=== PATIENT | male | born 1965 | race African-American/Black ===

== ENCOUNTER 2020-01-24 20:06 | Emergency (ER) | payer MEDICARE, MEDICAID, SELFPAY ==
--- NOTE | ~2020-01-24 | XR_ITS ---
EXAMINATION: XR lumbar spine 2-3V EXAM DATE: 01/24/2020 20:28 INDICATION: Acute Pain L3, Left Side Pain After Lifting Heavy Object . TECHNIQUE: Lumber spine frontal, lateral, lateral L5-S1 projections for interpretation. There is no prior study for comparison. FINDINGS: There is mild to moderate disc disease at L5-S1, mild at the other lumbar levels. The verte bral bodies are aligned in the AP dimension. Mild to moderate lumbar facet arthropathy. Sacrum, sacro iliac joints, sacral arcuate lines are intact. There are no acute fractures identified. Paraspinal so ft tissue is unremarkable. IMPRESSION: Mild to moderate lumbar spondylosis. Reviewed, dictated and finalized at location A.
[2020-01-24 20:07] VITALS: BP 163/102; PULSE 95; RESP 22; TEMP 36.9; O2SAT 99
[2020-01-24 20:16] VITALS: BP 163/102; PULSE 95; RESP 22; TEMP 36.9; O2SAT 99
[2020-01-24] MEDS: KETOROLAC 30 MG/ML VIAL (*BKC) IV PUSH (21:01)
[2020-01-24] MEDS: diazePAM INJ (*CRX) 10 MG/2 ML SYRINGE 5 MG IV PUSH (21:01)
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
[2020-01-24 22:02] VITALS: BP 119/76; PULSE 74; RESP 18; O2SAT 100
== END 2020-01-24 22:04 | disposition home or self-care (01) ==
PROVIDERS: Emergency Provider Emergency Medicine; PCP Family Medicine
DX: S39.012A Strain of muscle, fascia and tendon of lower back, initial encounter (principal); M54.32 Sciatica, left side; K21.9 Gastro-esophageal reflux disease without esophagitis; E11.9 Type 2 diabetes mellitus without complications; Z79.84 Long term (current) use of oral hypoglycemic drugs; Z85.47 Personal history of malignant neoplasm of testis; X50.0XXA Overexertion from strenuous movement or load, initial encounter
CPT/HCPCS: 72100; 96374; 96375; 99284; J1885; J3360

== ENCOUNTER 2022-05-17 11:55 | Outpatient (CLI) | payer MEDICARE, SELFPAY ==
[2022-05-17 12:33] LABS: Basophils Percent Auto 0.3 % (0.2-1.2); Eosinophils Absolute Auto 0.1 K/mm3 (0-0.3); Eosinophils Percent Auto 1.1 % (0-4.4); Hematocrit 40.8 % (42.0-52.0); Hemoglobin 12.9 g/dL (14.0-18.0); Immature Granulocyte Absolute 0.02 K/mm3 (0.00-0.031); Immature Granulocyte Percent A 0.3 % (0-0.5); Lymphocytes Absolute Auto 2.69 K/mm3 (0.9-3.2); Lymphocytes Percent Auto 36.4 % (18.3-44.2); Mean Corpuscular HGB Conc 31.6 g/dl (32-36); Mean Corpuscular Volume 82.1 fl (80-100); Mean Platelet Volume 8.9 fl (7.4-10.4); Monocytes Absolute Auto 0.6 K/mm3 (0.1-0.6); Monocytes Percent Auto 7.8 % (2.6-8.5); Neutrophils Percent Auto 54.1 % (45.5-73.1); Platelet Count Result 227 k/mm3 (150-375); Red Blood Count 4.97 M/mm3 (4.6-6.20); Red Cell Distribution Width 14.6 % (11.5-14.5); White Blood Count 7.4 K/mm3 (4.5-10.0)
[2022-05-17 13:35] LABS: Hepatitis C Virus Antibody Reactive (Negative)
[2022-05-17 13:55] LABS: Hemoglobin A1C 7.9 % (<5.7)
[2022-05-17 14:00] LABS: Alanine Aminotransferase 24 U/L (6-50); Albumin Level 4.5 g/dL (3.5-5.1); Alkaline Phosphatase 65 U/L (38-126); Anion Gap 6 mmol/L (8-16); Aspartate Amino Transferase 24 U/L (17-59); Bilirubin,Total 0.5 mg/dL (0.2-1.3); Blood Urea Nitrogen 9 mg/dL (9-20); Calcium 8.5 mg/dL (8.4-10.2); Carbon Dioxide 29 mmol/L (22-30); Chloride 104 mmol/L (98-107); Cholesterol 145 mg/dL (0-200); Estimated Glomerular Filt Rate > 60; Glucose 142 mg/dL (65-110); HDL Direct 39 mg/dL; Potassium 4.2 mmol/L (3.4-5.0); Sodium 139 mmol/L (137-145); Triglycerides 63 mg/dL (<150)
[2022-05-17 14:12] LABS: LDL Cholesterol Direct 75 mg/dL
[2022-05-17 14:26] LABS: Prostate Specific Antigen 4.8 ng/mL (< OR = 4.0)
== END 2022-05-17 11:56 | disposition home or self-care (01) ==
PROVIDERS: PCP Internal Medicine; Visit Provider Nurse Practitioner
DX: E11.9 Type 2 diabetes mellitus without complications (principal); B19.20 Unspecified viral hepatitis C without hepatic coma; Z12.5 Encounter for screening for malignant neoplasm of prostate
CPT/HCPCS: 36415; 80053; 80061; 83036; 84153; 85025; 86803; 87522; G0103

== ENCOUNTER 2022-09-23 08:00 | Outpatient (NON) | payer MEDICARE, SELFPAY | END 2022-09-23 08:01 | disposition home or self-care (01) | LOC: ANHLAB 09-24 09:20 | PROVIDERS: PCP Internal Medicine; Visit Provider Internal Medicine Gastroenterology | DX: Z12.11 Encounter for screening for malignant neoplasm of colon (principal) | CPT/HCPCS: 88305 ==

== ENCOUNTER 2022-09-23 08:09 | Day surgery (SDC) | payer MEDICARE, SELFPAY ==
[2022-08-14 11:44] VITALS: BMI 27.8
[2022-09-10 09:26] VITALS: BMI 26.4
--- NOTE | 2022-09-23 07:02 | WPDANESEPPF ---
Anes - Initial Pre Proc Eval Procedure: Operation Date: 09/23/22 10:30 Proposed Procedures p Screening Colonoscopy - Tex Avila MD Date/Time: 09/23/22 07:02 Surgeon: Tex Avila MD Pre Op Diagnosis: Neoplasm Screening Patient Data Age: 56 Gender: M Height: 1.8 m Weight: 86 kg Allergies Allergy/AdvReac Type Severity Reaction Status Date / Time tramadol Allergy Intermediate Rash Verified 09/23/22 08:53 codeine Allergy Mild ITCHING Verified 09/23/22 08:53 Home Medications Medication Instructions Recorded Confirmed Type metformin 1,000 mg tablet 1,000 mg PO BID #180 tabs 05/21/22 09/23/22 Rx atorvastatin 10 mg tablet 10 mg PO QHS #90 tabs 09/19/22 09/23/22 Rx lisinopril 5 mg tablet 5 mg PO DAILY #90 tabs 09/19/22 09/23/22 Rx Patient hx anesthesia problems: none Family hx anesthesia problems: none Results Review: All pre-operative results and documents have been reviewed as part of the pre-operative evaluation. PENDING SALE TO [facility] Past Medical History Medical History (Updated 09/23/22 @ 07:03 by Gerson Lopez DO) Diabetes GERD (gastroesophageal reflux disease) Hyperlipidemia due to type 2 diabetes mellitus Hypertension associated with diabetes Testicular cancer Surgical History Surgical History (Updated 05/28/22 @ 14:04 by Elise Ibarra NP) H/O foot surgery Social History Social History (Updated 05/28/22 @ 13:08 by Jordyn Paredes CMA) Smoking packs per day: 0.5 Smoking cigarettes per day: 10.0 Years smoked: 15 Smoking pack-years: 7.50 Smoking status: Current every day smoker Tobacco type: cigarettes Alcohol intake: current Alcohol use details: rarely Substance use: current Substance use type: marijuana Lack of Transportation: No Lack of Food: Sometimes True Current Housing: Decline to Answer Concerned About Future Housing: Decline to Answer Difficulty Paying Gas/Electric Bills: No Difficulty Paying for Meds: No Currently Unemployed: No Education: High School Diploma/GED Difficulty w/ Childcare or Family Care: No Living arrangements: with family Gender identity (if verbalized by the patient): Male Sexual Orientation (if Verbalized by the Patient): Straight or Heterosexual Spiritual care concerns: No Anes - Eval Final PreProcedure Day of Procedure 09/23/22 07:02 Patient weight: overweight Heart: regular rate and rhythm Lungs: clear to auscultation Airway: Mallampati scale class II Neurological: alert and oriented Last oral intake: >/= 8 hours ASA classification: III Emergent: no Anesthetic plan: proceed Anesthesia type and monitoring: general GIVS and standard monitoring Results Review: All pre-operative results and documents have been reviewed as part of the pre-operative evaluation. Informed Consent: The patient's anesthetic plan and its attendant risks and benefits were discussed with the patient/family/POA. Questions were solicited and answers provided to the satisfaction of the patient/family/POA.
[2022-09-23 08:30] VITALS: BP 118/90; PULSE 84; RESP 20; TEMP 36.9; O2SAT 100
--- NOTE | 2022-09-23 08:54 | PM.HPGS ---
History of Present Illness History of Present Illness Consent: Risks, benefits, and alternatives have been discussed and questions answered. Patient agrees to proceed with procedure. Chief complaint: Neoplasm Screening Narrative: All Messer Jr. is a 56 year old male here for screening colonoscopy, last one about 10 years ago, also noted mild anemia Review of Systems Constitutional: Constitutional: Denies headache(s) and Denies weakness Eyes: Eyes: Denies blurry vision ENT: Reports Normal hearing present, Denies headache(s) and Denies neck pain Cardiovascular: Cardiovascular: Denies chest pain and Denies dyspnea Respiratory: Respiratory: Denies dyspnea Gastrointestinal: Gastrointestinal: Reports no additional gastrointestinal complaints Genitourinary: Genitourinary: Denies dysuria Musculoskeletal: Musculoskeletal: Denies neck pain Integumentary/Breasts: Skin/Breast: Denies dry skin Neurologic: Reports Normal hearing present, Denies headache(s) and Denies weakness Psychiatric: Psychiatric: Denies anxiety Endocrine: Endocrine: Denies change in body appearance Hematologic/Lymphatic: Hematologic/Lymphatic: Denies easy bleeding Allergic/Immunologic: Allergic/Immunologic: Denies urticaria PMFSH Past Medical History Medical History (Updated 09/23/22 @ 07:03 by Gerson Lopez DO) Diabetes GERD (gastroesophageal reflux disease) Hyperlipidemia due to type 2 diabetes mellitus Hypertension associated with diabetes Testicular cancer Surgical History Surgical History (Updated 05/28/22 @ 14:04 by Elise Ibarra NP) H/O foot surgery Social History Social History (Updated 05/28/22 @ 13:08 by Jordyn Paredes CMA) Smoking packs per day: 0.5 Smoking cigarettes per day: 10.0 Years smoked: 15 Smoking pack-years: 7.50 Smoking status: Current every day smoker Tobacco type: cigarettes Alcohol intake: current Alcohol use details: rarely Substance use: current Substance use type: marijuana Lack of Transportation: No Lack of Food: Sometimes True Current Housing: Decline to Answer Concerned About Future Housing: Decline to Answer Difficulty Paying Gas/Electric Bills: No Difficulty Paying for Meds: No Currently Unemployed: No Education: High School Diploma/GED Difficulty w/ Childcare or Family Care: No Living arrangements: with family Gender identity (if verbalized by the patient): Male Sexual Orientation (if Verbalized by the Patient): Straight or Heterosexual Spiritual care concerns: No Meds Home Medications and Allergies Home Medications Medication Instructions Recorded Confirmed Type metformin 1,000 mg tablet 1,000 mg PO BID #180 tabs 05/21/22 09/23/22 Rx atorvastatin 10 mg tablet 10 mg PO QHS #90 tabs 09/19/22 09/23/22 Rx lisinopril 5 mg tablet 5 mg PO DAILY #90 tabs 09/19/22 09/23/22 Rx Allergies Allergy/AdvReac Type Severity Reaction Status Date / Time tramadol Allergy Intermediate Rash Verified 09/23/22 08:53 codeine Allergy Mild ITCHING Verified 09/23/22 08:53 Exam Const: General: comfortable and no acute distress HENMT: Face/Nose/Sinus: Normal nares present Eyes: General: appearance normal, both eyes and all related structures Neck: Neck: no JVD Resp: Auscultation: clear to auscultation bilaterally Cardio: Rate: regular rate Rhythm: regular rhythm GI: Inspection: non-distended GI Palp: Yes Soft to palpation Skin: General skin exam: normal color Neuro: General: gait normal Speech: normal speech Extrem: General: normal to inspection Psych: Mental Status: mental status grossly normal Assessment and Plan Assessment and plan (1) Screening for colon cancer: Code(s): Z12.11 - Encounter for screening for malignant neoplasm of colon Status: Acute Assessment and Plan: colonoscopy
[2022-09-23 08:58] LABS: Glucose Point of Care 169 mg/dl (65-105)
[2022-09-23] MEDS: LACTATED RINGERS 1,000 ML 150 ML IV CONT (08:59)
[2022-09-23 09:13] VITALS: BP 102/72; PULSE 86; RESP 15; O2SAT 97
[2022-09-23 09:23] VITALS: BP 105/79; PULSE 74; RESP 16; O2SAT 100
[2022-09-23 09:33] VITALS: BP 131/98; PULSE 79; RESP 16; O2SAT 95
[2022-09-23 09:50] VITALS: BP 131/92; PULSE 66; RESP 16; O2SAT 100
--- NOTE | 2022-09-23 09:57 | SUR.PHASEII ---
completed discharge instruction-stressed the restriction of not driving for 12hrs- pt not in agreement
--- NOTE | 2022-09-23 11:12 | WPDANESPN ---
Anes - Prog Note Post-Op Date/Time: 09/23/22 11:12 Cardiovascular status: normal Respiratory status: normal Airway patency: baseline Mental status: baseline Post-Op hydration status: normal Vital Signs: Last Vital Signs Temp 36.9 C 09/23/22 08:30 Pulse 66 09/23/22 09:50 Resp 16 09/23/22 09:50 BP 131/92 H 09/23/22 09:50 Pulse Ox 100 09/23/22 09:50 O2 Del Method Room Air 09/23/22 09:50 Pain Score (VAS): 0 I/O: Intake & Output 09/22/22 09/23/22 09/23/22 23:59 07:59 15:59 Intake Total 300 Balance 300 09/23/22 08:55 POC Capillary Glucose 169 H Post-procedural complaints: none Patient Feedback: Patient satisfied with anesthetic care. Other Findings: Patient vital signs back to baseline. Patient denies nausea and vomiting. Patient's pain under control. Patient OK for discharge.
== END 2022-09-23 10:52 | disposition home or self-care (01) ==
PROVIDERS: PCP Internal Medicine; Visit Provider Internal Medicine Gastroenterology
PROC: 0DJD8ZZ Inspection of Lower Intestinal Tract, Via Natural or Artificial Opening Endoscopic (ICD-10-PCS; CPT 45378; principal; 2022-09-23 10:30)
DX: Z12.11 Encounter for screening for malignant neoplasm of colon (principal)
CPT/HCPCS: 45385

== ENCOUNTER 2022-11-05 13:28 | Outpatient (CLI) | payer MEDICARE, SELFPAY ==
[2022-11-05 18:40] LABS: Basophils Percent Auto 0.3 % (0.2-1.2); Eosinophils Absolute Auto 0.1 K/mm3 (0-0.3); Eosinophils Percent Auto 0.9 % (0-4.4); Hematocrit 41.1 % (42.0-52.0); Hemoglobin 12.8 g/dL (14.0-18.0); Immature Granulocyte Absolute 0.03 K/mm3 (0.00-0.031); Immature Granulocyte Percent A 0.3 % (0-0.5); Lymphocytes Absolute Auto 2.86 K/mm3 (0.9-3.2); Lymphocytes Percent Auto 31.7 % (18.3-44.2); Mean Corpuscular HGB Conc 31.1 g/dl (32-36); Mean Corpuscular Volume 83.4 fl (80-100); Mean Platelet Volume 10.8 fl (7.4-10.4); Monocytes Absolute Auto 0.7 K/mm3 (0.1-0.6); Monocytes Percent Auto 7.2 % (2.6-8.5); Neutrophils Absolute Auto 5.4 K/mm3 (1.3-6.7); Neutrophils Percent Auto 59.6 % (45.5-73.1); Platelet Count Result 269 k/mm3 (150-375); Red Blood Count 4.93 M/mm3 (4.6-6.20); Red Cell Distribution Width 14.1 % (11.5-14.5)
[2022-11-05 19:10] LABS: Iron 80 ug/dL (49-181)
[2022-11-05 19:16] LABS: Prostate Specific Antigen 5.7 ng/mL (< OR = 4.0)
[2022-11-05 19:23] LABS: Percent Iron Saturation 25 % (20-50)
[2022-11-05 19:50] LABS: Hepatitis C Virus Antibody Reactive (Negative)
[2022-11-05 19:52] LABS: Folic Acid 12.9 ng/mL (2.76->20)
[2022-11-06 14:30] LABS: Alanine Aminotransferase 23 U/L (6-50); Albumin Level 4.5 g/dL (3.5-5.1); Alkaline Phosphatase 74 U/L (38-126); Anion Gap 8 mmol/L (8-16); Aspartate Amino Transferase 26 U/L (17-59); Bilirubin,Total 0.3 mg/dL (0.2-1.3); Blood Urea Nitrogen 5 mg/dL (9-20); Calcium 9.5 mg/dL (8.4-10.2); Carbon Dioxide 27 mmol/L (22-30); Chloride 105 mmol/L (98-107); Estimated Glomerular Filt Rate > 60; Glucose 88 mg/dL (65-110); Potassium 4.7 mmol/L (3.4-5.0); Sodium 140 mmol/L (137-145)
[2022-11-06 14:33] LABS: Hemoglobin A1C 7.2 % (<5.7)
[2022-11-08 16:35] LABS: Hepatitis C RNA, Quant PCR <15 IU/mL
== END 2022-11-05 13:29 | disposition home or self-care (01) ==
LOC: ANHGOSHLAB 13:30
PROVIDERS: PCP Internal Medicine; Visit Provider Nurse Practitioner
DX: D64.9 Anemia, unspecified (principal); R97.20 Elevated prostate specific antigen [PSA]; B19.20 Unspecified viral hepatitis C without hepatic coma; E11.9 Type 2 diabetes mellitus without complications
CPT/HCPCS: 36415; 80053; 82607; 82728; 82746; 83036; 83540; 83550; 84153; 85025; 86803; 87522

== ENCOUNTER 2023-05-10 10:02 | Emergency (ER) | payer MEDICARE, SELFPAY ==
[2023-05-10 10:23] VITALS: BP 142/85; PULSE 94; RESP 16; TEMP 36.8; O2SAT 100
--- NOTE | 2023-05-10 11:04 | ED.GENADULT ---
HPI - General Adult General Chief complaint: Unspecified Stated complaint: nose infection Time Seen by Provider: 05/10/23 10:38 Source: patient Mode of arrival: ambulatory Limitations: no limitations History of Present Illness HPI narrative: Patient is a 57 y/o male who presents to the ED with concern for a nasal infection. Patient reports having nasal irritation in his R nare for the past 1 week. He complains of itching, pain, nasal drainage, right-sided nasal congestion. He states he feels as though he has something in his nose. He has been picking his nose frequently. He has been using Neosporin without improvement. He states he had similar symptoms in the past and was seen here and prescribed an antibiotic ointment which resolved the issue. Denies any other URI symptoms, cough, fevers, shortness of breath, difficulty swallowing or breathing. Related Data Allergies Allergy/AdvReac Type Severity Reaction Status Date / Time tramadol Allergy Intermediate Rash Verified 05/10/23 10:28 codeine Allergy Mild ITCHING Verified 05/10/23 10:28 Review of Systems Review of Systems: CONSTITUTIONAL: Denies fever, chills, or sweats. ENT: See HPI. CARDIOVASCULAR: Denies chest pain. RESPIRATORY: Denies cough or dyspnea. All systems reviewed & are unremarkable except as noted in HPI and below PMFSH Past Medical History Medical History Diabetes GERD (gastroesophageal reflux disease) Hyperlipidemia due to type 2 diabetes mellitus Hypertension associated with diabetes Testicular cancer Surgical History Surgical History H/O foot surgery Social History Social History Smoking packs per day: 0.5 Smoking cigarettes per day: 10.0 Years smoked: 15 Smoking pack-years: 7.50 Smoking status: Current every day smoker Tobacco type: cigarettes Alcohol intake: current Alcohol use details: rarely Substance use: current Substance use type: marijuana Lack of Transportation: No Lack of Food: Sometimes True Current Housing: Decline to Answer Concerned About Future Housing: Decline to Answer Difficulty Paying Gas/Electric Bills: No Difficulty Paying for Meds: No Currently Unemployed: No Education: High School Diploma/GED Difficulty w/ Childcare or Family Care: No Living arrangements: with family Gender identity (if verbalized by the patient): Male Sexual Orientation (if Verbalized by the Patient): Straight or Heterosexual Spiritual care concerns: No Exam Narrative: GENERAL: Well appearing, well-nourished, non-toxic, in no acute distress. HEAD: Normocephalic, atraumatic. ENT: Deviated nasal septum. No nasal drainage. R nare very dry, dried crusting in the nasal vestibule. No bleeding. No surrounding erythema. No evidence of focal abscess. TTP along R outer inferior nose. RESPIRATORY: Airway patent, respirations nonlabored. CARDIOVASCULAR: Regular rate and rhythm. MUSCULOSKELETAL: Moves all extremities. No gross deformities. SKIN: Warm, dry, normal color. NEURO: A&O X3. Speech clear. PSYCHIATRIC: Appropriate mood and affect. Normal interaction. Course Vital Signs Vital signs: Vital Signs Temperature 98.3 F 05/10/23 10:23 Pulse Rate 94 05/10/23 10:23 Respiratory Rate 16 05/10/23 10:23 Blood Pressure 142/85 H 05/10/23 10:23 Pulse Oximetry 100 05/10/23 10:23 Oxygen Delivery Room Air 05/10/23 10:23 Temperature 98.3 F 05/10/23 10:23 Pulse Rate 94 05/10/23 10:23 Respiratory Rate 16 05/10/23 10:23 Blood Pressure 142/85 H 05/10/23 10:23 Pulse Oximetry 100 05/10/23 10:23 Oxygen Delivery Room Air 05/10/23 10:23 Medical Decision Making MDM Narrative Medical decision making narrative: Will prescribe mupirocin for possible nasal infection. Advised efrain
[2023-05-10 12:08] LABS: Influenza A QL RT-PCR Negative (Negative); Influenza B QL RT-PCR Negative (Negative); RSV RNA, RT-PCR Negative (Negative); SARS-CoV-2 RNA PCR Negative (Negative)
== END 2023-05-10 12:07 | disposition home or self-care (01) ==
PROVIDERS: Emergency Provider Physician Assistant; PCP Internal Medicine
DX: J34.89 Other specified disorders of nose and nasal sinuses (principal); Z20.822 Contact with and (suspected) exposure to COVID-19; E11.69 Type 2 diabetes mellitus with other specified complication; E78.5 Hyperlipidemia, unspecified; I15.2 Hypertension secondary to endocrine disorders; K21.9 Gastro-esophageal reflux disease without esophagitis; F17.210 Nicotine dependence, cigarettes, uncomplicated; Z85.47 Personal history of malignant neoplasm of testis
CPT/HCPCS: 87637; 99283

== ENCOUNTER 2023-05-25 17:50 | Emergency (ER) | payer MEDICARE, SELFPAY ==
[2023-05-25 17:59] VITALS: BP 145/100; PULSE 100; RESP 20; TEMP 36.7; O2SAT 98
--- NOTE | 2023-05-25 19:35 | ED.GENADULT ---
HPI - General Adult General Chief complaint: Skin/Abscess/Foreign Body Stated complaint: Nose infection Time Seen by Provider: 05/25/23 19:30 History of Present Illness HPI narrative: 57-year-old male present to the emergency department for evaluation of irritation on the inside of his right nostril. Patient states it has been going on for an extended period of time. Patient states he has had previous follow-up with physicians and he was told he had a nose infection . Patient suspects that he has a parasite in his nose. Related Data Allergies Allergy/AdvReac Type Severity Reaction Status Date / Time tramadol Allergy Intermediate Rash Verified 05/10/23 10:28 codeine Allergy Mild ITCHING Verified 05/10/23 10:28 Review of Systems Review of Systems: All systems reviewed & are unremarkable except as noted in HPI and below PMFSH Past Medical History Medical History Diabetes GERD (gastroesophageal reflux disease) Hyperlipidemia due to type 2 diabetes mellitus Hypertension associated with diabetes Testicular cancer Surgical History Surgical History H/O foot surgery Social History Social History Smoking packs per day: 0.5 Smoking cigarettes per day: 10.0 Years smoked: 15 Smoking pack-years: 7.50 Smoking status: Current every day smoker Tobacco type: cigarettes Alcohol intake: current Alcohol use details: rarely Substance use: current Substance use type: marijuana Lack of Transportation: No Lack of Food: Sometimes True Current Housing: Decline to Answer Concerned About Future Housing: Decline to Answer Difficulty Paying Gas/Electric Bills: No Difficulty Paying for Meds: No Currently Unemployed: No Education: High School Diploma/GED Difficulty w/ Childcare or Family Care: No Living arrangements: with family Gender identity (if verbalized by the patient): Male Sexual Orientation (if Verbalized by the Patient): Straight or Heterosexual Spiritual care concerns: No Exam Narrative: APPEARANCE: Well appearing, no pain, no distress, well-nourished. HEAD: normocephalic, atraumatic. EYES: PERRLA/EOMI, conjunctivae clear. NOSE: Excoriation inside of the right nares EARS:TMS clear with good light reflex. THROAT: Pharynx clear, no exudate. NECK: Supple. No adenopathy, no masses. RESPIRATORY: Airway patent, respirations nonlabored. Clear to auscultation bilaterally, no rales, rhonchi, wheezing. CARDIOVASCULAR: Regular rate and rhythm without murmurs rubs or gallops. ABDOMINAL: Soft, nontender, nondistended, normal bowel sounds MUSCULOSKELETAL: Moves all extremities. Strength/ROM intact, No edema, No calf tenderness. NEURO: Alert. Cranial nerves II through XII intact. grossly intact SKIN: Warm, dry. Normal Color Course Course Emergency Course: 57-year-old male presents to the emergency department for concern of nasal parasites. No evidence nasal parasites by was seen. Patient does have excoriation on the inside of his nostril and patient has been actively picking and scratching at his nostril. Patient was treated with Bactroban for suspected bacterial infection and patient was provided follow-up with ENT. Vital Signs Vital signs: Vital Signs Temperature 98.0 F 05/25/23 17:59 Pulse Rate 100 05/25/23 17:59 Respiratory Rate 20 05/25/23 17:59 Blood Pressure 145/100 H 05/25/23 17:59 Pulse Oximetry 98 05/25/23 17:59 Oxygen Delivery Room Air 05/25/23 17:59 Temperature 98.0 F 05/25/23 17:59 Pulse Rate 100 05/25/23 17:59 Respiratory Rate 20 05/25/23 17:59 Blood Pressure 145/100 H 05/25/23 17:59 Pulse Oximetry 98 05/25/23 17:59 Oxygen Delivery Room Air 05/25/23 17:59 Medical Decision Making Vital Signs Vital Signs: Vital Signs Temperature
== END 2023-05-25 20:16 | disposition home or self-care (01) ==
LOC: ANHED 19:56
PROVIDERS: Emergency Provider Emergency Medicine; PCP Internal Medicine
DX: L98.8 Other specified disorders of the skin and subcutaneous tissue (principal); E11.69 Type 2 diabetes mellitus with other specified complication; E78.5 Hyperlipidemia, unspecified; I15.2 Hypertension secondary to endocrine disorders; K21.9 Gastro-esophageal reflux disease without esophagitis; F17.210 Nicotine dependence, cigarettes, uncomplicated; Z85.47 Personal history of malignant neoplasm of testis; Z79.84 Long term (current) use of oral hypoglycemic drugs
CPT/HCPCS: 99283

== ENCOUNTER 2023-05-27 13:18 | Outpatient (CLI) | payer MEDICARE, SELFPAY ==
--- NOTE | ~2023-05-27 | XR_ITS ---
EXAMINATION: XR facial bones min 3V DATE: 05/27/2023 13:38 INDICATION: Parasites in right nostril. TECHNIQUE: 4 views of the facial bones were obtained. COMPARISON: Head CT 07/18/2012 FINDINGS: Bone alignment is normal. No fracture. The paranasal sinuses are normal. IMPRESSION: 1. Normal facial bones. Reviewed, dictated and finalized at location E. D FINISHER IMPRESSION: 1. Normal facial bones.
== END 2023-05-27 13:19 | disposition home or self-care (01) ==
PROVIDERS: PCP Internal Medicine; Visit Provider Nurse Practitioner
DX: J34.89 Other specified disorders of nose and nasal sinuses (principal)
CPT/HCPCS: 70150

== ENCOUNTER 2023-06-27 13:09 | Outpatient (CLI) | payer MEDICARE, SELFPAY ==
--- NOTE | ~2023-06-27 | CT_ITS ---
EXAMINATION: CT sinus wo con DATE: 06/27/2023 13:20 INDICATION: Headache. Pressure in the nasal area. TECHNIQUE: Computed tomography (CT) of the paranasal sinuses was performed without contrast. Iterativ e reconstruction technique was employed. Exam dose: 394.17 mGy-cm total exam DLP. COMPARISON: None FINDINGS: There is slight rightward bowing of nasal septum. Moderately prominent symmetric soft tissue swelling of the inferior nasal turbinates. The ostiomeatal units are patent bilaterally. The frontal sinuses are well-developed and aerated. Minimal focal lucent septal soft tissue thickenin g in the ethmoids. The sphenoid sinuses are normally developed and aerated. Small mucus retention cyst in the anteromedial lower right maxillary sinus.. There are several small focal areas of mucoperiosteal thickening of the left maxillary sinus. The mastoid air cells are well-developed and aerated. IMPRESSION: Minimal focal mucosal periosteal thickening of the left maxillary sinus, small right max illary sinus mucous retention cyst Minimal focal septal soft tissue thickening the ethmoid air cells Paranasal sinuses, ostiomeatal units and mastoid air cells are otherwise clear Reviewed, dictated and finalized at Location A. Reviewed, dictated and finalized at location B. IMPRESSION: Minimal focal mucosal periosteal thickening of the left maxillary sinus, small right maxillary sinus mucous retention cyst Minimal focal septal soft tissue thickening the ethmoid air cells Paranasal sinuses, ostiomeatal units and mastoid air cells are otherwise clear
== END 2023-06-27 13:10 ==
LOC: GOSHIMG 13:10
PROVIDERS: PCP Internal Medicine; Visit Provider Otolaryngology
DX: L73.9 Follicular disorder, unspecified (principal); J32.9 Chronic sinusitis, unspecified
CPT/HCPCS: 70486

== ENCOUNTER 2023-09-01 09:45 | Emergency (ER) | payer MEDICARE, SELFPAY ==
[2023-09-01 09:46] VITALS: BP 140/90; PULSE 75; RESP 16; TEMP 36.7; O2SAT 100
[2023-09-01 10:31] LABS: Basophils Percent Auto 0.3 % (0.2-1.2); Eosinophils Percent Auto 0.5 % (0-4.4); Hematocrit 42.4 % (42.0-52.0); Hemoglobin 13.2 g/dL (14.0-18.0); Immature Granulocyte Absolute 0.01 K/mm3 (0.00-0.031); Immature Granulocyte Percent A 0.1 % (0-0.5); Lymphocytes Absolute Auto 2.26 K/mm3 (0.9-3.2); Lymphocytes Percent Auto 28.4 % (18.3-44.2); Mean Corpuscular HGB Conc 31.1 g/dl (32-36); Mean Corpuscular Hemoglobin 25.4 pg (26-34); Mean Corpuscular Volume 81.5 fl (80-100); Mean Platelet Volume 8.9 fl (7.4-10.4); Monocytes Absolute Auto 0.6 K/mm3 (0.1-0.6); Monocytes Percent Auto 7.2 % (2.6-8.5); Neutrophils Absolute Auto 5.1 K/mm3 (1.3-6.7); Neutrophils Percent Auto 63.5 % (45.5-73.1); Platelet Count Result 315 k/mm3 (150-375); Red Cell Distribution Width 13.5 % (11.5-14.5)
[2023-09-01 10:35] LABS: Appearance Urine Cloudy (Clear); Bacteria Urine None Seen /hpf; Bilirubin Urine Negative (Negative); Blood Urine Negative (Negative); Color Urine Dark Yellow (Yellow); Glucose Urine UA 1+ mg/dL (Negative); Ketones Urine Negative (Negative); Leukocyte Esterase Ur 2+ LEU/UL (Negative); Nitrate Urine Negative (Negative); Protein Urine 2+ mg/dL (Negative); RBC Urine 0-2 /hpf (0-2); Specific Grav Ur 1.026 (1.001-1.035); Squamous Epithelial Cell Urine None Seen /hpf (Few); WBC Urine >100 /hpf (0-3); pH Urine 5.5 (5.0-9.0)
[2023-09-01 10:39] LABS: Alanine Aminotransferase 17 U/L (6-50); Albumin Level 4.7 g/dL (3.5-5.1); Alkaline Phosphatase 98 U/L (38-126); Anion Gap 7 mmol/L (4-12); Aspartate Amino Transferase 23 U/L (17-59); Bilirubin,Total 0.6 mg/dL (0.2-1.3); Blood Urea Nitrogen 8 mg/dL (9-20); Calcium 9.5 mg/dL (8.4-10.2); Carbon Dioxide 27 mmol/L (22-30); Chloride 103 mmol/L (98-107); Estimated CRCL calculation 95 ml/min; Estimated Glomerular Filt Rate > 60; Glucose 156 mg/dL (65-110); Potassium 4.5 mmol/L (3.4-5.0); Sodium 137 mmol/L (137-145)
[2023-09-01 10:44] LABS: Acetaminophen < 10 ug/mL (10-30); Ethanol < 10 mg/dL (<10); Salicylate < 1.0 mg/dL (2-20)
[2023-09-01 10:47] LABS: Add Urine Microscopic? YES
[2023-09-01 10:49] LABS: Barbiturate Screen Urine Negative (Negative); Benzodiazepines Screen Urine Negative (Negative)
[2023-09-01 10:51] LABS: Amphetamine Screen Urine Positive (Negative); Cannabinoid Screen Urine Negative (Negative); Cocaine Screen Urine Negative (Negative); Methadone Screen Urine Negative (Negative); Opiate Screen Urine Negative (Negative); Phencyclidine Screen Urine Negative (Negative)
[2023-09-01] MEDS: cefTRIAXone 1 GM VIAL IM (11:15)
[2023-09-01] MEDS: LIDOCAINE HCL 1% LOCAL INJ 10 ML VIAL (11:15)
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
[2023-09-01 13:19] LABS: Influenza A QL RT-PCR Negative (Negative); Influenza B QL RT-PCR Negative (Negative); RSV RNA, RT-PCR Negative (Negative); SARS-CoV-2 RNA PCR Negative (Negative)
--- NOTE | 2023-09-01 13:57 | PC.NURSE ---
Pt found wandering ED halls, pt states can I go get a soda? while pointing to the ED waiting room. Pt was able to be redirected back to ED15. Pts RN notified.
[2023-09-01 16:15] VITALS: RESP 16
== END 2023-09-01 16:17 ==
PROVIDERS: Emergency Provider Emergency Medicine; PCP Internal Medicine
DX: R45.6 Violent behavior (principal); F19.10 Other psychoactive substance abuse, uncomplicated; I15.2 Hypertension secondary to endocrine disorders; E11.69 Type 2 diabetes mellitus with other specified complication; E78.5 Hyperlipidemia, unspecified; K21.9 Gastro-esophageal reflux disease without esophagitis; F17.210 Nicotine dependence, cigarettes, uncomplicated; Z11.52 Encounter for screening for COVID-19; R82.998 Other abnormal findings in urine; Z79.84 Long term (current) use of oral hypoglycemic drugs; Z79.899 Other long term (current) drug therapy; Z20.822 Contact with and (suspected) exposure to COVID-19
CPT/HCPCS: 36415; 80053; 80307; 81001; 84443; 85025; 87086; 87088; 87637; 96372; 99284; J0696; J2003

== ENCOUNTER 2023-12-05 20:03 | Emergency (ER) | payer MEDICARE, SELFPAY ==
[2023-12-05] VITALS (7 sets, daily range): BP systolic 102–141; BP diastolic 81–97; PULSE 79–103; RESP 16–22; TEMP 36.2–36.6; O2SAT 96–100
--- NOTE | ~2023-12-05 | XR_ITS ---
EXAMINATION: XR chest 1V portable DATE: 12/05/2023 20:34 INDICATION: Drug overdose. TECHNIQUE: A single frontal view of the chest was obtained on 2 radiographs. COMPARISON: Chest 2 views 12/01/2008 FINDINGS: There is no pneumonia, pleural effusion, or pneumothorax. The heart size is normal. There a re old healed right rib fractures. IMPRESSION: 1. No acute cardiopulmonary disease. Reviewed, dictated and finalized at location A.
--- NOTE | 2023-12-05 20:10 | ECG_ITS ---
Test Date: 2023-12-05 20:15:44 Measurements Intervals [place] Rate: 96 P: 51 IN: 161 QRS: -9 QRSD: 117 T: 11 QT: 376 QTc: 477 Interpretive Statements SINUS RHYTHM MODERATE INTRAVENTRICULAR CONDUCTION DELAY [110+ ms QRS DURATION] No previous ECG available for comparison Electronically Signed On 12-06-2023 14:39:29 CDT by Braden Rosenberg M.D.
--- NOTE | 2023-12-05 20:18 | ED.OVERDOSE ---
HPI - Overdose General Chief Complaint: Overdose Stated Complaint: OVERDOSE Time Seen by Provider: 12/05/23 20:11 Source: patient Mode of arrival: EMS Limitations: clinical condition History of Present Illness HPI Narrative: This is a 58-year-old male who presents to the ED for chief complaint of possible overdose. EMS was called out for the patient being unresponsive on the ground. Per EMS he was apneic and pulseless on arrival. EMS started CPR gave Narcan IM x2 and quickly got pulses. He started to come to and became alert ordered x1. EMS states the patient was with a friend gely and has known history of ETOH and marijuana use. Patient is unsure of what happened this evening. He is not sure where he was or where he came from. He can tell me that he has history of diabetes and that he has some tightness in his chest. He feels that his breathing is normal. Denies any further complaints at this time, although history is somewhat Related Data Allergies Allergy/AdvReac Type Severity Reaction Status Date / Time tramadol Allergy Intermediate Rash Verified 12/05/23 20:48 codeine Allergy Mild ITCHING Verified 12/05/23 20:48 Review of Systems Review of Systems: [facility] systems as [facility] Past Medical History Medical History Diabetes GERD (gastroesophageal reflux disease) Hyperlipidemia due to type 2 diabetes mellitus Hypertension associated with diabetes Testicular cancer Surgical History Surgical History H/O foot surgery Social History Social History Smoking packs per day: 0.5 Smoking cigarettes per day: 10.0 Years smoked: 15 Smoking pack-years: 7.50 Smoking status: Current every day smoker Tobacco type: cigarettes Alcohol intake: current Alcohol use details: rarely Substance use: current Substance use type: unknown Do You Feel Safe in your Home?: Yes Lack of Transportation: No Lack of Food: Often True Current Housing: I Do Not Have Housing Concerned About Future Housing: Decline to Answer Difficulty Paying Gas/Electric Bills: No Difficulty Paying for Meds: No Currently Unemployed: No Education: High School Diploma/GED Difficulty w/ Childcare or Family Care: No Living arrangements: with family Gender identity (if verbalized by the patient): Male Sexual Orientation (if Verbalized by the Patient): Straight or Heterosexual Spiritual care concerns: No Exam Narrative: GENERAL: Well-appearing, well-nourished, and in no acute distress. HEAD: Normocephalic, atraumatic. EYES: PERRLA and EOMI. ENT: Nares clear, no rhinorrhea or epistaxis. Mucous membranes moist. Oropharynx without tonsillar hypertrophy exudate or other lesions. NECK: Supple. No adenopathy or masses. CHEST: No respiratory distress. Clear to auscultation. No wheezes rales or rhonchi HEART: Regular rate and rhythm. No murmur heard. Normal peripheral pulses. ABDOMEN: Soft, nontender, nondistended, normal active bowel sounds. MSK: Normal range of motion. No edema. SKIN: Warm, dry, no rash. NEURO: Alert and oriented x3-4. No focal deficits. PSYCH: Normal mood and affect. Course Vital Signs Vital signs: Vital Signs Temperature 97.1 F L 12/05/23 20:05 Pulse Rate 88 12/05/23 20:05 Respiratory Rate 18 12/05/23 20:05 Blood Pressure 141/96 H 12/05/23 20:05 Pulse Oximetry 98 12/05/23 20:05 Temperature 97.8 F 12/05/23 20:18 Pulse Rate 89 12/05/23 22:36 Respiratory Rate 20 12/05/23 22:36 Blood Pressure 122/86 12/05/23 22:36 Pulse Oximetry 96 12/05/23 22:36 Oxygen Delivery Room Air 12/05/23 20:18 MDM - Overdose MDM Narrative Medical decision making narrative: This is a 58-year-old male who presents to the ED for chief complaint of possible overdose. found by EMS,
[2023-12-05 20:47] LABS: Glucose Point of Care 278 mg/dl (65-105)
[2023-12-05] MEDS: SODIUM CHLORIDE 0.9% IV 1,000 ML 999 ML IV CONT ×2 (20:49→22:02)
[2023-12-05 20:53] LABS: Add Urine Microscopic? YES; Appearance Urine Clear (Clear); Bacteria Urine None Seen /hpf; Bilirubin Urine Negative (Negative); Blood Urine Negative (Negative); Color Urine Yellow (Yellow); Glucose Urine UA 3+ mg/dL (Negative); Ketones Urine Negative (Negative); Leukocyte Esterase Ur Trace LEU/UL (Negative); Nitrate Urine Negative (Negative); Non Pathogenic Casts 0-2; Protein Urine 2+ mg/dL (Negative); RBC Urine 0-2 /hpf (0-2); Specific Grav Ur 1.013 (1.001-1.035); Squamous Epithelial Cell Urine None Seen /hpf (Few); Urobilinogen Urine 0.2 mg/dL (<2.0); WBC Urine 21-50 /hpf (0-3)
[2023-12-05 21:50] LABS: Basophils Percent Auto 0.1 % (0.2-1.2); Eosinophils Percent Auto 0.1 % (0-4.4); Hematocrit 39.7 % (42.0-52.0); Hemoglobin 12.4 g/dL (14.0-18.0); Immature Granulocyte Percent A 0.7 % (0-0.5); Lymphocytes Absolute Auto 1.15 K/mm3 (0.9-3.2); Lymphocytes Percent Auto 7.7 % (18.3-44.2); Mean Corpuscular HGB Conc 31.2 g/dl (32-36); Mean Corpuscular Hemoglobin 25.5 pg (26-34); Mean Corpuscular Volume 81.7 fl (80-100); Monocytes Percent Auto 6.4 % (2.6-8.5); Neutrophils Absolute Auto 12.7 K/mm3 (1.3-6.7); Platelet Count Result 224 k/mm3 (150-375); Red Blood Count 4.86 M/mm3 (4.6-6.20); Red Cell Distribution Width 14.7 % (11.5-14.5)
[2023-12-05 22:00] LABS: Acetaminophen < 10 ug/mL (10-30); Ethanol < 10 mg/dL (<10); Salicylate < 1.0 mg/dL (2-20)
[2023-12-05 22:01] LABS: Alanine Aminotransferase 24 U/L (6-50); Albumin Level 4.2 g/dL (3.5-5.1); Alkaline Phosphatase 67 U/L (38-126); Anion Gap 13 mmol/L (4-12); Aspartate Amino Transferase 29 U/L (17-59); Bilirubin,Total 0.2 mg/dL (0.2-1.3); Blood Urea Nitrogen 14 mg/dL (9-20); Calcium 8.8 mg/dL (8.4-10.2); Carbon Dioxide 23 mmol/L (22-30); Chloride 102 mmol/L (98-107); Estimated CRCL calculation 78 ml/min; Estimated Glomerular Filt Rate > 60; Glucose 207 mg/dL (65-110); Potassium 4.7 mmol/L (3.4-5.0); Sodium 138 mmol/L (137-145)
[2023-12-05 22:26] LABS: SARS-CoV-2 RNA PCR Negative (Negative)
[2023-12-05 23:30] LABS: Barbiturate Screen Urine Negative (Negative); Benzodiazepines Screen Urine Negative (Negative)
[2023-12-05 23:32] LABS: Cannabinoid Screen Urine Negative (Negative); Cocaine Screen Urine Negative (Negative); Methadone Screen Urine Negative (Negative); Opiate Screen Urine Negative (Negative); Phencyclidine Screen Urine Negative (Negative)
[2023-12-05 23:55] LABS: Amphetamine Screen Urine Positive (Negative)
[2023-12-06 00:24] VITALS: BP 102/81; PULSE 81; RESP 17; O2SAT 97
== END 2023-12-06 00:40 | disposition home or self-care (01) ==
PROVIDERS: Emergency Medicine; Emergency Provider Physician Assistant; PCP Internal Medicine
DX: T40.2X1A Poisoning by other opioids, accidental (unintentional), initial encounter (principal); N39.0 Urinary tract infection, site not specified; Z20.822 Contact with and (suspected) exposure to COVID-19; K21.9 Gastro-esophageal reflux disease without esophagitis; E11.69 Type 2 diabetes mellitus with other specified complication; E78.5 Hyperlipidemia, unspecified; I15.2 Hypertension secondary to endocrine disorders; F17.210 Nicotine dependence, cigarettes, uncomplicated; Z85.47 Personal history of malignant neoplasm of testis; Z79.84 Long term (current) use of oral hypoglycemic drugs; I45.9 Conduction disorder, unspecified
CPT/HCPCS: 36415; 71045; 80053; 80307; 81001; 82948; 84443; 85025; 87086; 87635; 93005; 96361; 96365; 99284; J0696; J7030

== ENCOUNTER 2024-05-29 13:45 | Outpatient (CLI) | payer MEDICARE, SELFPAY ==
--- OUTSIDE RECORDS SUMMARY | 2024-05-29 13:48 | XMS_ITS | Encounter Summary ---
Author Organization [facility] Address [address] [place] [address] Phone Care Team Providers Care Carpenter Mold Name Role Phone Zion Thurman MD Primary Care Provider Reason for Visit * Reason Onset Date Comments Medication Refill 10/20/2020 Encounter Details Date Type Department Care Team (Late st Contact Info) Description 10/20/2020 Refill [facility] - Family Medicine [facility] [address] [place] [address] Zion Thurman MD [address] [place] [address] Medication Refill Social History Tobacco Use Types Packs/Day Years Used Date Smoking Tobacco: Every Day Cigarettes Smokeless Tobacco: Never Alcohol Use Standard Drinks/Week Comments Yes 2 (1 standard drink = 0.6 oz pur e alcohol) rarely PHQ-2 Answer Date Recorded Total Score - Questions 1-9 0 06/05 Sex and Gender Information Value Date Recorded Sex Assigned at Not on file Legal Sex Male 12:14 AM CDT Gender Identity Not on file Sexual Orientation Not on file documented as of this encounter Miscellaneous Notes * Telephone Encounter - Lillian Quintana - 10/20/2020 7:51 AM CDT Received a faxed Rx request from pharmacy. Reordered refill medication(s) requested and pended for nurse and physician/GRACIE review. Refill encounter routed to nurse Bashir's pool for processing. documented in this encounter Plan of Treatment Not on file documented as of this encounter Visit Diagnoses Diagnosis Type 2 diabetes mellitus with hyperglycemia, without long-term current use of insulin (HCC) documented in this encounter Additional Health Concerns Infection Onset Date Last Indicated Resolved Time COVID - 19 Confirmed 10/18/2021 10/18/2021 022 12:16 AM CDT Assessment Noted Time PHQ-9 Depression Total Score: 0 06/16/19 20 12:48 PM CDT documented as of this encounter Care Teams Carpenter Mold Relationship Specialty Start Date End Date Zion Thurman MD PCP - General Family Medicine 12/14/18 07/28/23 documented as of this encounter
--- OUTSIDE RECORDS SUMMARY | 2024-05-29 13:48 | XMS_ITS | Clinical Summary ---
Author Organization [facility] Address [address] [place] [address] Care Team Providers Care Machine Stacker Name Role Phone Sara Rendon RN Unavailable [phone] Zion Thurman MD Primary Care Provider Source Comments [facility] Affiliates and Associated Physician Practices is amultiple site organization consisting of ambulatory clinics and hospital sitesin [place], [place], [place] and [place]. This disclosure is being madepursuant to the Care Everywhere program and may not contain all information available regarding this patient. Last updated 17.[facility] [employer] Allergies Active Allergy Reactions Criticality Noted Date Comments Codeine Other Medium 04/13/2014 Rash Rash Tramadol Itching Low 04/13/2014 Not sure Not sure Medications * Be aware that medications may not be up to date on this document. Alwaysverify current medications with the patient. Medication Sig Dispensed Refills Start Date End Date Status metFORMIN (GLUCOPHAGE) 1000 MG tablet Take 1,000 mg by mouth 2 times daily with morning and evening meal Active blood glucose (ONETOUCH ULTRA) test strip USE TO TEST BLOOD SUGAR ONCE DAILY 12/05/2020 Active Active Problems Problem Noted Date Diagnosed Date Painful orthopaedic hardware 05/17/2019 Acquired pes planovalgus of right foot 8 Acute post-operative pain 07/18/2017 H/O arthrodesis 12/25/2015 Resolved Problems Problem Noted Date Diagnosed Date Resolved Date Pain, joint, ankle and foot 07/18/2017 07/18/2017 Pes planus 04/13/2014 07/18/2017 HTN (hypertension) 04/13/2014 8 Tobacco abuse 04/13/2014 07/18/2017 Esophageal reflux 04/13/2014 07/18/2017 Social History Tobacco Use Types Packs/Day Years Used Date Smoking Tobacco: Every Day Cigarettes 0.5 20 Smokeless Tobacco: Never Tobacco Cessation:Ready to Q uit: No Alcohol Use Standard Drinks/Week Comments Yes 0 (1 standard drink = 0.6 oz pur e alcohol) seldom Sex and Gender Information Value Date Recorded Sex Assigned at Not on file Gender Identity Not on file Sexual Orientation Not on file Last Filed Vital Signs Vital Sign Reading Time Taken Comments Blood Pressure 107/85 08/24/2019 2:45 PM CDT Pulse 64 08/24/2019 2:45 PM CDT Temperature 36.3 C (97.3 F) 08/24/2019 2:40 PM CDT Respiratory Rate 18 08/24/2019 2:45 PM CDT Oxygen Saturation 99% 08/24/2019 2:45 PM CDT Inhaled Oxygen Concentration - - Weight 92.1 kg (203 lb) 07/31/2020 8:30 AM CDT Height 182.9 cm (6') 07/31/2020 8:30 AM CDT Body Mass Index 27.53 07/31/2020 8:30 AM CDT Plan of Treatment Health Maintenance Due Date Last Done Comments COLOGUARD (AGES 45-75) - COLON CA SCREENING 1964 COLON MONITORING 1964 COLONOSCOPY - COLON CA SCREENING 1964 CT COLONOGRAPHY - COLON CA SCREENING 1964 Colorectal Cancer Screening 1964 FIT - COLON CA SCREENING 1964 FLEX SIG - COLON CA SCREENING 1964 LIPID TESTING 1964 Opioid Medication Agreement - Annual 1964 HIV SCREENING 10/05/1979 HEPATITIS C SCREENING 09/30/1982 DTAP/TDAP/TD VACCINES (1 - Tdap) 10/05/1983 HEPATITIS B VACCINE (1 of 3 - 19+ 3-dose series) 10/05/1983 PNEUMOCOCCAL VACCINE 50+ (1 of 2 - PCV) 10/05/1983 PNEUMOCOCCAL VACCINE (1 of 2 - PCV) 10/05/1983 ZOSTER VACCINE (1 of 2) 2014 SCREENING FOR DIABETES 08/23/2022 0, 04/17/2017, 04/16/2017, Additional history exists COVID-19 VACCINE (1 - 2024- season) 2023 INFLUENZA VACCINE (#1) 2023 DEPRESSION SCREENING 04/07/2024 MEDICARE AWV CALENDAR YEAR 2024 HIB VACCINE Aged Out No longer eligi ble based on patient's age to complete this topic HPV VACCINE Aged Out No longer eligi ble based on patient's age to complete this topic MENINGOCOCCAL (Group B) VACCINE Aged Out No longer eligible based on patient's age to complete this topic MENINGOCOCCAL VACCINE Aged Out No arnold venessa eligible based on patient's age to complete this topic Goals Goal Patient Goal Type Associated Problems Recent Progress Patient-Stated? Author Mobility General No Natasha Mortensen RN Note: Expected end date: 04/06/21 The goal is to maintain or improve your mobility at the optimum level for you. Interventions: Medical Devices Implanted Type Area New Account Interviewer Device Identifier Shelf Expiration Date Model / Serial / Lot Wax Bone Implanted:Qty: 1 on 04/13/2014 by Nikko Gunter DO at [facility] Right: Hip [employer] 01/05/2018 [id number] / / [id number] 3.5 Locking Screw Implanted:Qty: 1 on 04/13/2014 by Nikko Gunter DO at [facility] Right: Foot [id number] 6 / / 3.5 Non Locking Screw Implanted:Qty: 1 on 04/13/2014 by Nikko Gunter DO at [facility] Right: Foot [id number] 7.5 / / Ortholink Standard Plate Implanted:Qty: 1 [facility]/13/[facility] / / 4.0 Non Locking Screw Implanted:Qty: 1 on 04/13/2014 by Nikko Gunter DO at [facility] Right: Foot [id number] 75 / / 3.5 Non Locking Screw Implanted:Qty: 1 on 04/13/2014 by Nikko Gunter DO at [facility] Right: Foot [id number] 0 / / Plate Implanted:Qty: 1 on 04/13/2014 by Nikko Gunter DO at [facility] Right: Foot EDL-001-00 / / 3.5 Locking Screw Implanted:Qty: 1 on 04/13/2014 by Nikko Gunter DO at [facility] Right: Foot [id number]-[id number] 8 / / 3.5 Non Locking Screw Implanted:Qty: 1 on 04/13/2014 by Nikko Gunter DO at [facility] Right: Foot [id number] / / Plate Implanted:Qty: 1 on 04/13/2014 by Nikko Gunter DO at [facility] Right: Foot GENERAL LITHOGRAPHIC WORKER-002-Y / / 3.5 Locking Screw Implanted:Qty: 1 on 04/13/2014 by Nikko Gunter DO at [facility] Right: Foot [id number] 0 / / 3.5 Non Locking Screw Implanted:Qty: 1 on 04/13/2014 by Nikko Gunter DO at [facility] Right: Foot [id number] 4 / / Explanted Type Area New Account Interviewer Device Identifier Shelf Expiration Date Model / Serial / Lot 3.5 Locking Screw Explanted:Qty: 1 on 04/13/2014 at [facility] Right: Foot GENERAL LITHOGRAPHIC WORKER-021-35- 325 / / 3.5 Locking Screw Implanted:Qty: 1 Explanted:Qty: 1 on 04/13/2014 at [facility] Right: Foot GENERAL LITHOGRAPHIC WORKER-021-35- 22 / / Procedures Procedure Name Priority Date/Time Associated Diagnosis Comments GLUCOSE - POINT OF CARE Routine 08/24/2019 11:00 AM CDT from Last 3 Months or Most Recently Relevant to Health Maintenance Results * (ABNORMAL) GLUCOSE - POINT OF CARE (08/24/2019 11:00 AM CDT) Glucose WB/POC 159(H) 70 - 115 mg/dL 08/24/2019 11:04 AM CDT [facility] Specimen Type Venous 08/24/2019 11:04 AM CDT [facility] [place] [facility] [employer] [facility] Blood BLOOD SPECIMEN / Unknown 08/24/2019 11:00 AM CDT 08/24/2019 11:04 AM CDT Nikko Gunter DO LAB - POINT OF CARE ORDERABLES [address] [address] [phone] from Last 3 Months or Most Recently Relevant to Health Maintenance Advance Directives * Full Code (Latest Code Status on File) Date Activated Date Inactivated Comments 04/13/2014 7:24 PM 04/15/2014 5:18 PM Care Teams Machine Stacker Relationship Specialty Start Date End Date Zion Thurman MD PCP - General Family Medicine 12/05/20 Sara Rendon, RN Electric Motor Repair Supervisor 04/14/14
--- OUTSIDE RECORDS SUMMARY | 2024-05-29 13:48 | XMS_ITS | Encounter Summary ---
Author Organization [facility] Address [address] [place] [address] Phone Care Team Providers Care Gear Tooth Grinding Machine Operator Name Role Phone Zion Thurman MD Primary Care Provider [phone] Reason for Visit * Reason Comments Medication Refill Encounter Details Date Type Department Care Team (Late st Contact Info) Description 05/15/2022 Refill [facility] - Family Medicine [facility] [address] [place] [address] Zion Thurman MD [address] [place] [address] Medication Refill Social History Tobacco Use Types [...] encounter Miscellaneous Notes * Telephone Encounter - Marisela Adkins RN - 05/15/2022 9:30 AM INFORMATION SERVICES MANAGER Needs appointment RMATION SERVICES MANAGER documented in this encounter Plan of Treatment Not on file documented as of this encounter Visit Diagnoses Diagnosis Type 2 diabetes mellitus with hyperglycemia, without long-term current use of insulin (HCC) documented in this encounter Additional Health Concerns Assessment Noted Time PHQ-9 Depression Total Score: 0 06/16/19 20 12:48 PM CDT documented as of this encounter Care Teams Gear Tooth Grinding Machine Operator Relationship Specialty Start Date End Date Zion Thurman MD PCP - General Family Medicine 12/14/18 07/28/23 documented as of this encounter
--- OUTSIDE RECORDS SUMMARY | 2024-05-29 13:48 | XMS_ITS | Clinical Summary ---
Author Organization [facility] Address [address] [place] [address] Phone Care Team Providers Care Forklift Material Handler Name Role Phone Unavailable Primary Care Provider Unavailabl e Allergies Active Allergy Reactions Criticality Noted Date Comments Codeine Rash,Itching Medium 06/02/2013 Rash Rash Tramadol Rash,Itching Low 06/02/2013 Not sure Not sure Medications Blood Glucose Monitoring Suppl (ONE TOUCH ULTRA 2) w/Device Kit USE UTD 0 Active Glecaprevir-Pib rentasvir (MAVYRET) 100-40 MG Tablet Take 100 mg by mouth 3 times daily. Take with lunch 84 Tab 1 0 Active Additional Information Patient not taking.Reported on 10/18/2021 Januvia 100 MG Tablet TK 1 T PO QD 0 Active meloxicam (MOBIC) 15 MG Tablet TAKE 1 TABLET PO DAILY 0 Active metFORMIN (GLUCOPHAGE) 1000 MG TabletIndicatio ns:Type 2 diabetes mellitus with hyperglycemia, without long-term current use of insulin (HCC) Take 1 Tablet by mouth 2 times daily (with meals). 180 Tablet 3 1 Active Lancets MiscIndications :Type 2 diabetes mellitus with hyperglycemia, without long-term current use of insulin (HCC) Use as directed 90 Lancet 11 1 Active Glucose Blood (SoBiz10Touch Ultra) StripIndication s:Type 2 diabetes mellitus with hyperglycemia, without long-term current use of insulin ([facility]) USE TO TEST BLOOD SUGAR ONCE DAILY 100 Strip 3 1 Active Active Problems Problem Noted Date Diagnosed Date Diabetes mellitus 10/16/2019 Drug abuse, IV 09/23/2019 Primary osteoarthritis, right ankle and foot 06/2019 Viral hepatitis C 09/08/2019 Hypothyroidism 09/08/2019 Methamphetamine use 06/16/2019 Cocaine use 06/16/2019 Painful orthopaedic hardware 05/17/2019 Elevated BP without diagnosis of hypertension Rhinitis 12/14/2018 Overview (12/14/2018): secondary to meth and cocaine use. Disability of walking 12/14/2018 Acquired pes planovalgus of right foot 8 H/O arthrodesis 12/25/2015 Idiopathic osteoarthritis 01/18/2015 Tobacco dependence syndrome 03/25/2014 Esophageal reflux 03/02/2014 High blood pressure 11/12/2013 Other and unspecified hyperlipidemia 08/19/2013 Immunizations Immunization Administration Dates Next Due Hepatitis A Vaccine 10/31/2015 Hepatitis B Vaccine 10/31/2015 Family History Relation Name Status Comments Father Mother Alive Social History Tobacco Use Types Packs/Day Years Used Date Smoking Tobacco: Every Day Cigarettes Smokeless Tobacco: Never Tobacco Cessation:Ready to Q uit: No; Counseling Given: No Alcohol Use Standard Drinks/Week Comments Yes 2 [...] Sign Reading Time Taken Comments Blood Pressure 134/83 05/26/2023 12:57 PM INDUSTRIAL SPRAYPAINTER Pulse 111 05/26/2023 12:57 PM INDUSTRIAL SPRAYPAINTER Temperature 36.2 C (97.2 F) 05/26/2023 12:57 PM INDUSTRIAL SPRAYPAINTER Respiratory Rate 14 05/26/2023 12:57 PM INDUSTRIAL SPRAYPAINTER Oxygen Saturation 98% 05/26/2023 12:57 PM INDUSTRIAL SPRAYPAINTER Inhaled Oxygen Concentration - - Weight 81.6 kg (180 lb) 05/26/2023 12:57 PM INDUSTRIAL SPRAYPAINTER Height 180.3 cm (5' 11 ) 05/26/2023 12:57 PM INDUSTRIAL SPRAYPAINTER Body Mass Index 25.1 05/26/2023 12:57 PM INDUSTRIAL SPRAYPAINTER Plan of Treatment Health Maintenance Due Date Last Done Comments Diabetes: Eye Exam 1964 Diabetes: Foot Exam 1964 TdaP Immunization 1964 Pneumococcal Immunization Combined (1 of 2 - PCV) 1970 Pneumococcal Immunization (50+ years) (1 of 2 - PCV) 10/05/1983 Colonoscopy 2009 Colorectal Cancer Screening 2009 Cologuard 2014 Immunochemical Fecal Occult Blood 2014 Zoster Immunization (1 of 2) 2014 Hepatitis B Immunization (2 of 3 - 19+ 3-dose series) 11/28/2015 10/31/2015 PSA Discussion 10/05/2019 Diabetes: Hemoglobin A1c 12/17/2019 06/16/2019 Diabetes: Nephropathy Screening 06/27/2020 06/28/2019, 06/28/2019, 06/18/2019, Additional history exists Influenza Immunization (#1) 2023 SARS-COV-2 Immunization (2023- season) 2023 Respiratory Syncytial Virus (RSV) Immunization (Adult) (1 - 1-dose 75+ series) 10/05/2039 Meningococcal Immunization (ACWY) Aged Out No longer eligible based on patient's age to complete this topic Rotavirus Immunization Aged Out No lo nger eligible based on patient's age to complete this topic Procedures Procedure Name Priority Date/Time Associated Diagnosis Comments CMP (COMPREHENSIVE METABOLIC PANEL) Routine 06/28/2019 10:58 AM CDT Type 2 diabetes mellitus with hyperglycemia, without long-term current use of insulin (HCC) POCT GLYCOSYLATED HEMOGLOBIN Routine 06/16/2019 1:00 PM CDT Type 2 diabetes mellitus with hyperglycemia, without long-term current use of insulin (HCC) from Last 3 Months or Most Recently Relevant to Health Maintenance Results * (ABNORMAL) CMP (COMPREHENSIVE METABOLIC PANEL) (06/28/2019 10:58 AM CDT) SODIUM 140 136 - 144 mmol/L 06/28/2019 5:37 PM CDT [facility] POTASSIUM 4.4 3.5 - 5.1 mmol/L 06/28/2019 5:37 PM CDT [facility] CHLORIDE 103 100 - 110 mmol/L 06/28/2019 5:37 PM CDT [facility] CO2, VENOUS 26 22 - 32 mmol/L 06/28/2019 5:37 PM CDT [facility] ANION GAP 15.4 8.0 - 20.0 mmol/L 06/28/2019 5:37 PM CDT [facility] GLUCOSE 194(H) 70 - 99 mg/dL 06/28/2019 5:37 PM CDT [facility] BUN 11 6 - 20 mg/dL 06/28/2019 5:37 PM T [facility] CREATININE, BLOOD 0.64(L) 0.80 - 1.30 mg/dL 06/28/2019 5:37 PM CDT [facility] BUN/CREATININE RATIO 17 12 - 20 ratio 06/28/2019 5:37 PM T [facility] TOTAL PROTEIN 7.8 6.0 - 8.3 g/dL 06/28/2019 5:37 PM CDT [facility] ALBUMIN 4.3 3.5 - 5.2 g/dL 06/28/2019 5:37 PM T [facility] Comment: The colormetric methods used for the determination of Albumin may lead to falsely elevated test results in patients suffering from renal failure or insufficiency due to interference with other proteins. A/G RATIO 1.2 1.0 - 2.0 06/28/2019 5:37 PM [facility] CALCIUM 10.0 8.9 - 10.3 mg/dL 06/28/2019 5:37 PM CDT [facility] T BILI <=0.2 <=1.2 mg/dL 06/28/2019 5:37 PM CDT [facility] SGOT (AST) 21 <=40 U/L 06/28/2019 5:37 PM T [facility] SGPT (ALT) 30 <=41 U/L 06/28/2019 5:37 PM CDT [facility] ALKALINE PHOSPHATASE 68 40 - 130 U/L 06/28/2019 5:37 PM CDT [facility] GFR, EST. NONAFRICAN >60 >=60 06/28/2019 5:37 PM CDT [facility] GFR, EST. >60 >=60 020 5:37 PM CDT [facility] Comment: Creatinine Clearance is the preferred criteria for selecting drug dose adjustments in renally impaired patients. The GFR is provided as additional pertinent clinical information. GFR is reported in mL/min/1.73 sq m. Blood specimen (specimen) Venipuncture / Unknown 06/28/2019 10:58 AM CDT 06/28/2019 10:58 AM CDT us Rachna Lyons PAC CHEMISTRY ORDERABLES Fin al Result [facility] [address] [place] [address] * (ABNORMAL) POCT GLYCOSYLATED HEMOGLOBIN (06/16/2019 1:00 PM CDT) HGB-A1C 13.5(A) 4 - 6 06/16/2019 1:00 PM CDT us Viki Ferguson APRN, ELECTRONIC PARTS SALESPERSON POINT OF CARE TESTIN G (MANUAL) Final Result from Last 3 Months or Most Recently Relevant to Health Maintenance Insurance MEDICARE MEDICARE C [employer]
--- OUTSIDE RECORDS SUMMARY | 2024-05-29 13:48 | XMS_ITS | Encounter Summary ---
Author Organization [facility] Address [address] [place] [address] Phone Care Team Providers Care Yarding Supervisor Name Role Phone Zion Thurman MD Primary Care Provider [phone] Reason for Visit * Reason Onset Date Comments Medication Refill 12/28/2020 Encounter Details Date Type Department Care Team (Late st Contact Info) Description 12/28/2020 Refill [facility] - Family Medicine [facility] [address] [place] [address] Zion Thurman MD [address] [place] [address] Medication Refill Social History Tobacco Use Types [...] on file Sexual Orientation Not on file COVID-19 Exposure Response Date Recorded In the last month, have you been in contact with someone who was confirmed or suspected to have Coronavirus / COVID-19? No / Unsure 12/01/2020 1:00 PM CDT documented as of this encounter Miscellaneous Notes * Telephone Encounter - Sheila Hernadez 12/29/2020 2:20 PM CDT Message was sent to patient via [employer]. * Telephone Encounter - Brit Go RN - 12/29/2020 11:04 AM CDT Patient needs an appointment with PCP * Telephone Encounter - Zion Thurman MD - 12/29/2020 10:00 AM CDT Need appointment * Telephone Encounter - Katharine Blas RN - 12/28/2020 3:40 PM CDT Medication failed the protocol, provider to review and approve the medication order if appropriate. Requested Prescriptions Pending Prescriptions Disp Refills Glucose Blood (OneTouch Ultra) Strip 100 Strip 3 Sig: USE TO TEST BLOOD SUGAR ONCE DAILY Diabetic Supplies Protocol Failed - 12/28/2020 3:40 PM Failed - Visit with relevant provider in past 6 months Recent Visits No visits were found meeting these conditions. Showing recent visits within past 182 days and meeting all other requirements Future Appointments No visits were found meeting these conditions. Showing future appointments within next 90 days and meeting all other requirements Lancets Misc 90 Lancet 11 Sig: Use as directed Diabetic Supplies Protocol Failed - 12/28/2020 3:40 PM Failed - Visit with relevant provider in past 6 months Recent Visits No visits were found meeting these conditions. Showing recent visits within past 182 days and meeting all other requirements Future Appointments No visits were found meeting these conditions. Showing future appointments within next 90 days and meeting all other requirements * Telephone Encounter - Lillian Quintana - 12/28/2020 12:14 PM CDT Received a faxed Rx request from [...] documented as of this encounter Care Teams Yarding Supervisor Relationship Specialty Start Date End Date Zion Thurman MD PCP - General Family Medicine 12/14/18 07/28/23 documented as of this encounter
--- OUTSIDE RECORDS SUMMARY | 2024-05-29 13:48 | XMS_ITS | Referral Summary ---
Author Organization [facility] Address [address] [place] [address] Care Team Providers Care Practice Support Specialist Name Role Phone Sara Rendon RN Unavailable [phone] Zion Thurman MD Primary Care Provider [phone] Source Comments [facility] Affiliates and Associated Physician Practices is amultiple site organization consisting of ambulatory clinics and hospital sitesin [place], [place], [place] and [place]. This disclosure is being madepursuant to the Care Everywhere program and may not contain all information available regarding this patient. Last updated 17.[facility] [employer] Allergies Active Allergy Reactions Criticality Noted Date [...] Mass Index 27.53 07/31/2020 8:30 AM CDT Functional Status Functional Status Response Date of Assess ment Is person deaf or have serious hearing difficult y? No 04/13/2014 Is person blind or have serious difficulty seein g? No 04/13/2014 Does person have serious dif ficulty walking/climbing stairs? No 04/13/2014 Does person have difficulty dressing/bathing? No 04/13/2014 Does person have difficulty doing errands alone? No 04/13/2014 Cognitive Status Response Date of Assessm ent Does person have difficulty concentrating/remembering/making decisions? No 04/13/2014 Plan of Treatment Not on file Goals Goal Patient Goal Type Associated Problems Recent Progress Patient-Stated? Author Mobility General No Natasha Mortensen RN Note: Expected end date: 04/06/21 The goal is to maintain or improve your mobility at the optimum level for you. Interventions: Medical Devices Implanted Type Area Rangeland Management Specialist Device Identifier Shelf Expiration Date Model / Serial / Lot Wax Bone Implanted:Qty: 1 on 04/13/2014 by Nikko Gunter DO at [facility] Right: Hip [employer] 01/05/2018 [id number] / / [id number] 3.5 Locking Screw Implanted:Qty: 1 on 04/13/2014 by Nikko Gunter DO at [facility] Right: Foot [id number] 6 / / 3.5 Non Locking Screw Implanted:Qty: 1 on 04/13/2014 by Nikko Gunter DO at [facility] Right: Foot [id number]-[id number] 7.5 / / Ortholink Standard Plate Implanted:Qty: 1 on 04/13/2014 by Nikko Gunter DO at [facility] THROUGH OPERATOR-002-PM / / 4.0 Non Locking Screw Implanted:Qty: 1 on 04/13/2014 by Nikko Gunter DO at [facility] Right: Foot [id number] 75 / / 3.5 Non Locking Screw Implanted:Qty: 1 on 04/13/2014 by Nikko Gunter DO at [facility] Right: Foot [id number] 0 / / Plate Implanted:Qty: 1 on 04/13/2014 by Nikko Gunter DO at [facility] Right: Foot EDL-001-00 / / 3.5 Locking Screw Implanted:Qty: 1 on 04/13/2014 by Nikko Gunter DO at [facility] Right: Foot [id number] 8 / / 3.5 Non Locking Screw Implanted:Qty: 1 on 04/13/2014 by Nikko Gunter DO at [facility] Right: Foot [id number] / / Plate Implanted:Qty: 1 on 04/13/2014 by Nikko Gunter DO at [facility] Right: Foot THROUGH OPERATOR-002-Y / / 3.5 Locking Screw Implanted:Qty: 1 on 04/13/2014 by Nikko Gunter DO at [facility] Right: Foot [id number] 0 / / 3.5 Non Locking Screw Implanted:Qty: 1 on 04/13/2014 by Nikko Gunter DO at [facility] Right: Foot [id number] 4 / / Explanted Type Area Rangeland Management Specialist Device Identifier Shelf Expiration Date Model / Serial / Lot 3.5 Locking Screw Explanted:Qty: 1 on 04/13/2014 at [facility] Right: Foot THROUGH OPERATOR-021-35- 325 / / 3.5 Locking Screw Implanted:Qty: 1 Explanted:Qty: 1 on 04/13/2014 at [facility] Right: Foot THROUGH OPERATOR-021-35- 22 / / Procedures Procedure Name Priority Date/Time Associated Diagnosis Comments GLUCOSE - POINT OF CARE Routine 08/24/2019 11:00 AM CDT from Last 3 Months or Most Recently Relevant to Health Maintenance Results * (ABNORMAL) GLUCOSE - POINT OF CARE (08/24/2019 11:00 AM CDT) [facility] Glucose WB/POC 159(H) 70 - 115 mg/dL 08/24/2019 11:04 AM CDT [facility] Specimen Type Venous 08/24/2019 11:04 AM CDT [facility] Blood BLOOD SPECIMEN / Unknown 08/24/2019 11:00 AM CDT 08/24/2019 11:04 AM CDT Nikko Gunter DO LAB - POINT OF CARE ORDERABLES [address] [address], [facility] [phone] from Last 3 Months or Most Recently Relevant to Health Maintenance Advance Directives * Full Code (Latest Code Status on File) Date Activated Date Inactivated Comments 04/13/2014 7:24 PM 04/15/2014 5:18 PM Care Teams Practice Support Specialist Relationship Specialty Start Date End Date Zion Thurman MD PCP - General Family Medicine 12/05/20 Sara Rendon, RN Geological Scout 04/14/14
--- OUTSIDE RECORDS SUMMARY | 2024-05-29 13:48 | XMS_ITS | Continuity of Care Document ---
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 Role Phone Todd Urban MD Unavailable Unavailable Allergies, Adverse Reactions, Alerts Substance Reaction Status Criticality codeine Active No Information tramadol Active No Information Medications Medication Instructions Dosage Effective Dates (start - stop) Status Comments [employer] 10 mg-325 mg tablet take 1 by Oral route 3 times every day 1 - Active avoid driving or operate machines, PRN for pain, Procedures Procedure Date OFFICE/OUTPATIENT VISIT, EST OFFICE/OUTPATIENT VISIT, EST Initial preventive exam OFFICE/OUTPATIENT VISIT, EST OFFICE/OUTPATIENT VISIT, EST PREV VISIT, EST, AGE 40-64 OFFICE/OUTPATIENT VISIT, EST OFFICE/OUTPATIENT VISIT, EST OFFICE/OUTPATIENT VISIT, EST OFFICE/OUTPATIENT VISIT, EST OFFICE/OUTPATIENT VISIT, EST OFFICE/OUTPATIENT VISIT, EST PREV VISIT, EST, AGE 40-64 OFFICE/OUTPATIENT VISIT, EST OFFICE/OUTPATIENT VISIT, EST OFFICE/OUTPATIENT VISIT, EST OFFICE/OUTPATIENT VISIT, EST OFFICE/OUTPATIENT VISIT, EST OFFICE/OUTPATIENT VISIT, EST OFFICE/OUTPATIENT VISIT, EST OFFICE/OUTPATIENT VISIT, EST OFFICE/OUTPATIENT VISIT, EST OFFICE/OUTPATIENT VISIT, EST OFFICE/OUTPATIENT VISIT, EST PREV VISIT, NEW, AGE 40-64 Advance Directives Directive Yes / No Effective Date File Name No Information Encounters Encounter Description Practice Location Reason(s) For Visit Diagnoses Date Provider Providers Copied on Encounter [facility], [address], [place], [place], [id number], [place] tel:[phone] [facility] No Information 8 Wilmar Brooks. [address], [place], [place], [address] , [place]. tel:[phone] OFFICE/OUTPA TIENT VISIT, EST [facility], [address], [place], [place], [address], [place] tel:[phone] [facility] hep c (chief complaint) glucose1 (chief complaint) thyroid1 (chief complaint) low mcv (chief complaint) cocaine1 (chief complaint) Hepatitis CHyperglycemiaHypot hyroidismOther abnormality of red blood cellsCocaine dependence, uncomplicated 8 Wilmar Brooks. [address], [place], [place], [address] , [place]. tel:[phone] Referring Provider: Todd Urban [address], [place], [place], [address]. tel:[phone] OFFICE/OUTPA TIENT VISIT, [facility], [address], [place], [place], [address], [place] tel:[phone] [facility] chronic pain (chief complaint) GERD1 (chief complaint) Chronic pain syndromeGERD w/o esophagitis 8 Wlimar Brooks. [address], [place], [place], [address] , [place]. tel:[phone] Referring Provider: Todd Urban [address], [place], [place], [address]. tel:[phone] OFFICE/OUTPA TIENT VISIT, [facility], [address], [place], [place], [address], [place] tel:[phone] [facility] Medicine PHysical (chief complaint) Encounter for general adult medical exam w abnormal findingsPolyp of colonGERD w/o esophagitisChronic pain syndrome Sep-0 8 Wilmar Brooks. [address], [place], [place], [address] , [place]. [phone] Referring Provider: Som Swift [address], [place], [place], [address]. tel:[phone] OFFICE/OUTPA TIENT VISIT, EST [facility], [address], [place], [place], [address], [place] [phone] [facility] chronic pain (chief complaint) GERD1 (chief complaint) hyperglyce mia1 (chief complaint) Chronic pain syndromeGERD without esophagitisHypergly cemia 6 Wilmar Pickard [address], [place], [place], [address] , [place]. tel:[phone] Referring Provider: Som Swift [address], [place], [place], [address]. tel:[phone] PREV VISIT, EST, AGE 40-64 [facility], [address], [place], [place], [address], [place] [phone] [facility] PHysical (chief complaint) Encounter for general adult medical exam w abnormal findingsGERD w/o esophagitisHypergly cemiaChronic pain syndrome 6 Wilmar Brooks. [address], [place], [place], [address] , [place]. [phone] Referring Provider: Som Swift [address], [place], [place], [address]. tel:[phone] OFFICE/OUTPA TIENT VISIT, EST [facility], [address], [place], [place], [address], [place] [phone] [facility] hyperglyce mia1 (chief complaint) vitamin D (chief complaint) chronic pain1 (chief complaint) GERD1 (chief complaint) HyperglycemiaChroni c pain syndromeVitamin D deficiency, unspecifiedGERD without esophagitis 6 Wilmar Brooks. [address], [place], [place], [address] , [place]. [phone] Referring Provider: Todd Urban, [address], [place], [place], [address]. tel:[phone] OFFICE/OUTPA TIENT VISIT, [facility], [address], [place], [place], [address], [place] [phone] [facility] foot pain1 (chief complaint) GERD1 (chief complaint) GERD without esophagitisPrimary osteoarthritis, right ankle and foot 5 Wilmar Brooks. [address], [place], [place], [address] , [place]. tel:[phone] Referring Provider: Som Swift [address], [place], [place], [address]. tel:[phone] OFFICE/OUTPA TIENT VISIT, [facility], [address], [place], [place], [address], [place] [phone] [facility] foot pain (chief complaint) Tobacco (chief complaint) HTN (chief complaint) GERD (chief complaint) Unspecified essential hypertensionOther and unspecified hyperlipidemiaPain in joint involving ankle and footEsophageal reflux 5 Wilmar Pickard [address], [place], [place], [address] , [place]. tel:[phone] Referring Provider: Som Swift [address], [place], [place], [address]. tel:[phone] OFFICE/OUTPA TIENT VISIT, [facility], [address], [place], [place], [address], [place] tel:[phone] [facility] foot pain (chief complaint) HLP (chief complaint) Pain in joint involving ankle and footOther and unspecified hyperlipidemia 5 Wilmar Brooks. [address], [place], [place], [address] , [place]. [phone] Referring Provider: Som Swift [address], [place], [place], [address]. tel:[phone] OFFICE/OUTPA TIENT VISIT, [facility], [address], [place], [place], [address], [place] tel:[phone] [facility] chronic pain (chief complaint) HTN (chief complaint) Pain in joint involving ankle and footHypertension, Unspecified 5 5 Wilmar Brooks. [address], [place], [place], [address] , [place]. [phone] Referring Provider: Som Swift [address], [place], [place], [address]. tel:[phone] PREV VISIT, EST, AGE 40-64 [facility], [address], [place], [place], [address], [place] tel:[phone] [facility] Medicine Physical (chief complaint) Routine Medical ExamRoutine Medical Exam 0- 5 Wilmar Brooks. [address], [place], [place], [address] , [place]. [phone] Referring Provider: Som Swift [address], [place], [place], [address]. tel:[phone] OFFICE/OUTPA TIENT VISIT, [facility], [address], [place], [place], [address], [place] tel:[phone] [facility] foot pain (chief complaint) HTN (chief complaint) Hypertension, UnspecifiedPain in joint involving ankle and footOpioid type dependence, unspecified use 5 Wilmar Brooks. [address], [place], [place], [address] , [place]. [phone] Referring Provider: Som Swift [address], [place], [place], [address]. tel:[phone] OFFICE/OUTPA TIENT VISIT, [facility], [address], [place], [place], [address], [place] tel:[phone] [facility] foot pain (chief complaint) tobacco (chief complaint) Tobacco AbusePain in joint involving ankle and foot 5 Wilmar Brooks. [address], [place], [place], [address] , [place]. [phone] Referring Provider: Som Swift [address], [place], [place], [address]. tel:[phone] OFFICE/OUTPA TIENT VISIT, [facility], [address], [place], [place], [address], [place] tel:[phone] [facility] foot pain (chief complaint) abd pain (chief complaint) GERDAbdominal PainPain in joint involving ankle and footTobacco Abuse 4 Wilmar Pickard [address], [place], [place], [address] , [place]. [phone] Referring Provider: Som Swift [address], [place], [place], [address]. tel:[phone] OFFICE/OUTPA TIENT VISIT, [facility], [address], [place], [place], [address], [place] tel:[phone] [facility] GERD (chief complaint) Abdominal PainHemorrhage of rectum and anusGERD 4 Wilmar Pickard [address], [place], [place], [address] , [place]. [phone] Referring Provider: Som Swift [address], [place], [place], [address]. tel:[phone] OFFICE/OUTPA TIENT VISIT, [facility], [address], [place], [place], [address], [place] tel:[phone] [facility] chornic ankle pain (chief complaint) Dietary surveillance and counselingPain in joint involving ankle and foot 0 4 Wilmar Pickard [address], [place], [place], [address] , [place]. tel:[phone] Referring Provider: Som Swift [address], [place], [place], [address]. tel:[phone] OFFICE/OUTPA TIENT VISIT, [facility], [address], [place], [place], [address], [place] [phone] [facility] ankle pain (chief complaint) HLP (chief complaint) Dietary surveillance and counselingPain in joint involving ankle and footOther and unspecified hyperlipidemia 4 Wilmar Brooks. [address], [place], [place], [address] , [place]. tel:[phone] Referring Provider: Som Swift [address], [place], [place], [address]. tel:[phone] OFFICE/OUTPA TIENT VISIT, [facility], [address], [place], [place], [address], [place] tel:[phone] [facility] ankle pain (chief complaint) Pain in joint involving ankle and foot 4 Wilmar Brooks. [address], [place], [place], [address] , [place]. [phone] Referring Provider: Som Swift [address], [place], [place], [address]. tel:[phone] OFFICE/OUTPA TIENT VISIT, [facility], [address], [place], [place], [address], [place] tel:[phone] [facility] ankle pain (chief complaint) HTN (chief complaint) chlamydia (chief complaint) Dietary surveillance and counselingPain in joint involving ankle and footHypertension, UnspecifiedHigh-ris k sexual behavior 4 Wilmar Brooks. [address], [place], [place], [address] , [place]. tel:[phone] Referring Provider: Som Swift [address], [place], [place], [address]. tel:[phone] OFFICE/OUTPA TIENT VISIT, [facility], [address], [place], [place], [address], [place] tel:[phone] [facility] ankle pain (chief complaint) Pain in joint involving ankle and foot 4 Wilmar Brooks. [address], [place], [place], [address] , [place]. tel:[phone] Referring Provider: Todd Urban, [address], [place], [place], [address]. tel:[phone] OFFICE/OUTPA TIENT VISIT, [facility], [address], [place], [place], [address], [place] tel:[phone] [facility] shoulder pain (chief complaint) ankle pain (chief complaint) TG (chief complaint) Pain in joint involving shoulder regionPain in joint involving ankle and footOther and unspecified hyperlipidemia 4 Wilmar Brooks. [address], [place], [place], [address] , [place]. tel:[phone] Referring Provider: Todd Urban, [address], [place], [place], [address]. tel:[phone] OFFICE/OUTPA TIENT VISIT, [facility], [address], [place], [place], [address], [place] tel:[phone] [facility] ankle pain (chief complaint) TG (chief complaint) vitamin D (chief complaint) Pain in joint involving ankle and footOther and unspecified hyperlipidemiaUnspe cified vitamin d deficiency 4 Wilmar Brooks. [address], [place], [place], [address] , [place]. tel:[phone] Referring Provider: Som Swift [address], [place], [place], [address]. tel:[phone] PREV VISIT, NEW, AGE 40-64 [facility], [address], [place], [place], [address], [place] tel:[phone] [facility] Medicine Physical (chief complaint) Routine Medical ExamDietary surveillance and counselingRoutine Medical Exam 4 Wilmar Brooks. [address], [place], [place], [address] , [place]. tel:[phone] Family History Family Member Type Diagnosis Age At Onset Brother Problem (finding) Alive and well Mother Problem (finding) Alive and well Father Problem (finding) Alive and well Payers Payer name Insurance type Covered republican ID Authoriza tion(s) No Information Social History Type Description Quantity Date Captured Comments Sex Male Smoking Status No Information Chief Complaint And Reason For Visit No Information Plan Of Treatment Date Type Action Status Goal Depression screening. Due on due Goal Sigmoidoscopy. Due on due Goal Td vaccine. Due on due Goal FOBT. Due on due Goal Lipid panel. Due on due Goal Tdap. Due on due Goal Influenza vaccine. Due on Oc due Goal Depression screening. Due on due Goal Influenza vaccine. Due on Oc due Goal Tdap. Due on due Goal Lipid panel. Due on due Goal FOBT. Due on due Goal Td vaccine. Due on due Goal Sigmoidoscopy. Due on due Goal Special diet education compl eted Goal Sigmoidoscopy. Due on due Goal Td vaccine. Due on due Goal FOBT. Due on due Goal Lipid panel. Due on due Goal Tdap. Due on due Goal Influenza vaccine. Due on due Goal Depression screening. Due on due Goal Special diet education compl eted Goal Depression screening. Due on due Goal Influenza vaccine. Due on due Goal Tdap. Due on due Goal FOBT. Due on due Goal Td vaccine. Due on 16 due Goal Sigmoidoscopy. Due on due Goal Sigmoidoscopy. Due on due Goal Influenza vaccine. Due on due Goal Tdap. Due on due Goal Td vaccine. Due on 16 due Goal FOBT. Due on due Goal Depression screening. Due on due Goal Tdap. Due on due Goal Influenza vaccine. Due on due Goal FOBT. Due on due Goal Td vaccine. Due on 16 due Goal Sigmoidoscopy. Due on due Goal Depression screening. Due on due Goal Sigmoidoscopy. Due on due Goal Influenza vaccine. Due on due Goal FOBT. Due on due Goal Depression screening. Due on due Goal Td vaccine. Due on 15 due Goal Tdap. Due on due Goal Depression screening. Due on due Goal FOBT. Due on due Goal Influenza vaccine. Due on due Goal Sigmoidoscopy. Due on due Goal Td vaccine. Due on 15 due Goal Tdap. Due on due Goal Tobacco cessation counseling completed Goal Tobacco cessation counseling completed Goal Tobacco cessation counseling completed Goal Tobacco cessation counseling completed Goal Tobacco cessation counseling completed Goal Tobacco cessation counseling completed Goal Tobacco cessation counseling completed Goal Tobacco cessation counseling completed Goal Tobacco cessation counseling completed Goal Tobacco cessation counseling completed Goal Tobacco cessation counseling completed Goal Tobacco cessation counseling completed Goal Tobacco cessation counseling completed Goal Tobacco cessation counseling completed Referral Ordered: Pain Medicine (related to Hyperglycemia) ordered Referral Ordered: Referrals: Pain Medicine. Evaluate and treat ordered Referral Ordered: Miguel Gunderson -[facility] : Internal Medicine : Gastroenterology (related to GERD w/o esophagitis) ordered Referral Referred To: Miguel Gunderson [address] [facility] [address] [place], [place] [id number] Ordered: Referrals: [facility]opathic Physicians : Internal Medicine : Gastroenterology. Miguel Gunderson. Evaluate and treat ordered Referral Ordered: US EXAM, ABDOM, COMPLETE ordered Referral Ordered: COLONOSCOPY AND BIOPSY ordered Referral Ordered: SHOULDER XRAY 2+ VIEWS Left ordered Referral Ordered: Referral: Ortho Surg. Evaluate and treat. ordered Referral Ordered: MRI LOWER EXTREMITY W/O DYE Right ankle ordered History Of Present Illness Encounter Date Complaint History Of Prese nt Illness cocaine1 Pt has cocaine i n his UDS Pt states that he does not use cocaine low mcv Pt has low MCV P t is not anemic Pt denies any bleeding. thyroid1 Pt has low thyro id. Pt denies any fatigue glucose1 Pt has mild high glucose Pt denies any polyuria, polydipsia hep c Pt has active he p C. Pt states that he used IV drug when he was back in highschool. GERD1 Pt has intermitt ent mild GERD Pt denies any worsening symptoms Pt does not want PPI Pt states that his symptoms is not bad now chronic pain Pt has chronic r ight foot and ankle pain Pt had multiple surgeries Pt has right foot numbness around the surgery site. pt takes norco PRn for pain Pt denies any worsening pain Pt failed neurontin in the past PHysical Pt needs annual physical. Pt has chronic right foot and ankle pain Pt has severe arthritis right ankle and foot and he had total of 4 surgeries of right foot. Pt states that he has severe right foot and ankle pain. Pt has been on opioid from ortho physician for the past several years Pt was told that he needs to come to PCP for pain meds by ortho.. Pt has colon polyp back in 2013 and he supposes to repeat colonoscopy next year Pt denies any gi bleeding Pt also has mild GERD sometimes but he does not think it is bad enough for take omeprazole. Pt does not take any heartburn meds now. hyperglycemia1 Pt has hyperglyc emia Pt denies any polyuria, polydipsia Pt still has not done lab yet GERD1 Pt has chronic G ERD. pt takes omeprazole and doing ok Pt denies any abd apin or any appetite loss chronic pain Pt has chronic r ight foot pain. Pt had surgery x 2 but he still c/o persistent pain. Pt states that he can barely walk when he is not wearing shoes. His ortho wants to do more surgery but he does not want to do anymore surgery now. pt denies any swelling PHysical Pt needs annual physical. Pt just had another foot surgery recently and now he has screws and plate in right foot and ankle. Pt states that he has not been feeling any better since the surgery. Pt still c/o right foot and ankle pain. Pt states that ortho proposed ankle fusion but he does not want to do it at this poitn. Pt still has constant pain right ankle and foot. Pt also has GERD. Pt takes omeprazole and doing ok. Pt denies any other complaints GERD1 Pt takes omerpzo le and doing ok with omeprazole. . Pt denies any abd pain or any nausea chronic pain1 Pt has chronic r ight foot pain. Pt will surgery tomororw at [facility] for bone spur vitamin D Pt has low vitam in D on lab hyperglycemia1 Pt has mild hype rglycemia. Pt denies any poluyuria, polydipsia GERD1 Pt has GERD. Pt has been taking omeparzole 40 mg daily Pt denies any GERD symptoms foot pain1 Pt has chronic r ight foot pain. Pt had foot fusion surgery recently. Pt has persistent right foot pain. Pt denies any swelling. Pt was told he has bone spur and he needs more surgery now but he is very unhappy about it. Pt does not want surgery again. Pt currently unable to work due to foot pain. Pt denies any worsening pain HTN Pt has mild HTN today. PT denies any chest pain or headache Tobacco Pt still smokes maybe 10 cig per day. Pt is trying to quit foot pain Location: foot. Additional information: Pt has chronic right foot pain. Pt had foot surgery but his pain level still persist. pt also has numbness right foot. pt was started by foot surgeon elsie TID but he has not noticed much improvement. GERD Associated sympt oms include heartburn. Pertinent negatives include blood in stool, constipation, diarrhea, dyspnea, fever, hematuria, rash, vomiting, weight gain and weight loss.Additional information:Pt is out of 40 mg omerpazole and is taking 20 mg and notices more GERD. No abd pain. Instructions Date Instruction Additional Infor gavino Increase physical activity Relat ed to Hepatitis C Special diet education Related t o Body mass index (BMI) 27.0-27.9, adult Quit smoking Related to Chron ic pain syndrome Special diet education Related t o Body mass index (BMI) 26.0-26.9, adult Quit smoking Related to Encou nter for general adult medical exam w abnormal findings Prescribed Activity and Exercise Education Related to Dietary Surveillance and Counseling Prescribed Diet Educ ation/Lifestyle Education Regarding Diet Related to Dietary Surveillance and Counseling Dietary counseling Related to Di etary surveillance counseling Decrease caloric intake Related to Dietary surveillance counseling Dietary counseling Related to Di etary surveillance counseling Decrease caloric intake Related to Dietary surveillance counseling Decrease caloric intake Related to Dietary surveillance counseling Dietary counseling Related to Di etary surveillance counseling Dietary counseling Related to Di etary surveillance counseling Decrease caloric intake Related to Dietary surveillance counseling Assessments Type Assessment Date No Information
--- OUTSIDE RECORDS SUMMARY | 2024-05-29 13:48 | XMS_ITS | Patient Health Summary ---
Author Organization [facility] Address [address] [place] [address] Care Team Providers Care Websphere Architect Name Role Phone Sara Rendon RN Unavailable [phone] Zion Thurman MD Primary Care Provider [phone] Note from [facility],non-owned Affiliates and Associated Physician Practices is amultiple site organization consisting of ambulatory clinics and hospital sitesin [place], [place], [place] and [place]. This disclosure is being madepursuant to the Care Everywhere program and may not contain all information available regarding this patient. Last updated 17.[facility] Allergies * Codeine(Other) -Medium Criticality * Tramadol(Itching) -Low Criticality Medications * Be aware that medications may not be up to date on this document. Alwaysverify current medications with the patient. * metFORMIN (GLUCOPHAGE) 1000 MG tablet Take 1,000 mg by mouth 2 times daily with morning and evening meal * blood glucose (ONETOUCH ULTRA) test strip(Started 12/05/2020) USE TO TEST BLOOD SUGAR ONCE DAILY Active Problems Problem Noted Date Diagnosed Date [...] Mass Index 27.53 07/31/2020 8:30 AM CDT Medical Devices Implanted Type Area Masonry Instructor Device Identifier Shelf Expiration Date Model / Serial / Lot Wax Bone Implanted:Qty: 1 on 04/13/2014 by Nikko Gunter DO at [facility] Right: Hip [employer] 01/05/2018 [id number] / / [id number] 3.5 Locking Screw Implanted:Qty: 1 on 04/13/2014 by Nikko Gunter DO at [facility] Right: Foot [id number] 6 / / 3.5 Non Locking Screw Implanted:Qty: 1 on 04/13/2014 by Nikko Gunter DO at [facility] Right: Foot [id number] 7.5 / / Ortholink Standard Plate Implanted:Qty: 1 on 04/13/2014 by Nikko Gunter DO at [facility]-002-PM / / 4.0 Non Locking Screw Implanted:Qty: 1 on 04/13/2014 by Nikko Gunter DO at [facility] Right: Foot [id number] 75 / / 3.5 Non Locking Screw Implanted:Qty: 1 on 04/13/2014 by Nikko Gunter DO at [facility] Right: Foot [id number] 0 / / Plate Implanted:Qty: 1 on 04/13/2014 by Nikko Gunter DO at [facility] Right: Foot EDL-001-00 / / 3.5 Locking Screw Implanted:Qty: 1 on 04/13/2014 by Nikko Gunter DO at [facility] Right: Foot QRQ-745-04-2 8 / / 3.5 Non Locking Screw Implanted:Qty: 1 on 04/13/2014 by Nikko Gunter DO at [facility] Right: Foot [id number] / / Plate Implanted:Qty: 1 on 04/13/2014 by Nikko Gunter DO at [facility] Right: Foot [employer]-002-Y / / 3.5 Locking Screw Implanted:Qty: 1 on 04/13/2014 by Nikko Gunter DO at [facility] Right: Foot [id number]-358-50-2 0 / / 3.5 Non Locking Screw Implanted:Qty: 1 on 04/13/2014 by Nikko Gnuter DO at [facility] Right: Foot [id number]-150-17-2 4 / / Explanted Type Area Masonry Instructor Device Identifier Shelf Expiration Date Model / Serial / Lot 3.5 Locking Screw Explanted:Qty: 1 on 04/13/2014 at [facility] Right: Foot [employer] SHEAR[employer]-021-35- 325 / / 3.5 Locking Screw Implanted:Qty: 1 Explanted:Qty: 1 on 04/13/2014 at [facility] Right: Foot [employer]AR[employer]-021-35- 22 / / Procedures * XR FOOT RIGHT 3VW OR MORE(Performed 09/27/2019) Performed for Painful orthopaedic hardware (HCC) * FL BENSON SURGERY(Performed 08/24/2019) Performed for Painful orthopaedic hardware (HCC) * EXCISION BONE SPUR (CALCANEAL/HEEL)(Performed 08/24/2019) Performed for Painful orthopaedic hardware (HCC), Bone spur of right foot * REMOVAL HARDWARE LOWER EXTREMITY(Performed 08/24/2019) Performed for Painful orthopaedic hardware (HCC), Bone spur of right foot * LARYNGEAL MASK AIRWAY(Performed 08/24/2019) * PERIPHERAL BLOCK(Performed 08/24/2019) * PERIPHERAL BLOCK(Performed 08/24/2019) * GLUCOSE - POINT OF CARE(Performed 08/24/2019) * XR FOOT RIGHT 3VW OR MORE(Performed 05/17/2019) Performed for Right foot pain * XR FOOT RIGHT 3VW OR MORE(Performed 02/15/2019) Performed for Right foot pain * XR FOOT RIGHT 3VW OR MORE(Performed 02/01/2019) Performed for Right foot pain * XR FOOT RIGHT 3VW OR MORE(Performed 11/14/2017) Performed for Right foot pain * XR FOOT RIGHT 3VW OR MORE(Performed 07/18/2017) Performed for Right foot pain * XR FOOT RIGHT 3VW OR MORE(Performed 06/13/2017) Performed for Pain * XR FOOT RIGHT 3VW OR MORE(Performed 05/23/2017) Performed for Right foot pain * XR ANKLE RIGHT 3VW OR MORE(Performed 05/02/2017) Performed for Right ankle pain, unspecified chronicity * XR FOOT RIGHT 3VW OR MORE(Performed 05/02/2017) Performed for Right foot pain * CBC W AUTO DIFFERENTIAL(Performed 04/17/2017) * BASIC METABOLIC PANEL (CALCIUM TOTAL)(Performed 04/17/2017) * CBC W AUTO DIFFERENTIAL(Performed 04/17/2017) * CBC W AUTO DIFFERENTIAL(Performed 04/16/2017) * BASIC METABOLIC PANEL (CALCIUM TOTAL)(Performed 04/16/2017) * CBC W AUTO DIFFERENTIAL(Performed 04/16/2017) * XR FOOT RIGHT 3VW OR MORE(Performed 04/15/2017) * FL BENSON SURGERY(Performed 04/15/2017) * TYPE + SCREEN PANEL(Performed 04/15/2017) * XR FOOT RIGHT 3VW OR MORE(Performed 02/07/2017) Performed for Right foot pain * XR FOOT RIGHT 3VW OR MORE(Performed 12/27/2016) Performed for Right ankle pain, unspecified chronicity * XR ANKLE RIGHT 3VW OR MORE(Performed 12/27/2016) Performed for Right ankle pain, unspecified chronicity * XR FOOT RIGHT 3VW OR MORE(Performed 10/30/2016) Performed for Right foot pain * XR FOOT RIGHT 3VW OR MORE(Performed 08/23/2016) Performed for Right foot pain * XR FOOT RIGHT 3VW OR MORE(Performed 07/05/2016) Performed for Right foot pain * XR FOOT RIGHT 3VW OR MORE(Performed 06/07/2016) Performed for Right foot pain * BASIC METABOLIC PANEL (CALCIUM TOTAL)(Performed 05/24/2016) * CBC W AUTO DIFFERENTIAL(Performed 05/24/2016) * CBC W AUTO DIFFERENTIAL(Performed 05/24/2016) * XR FOOT RIGHT 3VW OR MORE(Performed 05/23/2016) * FL BENSON SURGERY(Performed 05/23/2016) * TYPE + SCREEN PANEL(Performed 05/23/2016) * CBC W AUTO DIFFERENTIAL(Performed 05/23/2016) * BASIC METABOLIC PANEL (CALCIUM TOTAL)(Performed 05/23/2016) * PT-INR [facility](Performed 05/23/2016) * CBC W AUTO DIFFERENTIAL(Performed 05/23/2016) * XR FOOT RIGHT 3VW OR MORE(Performed 04/15/2016) * XR FOOT RIGHT 3VW OR MORE(Performed 03/04/2016) * CT FOOT RIGHT WO CONTRAST(Performed 12/25/2015) * CT ANKLE RIGHT WO CONTRAST(Performed 12/25/2015) * XR FOOT RIGHT 3VW OR MORE(Performed 12/18/2015) * XR FOOT RIGHT 3VW OR MORE(Performed 11/13/2015) * XR FOOT RIGHT 3VW OR MORE(Performed 10/02/2015) * XR FOOT RIGHT 3VW OR MORE(Performed 07/31/2015) * XR FOOT RIGHT 3VW OR MORE(Performed 06/26/2015) * XR FOOT RIGHT 3VW OR MORE(Performed 05/01/2015) * CBC W AUTO DIFFERENTIAL(Performed 04/20/2015) * CBC W AUTO DIFFERENTIAL(Performed 04/20/2015) * CBC W AUTO DIFFERENTIAL(Performed 04/19/2015) * CBC W AUTO DIFFERENTIAL(Performed 04/19/2015) * XR FOOT RIGHT 3VW OR MORE(Performed 04/18/2015) * FL BENSON SURGERY(Performed 04/18/2015) * CROSSMATCH RBC LEUKOREDUCED(Performed 04/18/2015) * TYPE + SCREEN PANEL(Performed 04/18/2015) * CBC W AUTO DIFFERENTIAL(Performed 04/18/2015) * CBC W AUTO DIFFERENTIAL(Performed 04/18/2015) * COMPREHENSIVE METABOLIC PANEL(Performed 04/18/2015) * XR FOOT RIGHT 3VW OR MORE(Performed 02/24/2015) Performed for Right foot pain * XR FOOT RIGHT 3VW OR MORE(Performed 12/02/2014) Performed for Right foot pain * XR ANKLE RIGHT 3VW OR MORE(Performed 09/09/2014) Performed for Pain in joint, ankle and foot, right * XR FOOT RIGHT 3VW OR MORE(Performed 06/24/2014) Performed for Pain in limb * XR FOOT RIGHT 3VW OR MORE(Performed 05/27/2014) Performed for Pain in limb * XR FOOT RIGHT 3VW OR MORE(Performed 04/29/2014) Performed for Pain in limb * CARDIAC RHYTHM STRIP ORDER(Performed 04/16/2014) * BASIC METABOLIC PANEL (CALCIUM TOTAL)(Performed 04/14/2014) * CBC W AUTO DIFFERENTIAL(Performed 04/14/2014) * XR FOOT RIGHT 3VW OR MORE(Performed 04/13/2014) Performed for Pes planus, right * XR FOOT RIGHT 2VW(Performed 04/13/2014) Performed for Calcaneus fracture, unspecified laterality, sequela * PERIPHERAL BLOCK(Performed 04/13/2014) * GASTROCNEMIUS RECESSION(Performed 04/13/2014) Performed for Other Acquired Deformity Of Ankle And Foot, Primary localized osteoarthrosis, ankle and foot * GRAFT BONE ILIAC(Performed 04/13/2014) Performed for Other Acquired Deformity Of Ankle And Foot, Primary localized osteoarthrosis, ankle and foot * OSTEOTOMY CALCANEUS(Performed 04/13/2014) Performed for Other Acquired Deformity Of Ankle And Foot, Primary localized osteoarthrosis, ankle and foot * ARTHRODESIS FOOT METATARSAL CUNEIFORM(Performed 04/13/2014) Performed for Other Acquired Deformity Of Ankle And Foot, Primary localized osteoarthrosis, ankle and foot * XR FOOT RIGHT 3VW OR MORE(Performed 03/18/2014) Performed for Pain in joint, ankle and foot, right * XR ANKLE RIGHT 3VW OR MORE(Performed 03/18/2014) Performed for Pain in joint, ankle and foot, right Results * XR FOOT RIGHT 3VW OR MORE (09/27/2019 11:40 AM CDT) Only the most recent of33 resultswithin the time period is included. Anatomical Region Laterality Modality Ankle / Foot Radiographic Parisa ging 09/27/2019 1:39 PM CDT Impressions 09/27/2019 1:42 PM CDT IMPRESSION: Interval removal of hardware. This report was electronically signed by GERSON ALBARRAN MD on 09/27/2019 1:42 PM . Narrative 09/27/2019 1:42 PM CDT Exam: XR FOOT RIGHT 3VW History: T84.84XA: Painful orthopaedic hardware Comparison: 05/17/2019. Findings: There has been interval removal of a medial plate from the talus/midfoot/first metatarsal base. Remnant screw fragments are seen. Again demonstrated is calcaneal osteotomy with a lateral plate and screws and subtalar arthrodesis with a screw, unchanged. There is bony fusion of several joints including subtalar, talonavicular, calcaneocuboid, and possibly cuneiform-cuboid. There is arthritis at the navicular-cuneiform joint and to a lesser degree a few other joints. No acute fracture is seen. Procedure Note Gerson Albarran MD - 09/27/2019 Exam: XR FOOT RIGHT 3VW History: T84.84XA: Painful orthopaedic hardware Comparison: 05/17/2019. Findings: There has been interval removal of a medial plate from the talus/midfoot/first metatarsal base. Remnant screw fragments are seen. Again demonstrated is calcaneal osteotomy with a lateral plate andscrews and subtalar arthrodesis with a screw, unchanged. There is bony fusionof several joints including subtalar, talonavicular, calcaneocuboid, and possibly cuneiform-cuboid. There is arthritis at the navicular-cuneiform joint and to a lesser degree a few other joints. No acute fracture is seen. IMPRESSION: Interval removal of hardware. This report was electronically signed by GERSON ALBARRAN MD on09/27/2019 1:42 PM . Nikko Gunter DO DIAGNOSTIC IMAGING O RDERABLES * FL BENSON SURGERY (08/24/2019 1:45 PM CDT) Only the most recent of4 resultswithin the time period is included. Narrative [facility] - 08/24/2019 1:46 PM CDT Fluoroscopy was used for this exam in the OR. Please see the Operative report. Nikko Gunter DO FLUOROSCOPY ORDERABL ES [facility] * LARYNGEAL MASK AIRWAY (08/24/2019 12:44 PM CDT) Narrative Debra Rodriguez MD - 08/24/2019 12:44 PM CDT Debra Rodriguez MD 08/24/2019 2:34 PM LMA Placement Procedure/LDA Note: Patient Location: OR. LMA Insertion Date/Time: 08/24/2019 12:33 PM Procedure: LMA. Pretreatment: 100% O2 Induction: standard IV Patient position: supine. Mask Ventilation: not attempted Type: LMA Size: 4 Placement verified by: bilateral breath sounds Procedure Start Time: 08/24/2019 12:33 PM. Staff Section Anesthesia Provider: Nahum Bojorquez APRN-SUPERVISOR DIALS, Performed the procedure Debra Rodriguez MD GENERAL ANESTHESIA O SMITA * Peripheral Nerve Block (08/24/2019 12:30 PM CDT) Narrative Isabela Fowler MD - 08/24/2019 12:30 PM CDT Isabela Fowler MD 08/24/2019 12:33 PM Peripheral Nerve Block Procedure: Peripheral Nerve Block Patient Location: PACU Preprocedure Section: Indications: at surgeon's request. Pre-anesthetic Checklist: Patient identified, IV Checked, Site examined and clear, Risks and benefits discussed, Surgical consent verified, Monitors and equipment, Time-out performed, Informed consent obtained, Pre-op evaluation done, Questions answered/anesthesia questions answered, Allergies reviewed and Removal hand/wrist jewelry Monitors: BP, Pulse Ox, EKG and ETCO2. Patient Condition: sedated, meaningful contact maintained throughout procedure Patient Position: supine Patient Sedated? Yes Sedation Type: moderate Procedure Section Laterality: right Block Performed: adductor canal Prep: Chloraprep Strerile Field: gloves, mask, hat/cap, patient draped and sterile ultrasound sleeve Skin localized with: lidocaine (XYLOCAINE) 1 % injection, 5 mL Needle Type: Echogenic insultaed Needle Gauge: 22 Needle Length: 100 mm Needle Depth: 5 cm Catheter? No Ultrasound Guided? Yes Technique: in plane Visualization: Preliminary scan performed, Important anatomical structures identified, Needle tip visualized throughout the procedure, Target identified, No intraneural or intravascular puncture occurred, Ultrasound image in chart, Local visualized surrounding nerve on ultrasound and Hydrodissection utilized Injection was made incrementally with constant monitoring and aspirations every 5 mL's Injection Assessment: Slow fractionated injection Block Agents or Additives used? Yes (precedex 12.5 mcg) Block agents used: ropivacaine (NAROPIN) 2 MG/ML (0.2%) injection, 20 mL dexamethasone (DECADRON) injection, 5 mg Procedure Tolerance: tolerated well Assessment: completed Procedure Start Time: 08/24/2019 12:19 PM. Procedure End Time: 08/24/2019 12:22 PM. Procedure Total Time: 3 minutes. Staff Section Anesthesia Provider: Scarlet Gaston MD, Performed the procedure Provider #1: Sky Pink DO. Provider #2: Isabela Fowler MD. Additional Comments: Procedure performed for postoperative pain relief after rt foot surgery. I was present and supervised throughout the procedure. Isabela Fowler MD . Isabela Fowler MD GENERAL ANESTHESIA O RDERABLES * Peripheral Nerve Block (08/24/2019 12:25 PM CDT) Narrative Isabela Fowler MD - 08/24/2019 12:25 PM CDT Isabela Fowler MD 08/24/2019 12:29 PM Peripheral Nerve Block Procedure: Peripheral Nerve Block Patient Location: PACU Preprocedure Section: Indications: at surgeon's request. Pre-anesthetic Checklist: Patient identified, IV Checked, Site examined and clear, Risks and benefits discussed, Surgical consent verified, Monitors and equipment, Time-out performed, Informed consent obtained, Pre-op evaluation done, Questions answered/anesthesia questions answered, Allergies reviewed and Removal hand/wrist jewelry Monitors: BP, Pulse Ox, EKG and ETCO2. Patient Condition: sedated, meaningful contact maintained throughout procedure Patient Position: supine Patient Sedated? Yes Sedation Type: moderate Sedation Agents: fentaNYL (PF) (SUBLIMAZE) injection, 50 mcg midazolam (VERSED) injection, 2 mg Procedure Section Laterality: right Block Performed: popliteal Prep: Chloraprep Strerile Field: gloves, mask, hat/cap, patient draped and sterile ultrasound sleeve Skin localized with: lidocaine (XYLOCAINE) 1 % injection, 4 mL Needle Type: Echogenic insultaed Needle Gauge: 22 Needle Length: 100 mm Needle Depth: 5 cm Catheter? No Ultrasound Guided? Yes Technique: in plane Visualization: Preliminary scan performed, Important anatomical structures identified, Needle tip visualized throughout the procedure, Target identified, No intraneural or intravascular puncture occurred, Ultrasound image in chart, Local visualized surrounding nerve on ultrasound and Hydrodissection utilized Injection was made incrementally with constant monitoring and aspirations every 5 mL's Injection Assessment: Slow fractionated injection Block Agents or Additives used? Yes (precedex 12.5) Block agents used: ropivacaine (NAROPIN) 2 MG/ML (0.2%) injection, 20 mL dexamethasone (DECADRON) injection, 5 mg Procedure Tolerance: tolerated well Assessment: completed Procedure Start Time: 08/24/2019 12:10 PM. Procedure End Time: 08/24/2019 12:18 PM. Procedure Total Time: 8 minutes. Staff Section Anesthesia Provider: Scarlet Gaston MD, Performed the procedure Provider #1: Sky Pink DO. Provider #2: Isabela Fowler MD. Additional Comments: Procedure performed for postoperative pain relief after rt foot surgery. I was present and supervised throughout the procedure. Isabela Fowler MD . Isabela Fowler MD GENERAL ANESTHESIA O RDERABLES * (ABNORMAL) GLUCOSE - POINT OF CARE (08/24/2019 11:00 AM CDT) Glucose WB/POC 159(H) 70 - 115 mg/dL 08/24/2019 11:04 AM T [facility] Specimen Type Venous 08/24/2019 11:04 AM [facility] Blood BLOOD SPECIMEN / Unknown 08/24/2019 11:00 AM CDT 08/24/2019 11:04 AM CDT Nikko Gunter LAB - POINT OF CARE ORDERABLES [address] [phone], [facility] [phone] * XR ANKLE 3+ VW RIGHT (05/02/2017 1:58 PM IT SUPPORT CONSULTANT) Only the most recent of4 resultswithin the time period is included. Anatomical Region Laterality Modality Lower Extremity Radiographic Parisa ging 05/02/2017 2:44 PM IT SUPPORT CONSULTANT Impressions 05/02/2017 2:47 PM IT SUPPORT CONSULTANT Interval posterior subtalar arthrodesis and mid foot fixation medially. Removal of the lateral midfoot plate and lateral osteotomy. Narrative 05/02/2017 2:47 PM IT SUPPORT CONSULTANT Examination: 1. Right ankle minimum 3 views 2. Right foot minimum 3 views History: Right foot and ankle pain Findings: 3 views of the right foot were performed with comparison made to 02/07/2017. There is progressive moderate right great toe metatarsophalangeal joint osteoarthritis. There has been interval removal of the lateral mid foot fixation plate. Screw fragments are again noted. There is a lateral midfoot osteotomy with adjacent heterotopic bone production. There is a new fixation plate extending from the talus to the midfoot and the first metatarsal base. There is slightly increased subluxation at the talonavicular joint. There is new posterior subtalar arthrodesis. 3 views of the right ankle demonstrate a new posterior subtalar arthrodesis. Lateral midfoot osteotomy is also noted. There is new medial mid foot fixation. The ankle joint space appears normal. Procedure Note Nathen Rob MD - 05/02/2017 Examination: 1. Right ankle minimum 3 views 2. Right foot minimum 3 views History: Right foot and ankle pain Findings: 3 views of the right foot were performed with comparison made to 02/07/2017. There is progressive moderate right great toe metatarsophalangeal joint osteoarthritis. There has been interval removal of the lateral mid foot fixation plate. Screw fragments are again noted. There is a lateral midfoot osteotomy with adjacent heterotopic bone production. There is a new fixation plate extending from the talus to the midfoot and the first metatarsal base. There is slightly increased subluxation at the talonavicular joint. There is new posterior subtalar arthrodesis. 3 views of the right ankle demonstrate a new posterior subtalar arthrodesis. Lateral midfoot osteotomy is also noted. There is new medial mid foot fixation. The ankle joint space appears normal. IMPRESSION Interval posterior subtalar arthrodesis and mid foot fixation medially. Removal of the lateral midfoot plate and lateral osteotomy. Nikko Gunter DO DIAGNOSTIC IMAGING O RDERABLES * (ABNORMAL) CBC W AUTO DIFFERENTIAL (04/17/2017 3:11 AM IT SUPPORT CONSULTANT) Only the most recent of15 resultswithin the time period is included. WBC 8.8 3.5 - 10.5 10 3/uL [facility] RBC 4.09(L) 4.30 - 5.70 10 6/uL [facility] Hemoglobin 10.5(L) 13.5 - 17.5 g/dL [facility] Hematocrit 32.8(L) 39.0 - 50.0 % [facility] MCV 80.2(L) 81.0 - 97.0 fL [facility] MCH 25.7(L) 28.0 - 34.0 pg [facility] MCHC 32.0 32.0 - 36.0 g/dL [facility] Platelet Count 188 150 - 400 10 3/uL [facility] RDW-SD 42.0 36.0 - 50.0 fL [facility] RDW-CV 14.5 11.2 - 14.8 % [facility] MPV 8.8(L) 9.3 - 12.8 fL [facility] Neutrophils % 55.3 35.0 - 70.0 % [facility] Lymphocytes % 32.9 19.7 - 55.1 % [facility] Monocytes % 10.6 3.0 - 15.0 % [facility] Eosinophils % 1.1 0.0 - 6.0 % [facility] Basophil % 0.1 0.0 - 1.5 % [facility] Neutrophils Absolute 4.9 1.6 - 7.0 10 3/uL [facility] Lymphocyte Absolute 2.9 0.8 - 2.9 10 3/uL [facility] Monocytes Absolute 0.94(H) 0.14 - 0.66 10 3/uL [facility] Eosinophils Absolute 0.10 0.00 - 0.22 10 3/uL [facility] Basophils Absolute 0.01 0.00 - 0.06 10 3/uL [facility] Immature Granulocytes % 0.1 0.0 - 1.0 % [facility] Blood specimen (specimen) BLOOD SPECIMEN / Unknown 04/17/2017 3:11 AM IT SUPPORT CONSULTANT 04/17/2017 3:14 AM IT SUPPORT CONSULTANT Nikko Gunter DO LAB - HEMATOLOGY ORD ERABLES [address] [phone] * (ABNORMAL) BASIC METABOLIC PANEL (CALCIUM TOTAL) (04/17/2017 3:11 AM IT SUPPORT CONSULTANT) Only the most recent of5 resultswithin the time period is included. BUN 7 7 - 26 mg/dL [facility] Creatinine 0.6 0.6 - 1.2 mg/dL [facility] Sodium 138 136 - 145 mmol/L [facility] Potassium 4.2 3.5 - 4.5 mmol/L [facility] Chloride 103 98 - 107 mmol/L [facility] CO2 27 22 - 29 mmol/L [facility] Glucose 121(H) 70 - 115 mg/dL [facility] Calcium 8.8 8.4 - 10.2 mg/dL [facility] Anion Gap 12 8 - 18 [facility] BUN/Creatinine Ratio 12 7 - 23 [facility] Osmolality Calculated 285 270 - 300 mOsm/kg [facility] eGFR >60 >60 mL/min/1.7 3 m2 [facility] Blood specimen (specimen) BLOOD SPECIMEN / Unknown 04/17/2017 3:11 AM IT SUPPORT CONSULTANT 04/17/2017 3:14 AM IT SUPPORT CONSULTANT Nikko Gunter DO LAB - CHEMISTRY ORDE [place] [address] [phone] * TYPE + SCREEN PANEL (04/15/2017 5:58 AM IT SUPPORT CONSULTANT) Only the most recent of3 resultswithin the time period is included. Typem B POS [facility] Antibody Screen NEG [facility] Blood specimen (specimen) 04/15/2017 5:58 AM IT SUPPORT CONSULTANT 04/15/2017 6:02 AM IT SUPPORT CONSULTANT Nikko Gunter DO LAB - BLOOD BANK ORD ERABLES Performing Organization Address [facility] Co de Phone Number [facility] [address] * PT-INR U (05/23/2016 6:59 AM IT SUPPORT CONSULTANT) PT 12.9 12.1 - 14.8 Seconds [facility] INR 1.0 See Comment [facility] Comment: Suggested therapeutic range for low-intensity coumadin therapy for venous thromboembolism prophylaxis is an INR of 2.0-3.0. For high risk patients (Mitral Valve Prosthesis, Atrial Fibrillation, history of TIA/stroke), suggested prophylactic therapeutic range is an INR of 2.5-3.5. Blood specimen (specimen) BLOOD SPECIMEN / Unknown 05/23/2016 6:59 AM IT SUPPORT CONSULTANT 05/23/2016 7:00 AM IT SUPPORT CONSULTANT Narrative [facility] - 05/23/2016 7:16 AM IT SUPPORT CONSULTANT Is patient on Heparin, Argatroban or Dabigatran?->N Nikko Gunter DO LAB - COAGULATION OR DERABLES Performing Organization Address [facility]/ZIP Co de Phone Number [address] [phone] * CT ANKLE RIGHT WO CONTRAST (12/25/2015 8:14 AM CDT) Anatomical Region Laterality Modality Lower Extremity Other Impressions 12/25/2015 4:03 PM CDT IMPRESSION: 1. Nonunion of the calcaneocuboid joint. 2. Fusion of the calcaneal osteotomy and first tarsometatarsal arthrodesis sites. Dictated by Eric Damico MD (vice president quality improvement). I, Dr. LINNETTE DECKER M.D. have personally reviewed and interpreted this examination/study. This report was electronically signed by LINNETTE DECKER M.D. on 12/25/2015 4:03 PM . Narrative 12/25/2015 4:03 PM CDT EXAMINATION: 1. Computed tomography (CT) of the right ankle without contrast 2. CT of the right foot without contrast HISTORY: Right foot and ankle pain, history of flat foot reconstruction TECHNIQUE: CT of the right ankle and right foot was performed without contrast according to standard protocol. COMPARISON: Comparison is made with right foot radiographs from 12/18/2015. FINDINGS: Right ankle: Postsurgical changes of calcaneal osteotomy, calcaneal cuboid arthrodesis, and first tarsometatarsal arthrodesis with plates and screws are seen. There is no evidence of instrumentation failure. There is bony fusion at the calcaneal osteotomy and first tarsometatarsal arthrodesis site. 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 Mild degenerative changes are seen at the subtalar joint and midfoot. The navicular bone remains irregular in contour with a small dorsal enthesophyte. No acute fracture or dislocation is identified. The soft tissues and musculature appear normal. No joint effusion is present. Hammertoe deformities are noted. Diffuse osteopenia is noted. A moderate plantar calcaneal enthesophyte is noted. Right foot: Postsurgical changes of calcaneal osteotomy, calcaneocuboid arthrodesis, and first tarsometatarsal arthrodesis with plates and screws are seen. There is no evidence of instrumentation failure. There is bony fusion at the calcaneal osteotomy and first tarsometatarsal arthrodesis sites. 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 Mild degenerative changes are seen at the subtalar joint and midfoot. The navicular bone remains irregular in contour with a small dorsal enthesophyte. No acute fracture or dislocation is identified. The soft tissues and musculature appear normal. Hammertoe deformities are noted. Diffuse osteopenia is noted. A moderate plantar calcaneal enthesophyte is noted. Procedure Note Linnette Decker MD - 07/05/2017 EXAMINATION: 1. Computed tomography (CT) of the right ankle without contrast 2. CT of the right foot without contrast HISTORY: Right foot and ankle pain, history of flat foot reconstruction TECHNIQUE: CT of the right ankle and right foot was performed withoutcontrast according to standard protocol. COMPARISON: Comparison is made with right foot radiographs from12/18/2015. FINDINGS: Right ankle: Postsurgical changes of calcaneal osteotomy, calcaneal cuboid arthrodesis,and first tarsometatarsal arthrodesis with plates and screws are seen.There is no evidence of instrumentation failure. There is bony fusion atthe calcaneal osteotomy and first tarsometatarsal arthrodesis site. There is nonunion of the calcaneocuboidjoint. Mild degenerative changes are seen at the subtalar joint andmidfoot. The navicular bone remains irregular in contour with a smalldorsal enthesophyte. No acute fracture or dislocation is identified. The soft tissues and musculature appearnormal. No joint effusion is present. Hammertoe deformities are noted.Diffuse osteopenia is noted. A moderate plantar calcaneal enthesophyte isnoted. Right foot: Postsurgical changes of calcaneal osteotomy, calcaneocuboid arthrodesis,and first tarsometatarsal arthrodesis with plates and screws are seen.There is no evidence of instrumentation failure. There is bony fusion atthe calcaneal osteotomy and first tarsometatarsal arthrodesis sites. There is nonunion of the calcaneocuboidjoint. Mild degenerative changes are seen at the subtalar joint andmidfoot. The navicular bone remains irregular in contour with a smalldorsal enthesophyte. No acute fracture or dislocation is identified. The soft tissues and musculature appearnormal. Hammertoe deformities are noted. Diffuse osteopenia is noted. Amoderate plantar calcaneal enthesophyte is noted. IMPRESSION IMPRESSION: 1. Nonunion of the calcaneocuboid joint. 2. Fusion of the calcaneal osteotomy and first tarsometatarsal arthrodesissites. Dictated by Eric Damico MD (vice president quality improvement). IDr. LINNETTE M.D. have personally reviewed and interpreted thisexamination/study. This report was electronically signed by LINNETTE DECKER M.D. on 12/25/20154:03 PM . Thomas Burks PA-C CT ORDERABLES * CT FOOT RIGHT WO CONTRAST (12/25/2015 8:14 AM CDT) Anatomical Region Laterality Modality Other Impressions 12/25/2015 4:03 PM CDT IMPRESSION: 1. Nonunion of the calcaneocuboid joint. 2. Fusion of the calcaneal osteotomy and first tarsometatarsal arthrodesis sites. Dictated by Eric Damico MD (vice president quality improvement). I, Dr. LINNETTE DECKER M.D. have personally reviewed and interpreted this examination/study. This report was electronically signed by LINNETTE DECKER M.D. on 12/25/2015 4:03 PM . Narrative 12/25/2015 4:03 PM CDT EXAMINATION: 1. Computed tomography (CT) of the right ankle without contrast 2. CT of the right foot without contrast HISTORY: Right foot and ankle pain, history of flat foot reconstruction TECHNIQUE: CT of the right ankle and right foot was performed without contrast according to standard protocol. COMPARISON: Comparison is made with right foot radiographs from 12/18/2015. FINDINGS: Right ankle: Postsurgical changes of calcaneal osteotomy, calcaneal cuboid arthrodesis, and first tarsometatarsal arthrodesis with plates and screws are seen. There is no evidence of instrumentation failure. There is bony fusion at the calcaneal osteotomy and first tarsometatarsal arthrodesis site. 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 Mild degenerative changes are seen at the subtalar joint and midfoot. The navicular bone remains irregular in contour with a small dorsal enthesophyte. No acute fracture or dislocation is identified. The soft tissues and musculature appear normal. No joint effusion is present. Hammertoe deformities are noted. Diffuse osteopenia is noted. A moderate plantar calcaneal enthesophyte is noted. Right foot: Postsurgical changes of calcaneal osteotomy, calcaneocuboid arthrodesis, and first tarsometatarsal arthrodesis with plates and screws are seen. There is no evidence of instrumentation failure. There is bony fusion at the calcaneal osteotomy and first tarsometatarsal arthrodesis sites. 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 Mild degenerative changes are seen at the subtalar joint and midfoot. The navicular bone remains irregular in contour with a small dorsal enthesophyte. No acute fracture or dislocation is identified. The soft tissues and musculature appear normal. Hammertoe deformities are noted. Diffuse osteopenia is noted. A moderate plantar calcaneal enthesophyte is noted. Procedure Note Linnette Decker MD - 07/05/2017 EXAMINATION: 1. Computed tomography (CT) of the right ankle without contrast 2. CT of the right foot without contrast HISTORY: Right foot and ankle pain, history of flat foot reconstruction TECHNIQUE: CT of the right ankle and right foot was performed withoutcontrast according to standard protocol. COMPARISON: Comparison is made with right foot radiographs from12/18/2015. FINDINGS: Right ankle: Postsurgical changes of calcaneal osteotomy, calcaneal cuboid arthrodesis,and first tarsometatarsal arthrodesis with plates and screws are seen.There is no evidence of instrumentation failure. There is bony fusion atthe calcaneal osteotomy and first tarsometatarsal arthrodesis site. There is nonunion of the calcaneocuboidjoint. Mild degenerative changes are seen at the subtalar joint andmidfoot. The navicular bone remains irregular in contour with a smalldorsal enthesophyte. No acute fracture or dislocation is identified. The soft tissues and musculature appearnormal. No joint effusion is present. Hammertoe deformities are noted.Diffuse osteopenia is noted. A moderate plantar calcaneal enthesophyte isnoted. Right foot: Postsurgical changes of calcaneal osteotomy, calcaneocuboid arthrodesis,and first tarsometatarsal arthrodesis with plates and screws are seen.There is no evidence of instrumentation failure. There is bony fusion atthe calcaneal osteotomy and first tarsometatarsal arthrodesis sites. There is nonunion of the calcaneocuboidjoint. Mild degenerative changes are seen at the subtalar joint andmidfoot. The navicular bone remains irregular in contour with a smalldorsal enthesophyte. No acute fracture or dislocation is identified. The soft tissues and musculature appearnormal. Hammertoe deformities are noted. Diffuse osteopenia is noted. Amoderate plantar calcaneal enthesophyte is noted. IMPRESSION IMPRESSION: 1. Nonunion of the calcaneocuboid joint. 2. Fusion of the calcaneal osteotomy and first tarsometatarsal arthrodesissites. Dictated by Eric Damico MD (vice president quality improvement). I, Dr. LINNETTE DECKER M.D. have personally reviewed and interpreted thisexamination/study. This report was electronically signed by LINNETTE DECKER M.D. on 12/25/20154:03 PM . Thomas Burks PA-C CT ORDERABLES * CROSSMATCH RBC LEUKOREDUCED (04/18/2015 7:38 AM IT SUPPORT CONSULTANT) 04/18/2015 7:38 AM IT SUPPORT CONSULTANT 04/18/2015 7:38 AM IT SUPPORT CONSULTANT Narrative [facility] - 04/18/2015 7:38 AM IT SUPPORT CONSULTANT # of Units->2 Nikko Gunter DO LAB - BLOOD BANK ORD ERABLES [facility] [address] * (ABNORMAL) COMPREHENSIVE METABOLIC PANEL (04/18/2015 7:00 AM IT SUPPORT CONSULTANT) BUN 12 7 - 26 mg/dL [facility] Creatinine 0.9 0.6 - 1.2 mg/dL [facility] Sodium 139 136 - 145 mmol/L [facility] Potassium 4.1 3.5 - 4.5 mmol/L [facility] Chloride 105 98 - 107 mmol/L [facility] CO2 25 22 - 29 mmol/L [facility] Glucose 106 70 - 115 mg/dL [facility] Calcium 9.5 8.4 - 10.2 mg/dL [facility] Protein Total 8.0 6.0 - 8.3 g/dL [facility] Albumin 4.0 3.4 - 5.0 g/dL [facility] Bilirubin Total 0.4 0.2 - 1.2 mg/dL [facility] Alkaline Phosphatase 79 40 - 150 Units/L [facility] ALT 39 0 - 55 Units/L [facility] AST 30 5 - 34 Units/L [facility] Anion Gap 13 8 - 18 [facility] BUN/Creatinine Ratio 13 7 - 23 [facility] Osmolality Calculated 274 270 - 300 mOsm/kg [facility] Albumin/Globulin Ratio 1.0(L) 1.1 - 2.3 [facility] eGFR >60 >60 mL/min/1.7 3 m2 [facility] Blood specimen (specimen) BLOOD SPECIMEN / Unknown 04/18/2015 7:00 AM IT SUPPORT CONSULTANT 04/18/2015 7:14 AM IT SUPPORT CONSULTANT Nikko Gunter DO LAB - CHEMISTRY ORDE RABLES Performing Organization Address City/[facility]/ZIP Co de Phone Number [facility] [address] [phone] * CARDIAC RHYTHM STRIP ORDER (04/16/2014 10:14 PM IT SUPPORT CONSULTANT) Narrative 04/16/2014 10:14 PM IT SUPPORT CONSULTANT Ordered by an unspecified provider. Scanned Document CARDIAC SERVICES ORD ERABLES * XR FOOT 2 VW RIGHT (04/13/2014 4:44 PM IT SUPPORT CONSULTANT) Narrative [facility] - 04/14/2014 12:02 PM IT SUPPORT CONSULTANT No Dictation. Nikko Gunter DO DIAGNOSTIC IMAGING O RDERABLES Performing Organization Address City/[facility]/ZIP Co de Phone Number [facility] [address] [place] [address] * PERIPHERAL BLCOK (04/13/2014 12:13 PM IT SUPPORT CONSULTANT) Narrative Benjamín Burciaga MD - 04/13/2014 12:13 PM IT SUPPORT CONSULTANT Benjamín Burciaga MD 04/13/2014 12:13 PM Peripheral Block Patient Location: holding area Pre Procedure Indication: at patient's request, at surgeon's request and post-operative analgesia Preanesthetic Checklist: patient identified, IV checked, site marked, risks and benefits discussed, surgical consent verified, monitors and equipment checked, pre-op evaluation done, timeout performed, informed consent obtained and questions answered / anesthesia plan accepted Monitors: EKG, Pulse Ox and BP Patient Condition: sedated, meaningful contact maintained Patient Position: prone Procedure Laterality: right Block Performed: popliteal Prep: Chloraprep Sterile Field: sterile field established and sterile gloves Skin Numbed with: lidocaine 1% Needle Type: nerve stimulator, echogenic, insulated and short-bevel Needle Gauge: 22 Needle Length: 80mm Nerve Stimulator plantar flexion Loss of Stimulation at 0.4 mA Ultrasound guided Technique: out of plane Visualization: target ID'd and good spread of local around target Block Agent: ropivacaine 0.5% 40 mL Epinephrine in Block Agent: none Events blood not aspirated injection not painful no injection resistance no paresthesia no other events Block Start Time: 04/13/2014 11:49 AM Block End Time: 04/13/2014 11:56 AM Block Performed by: Gualberto SANTANA Performed as outlined above. No apparent complications and well tolerated by patient. Benjamín Burciaga MD GENERAL ANESTHESIA [facility] Teams Websphere Architect Relationship Specialty Start Date End Date Zion Thurman MD PCP - General Family Medicine 12/05/20 Sara Rendon, RN Correctional Corporal 04/14/14
[2024-05-29 14:13] LABS: Hematocrit 41.6 % (42.0-52.0); Mean Corpuscular HGB Conc 31.3 g/dl (32-36); Mean Corpuscular Hemoglobin 25.1 pg (26-34); Mean Corpuscular Volume 80.3 fl (80-100); Mean Platelet Volume 8.8 fl (7.4-10.4); Platelet Count Result 224 k/mm3 (150-375); Red Blood Count 5.18 M/mm3 (4.6-6.20); Red Cell Distribution Width 14.5 % (11.5-14.5)
[2024-05-29 14:23] LABS: Hemoglobin A1C 7.8 % (<5.7)
[2024-05-29 14:29] LABS: Alanine Aminotransferase 22 U/L (6-50); Albumin Level 4.3 g/dL (3.5-5.1); Alkaline Phosphatase 100 U/L (38-126); Anion Gap 10 mmol/L (4-12); Aspartate Amino Transferase 28 U/L (17-59); Bilirubin,Total 0.4 mg/dL (0.2-1.3); Blood Urea Nitrogen 15 mg/dL (9-20); Calcium 9.2 mg/dL (8.4-10.2); Carbon Dioxide 29 mmol/L (22-30); Chloride 99 mmol/L (98-107); Cholesterol 135 mg/dL (0-200); Estimated Glomerular Filt Rate > 60; Glucose 172 mg/dL (65-110); HDL Direct 43 mg/dL; Potassium 4.6 mmol/L (3.4-5.0); Sodium 138 mmol/L (137-145); Triglycerides 136 mg/dL (<150)
[2024-05-29 14:35] LABS: Band Neutrophils Percent 0 % (0-6); Eosinophils Absolute Manual 0.09 K/mm3 (0.02-0.50); Eosinophils Percent Manual 1 % (0-4); Lymphocytes Absolute Manual 4.59 K/mm3 (1.1-4.5); Lymphocytes Percent Manual 51 % (18-44); Monocytes Absolute Manual 0.54 K/mm3 (0.1-0.90); Monocytes Percent Manual 6 % (3-9); Neutrophils Absolute Manual 3.78 K/mm3 (1.3-6.7); Neutrophils Percent Manual 42 % (46-73); Total Cells Counted 100
[2024-05-29 14:36] LABS: Platelet Estimate Adequate (Adequate); Schistocytes None Seen; Smudge Cells FEW
[2024-05-29 14:37] LABS: Creatinine Urine 105.8 mg/dL
[2024-05-29 14:40] LABS: LDL Cholesterol Direct 66 mg/dL
[2024-05-29 14:42] LABS: MALB Creatinine Ratio 45.3 mg/g (0-30); Microalbumin Urine Random 47.9 mg/L (0-16.7)
[2024-05-29 15:00] LABS: Prostate Specific Antigen 2.7 ng/mL (< OR = 4.0)
== END 2024-05-29 13:46 | disposition home or self-care (01) ==
PROVIDERS: PCP Internal Medicine; Visit Provider Nurse Practitioner
DX: R97.20 Elevated prostate specific antigen [PSA] (principal); Z12.5 Encounter for screening for malignant neoplasm of prostate; E11.9 Type 2 diabetes mellitus without complications
CPT/HCPCS: 36415; 80053; 80061; 82043; 83036; 84153; 85025

== ENCOUNTER 2024-10-12 07:23 | Outpatient (CLI) | payer MEDICARE, MEDICAID, SELFPAY ==
--- OUTSIDE RECORDS SUMMARY | 2024-10-12 07:27 | XMS_ITS | Encounter Summary ---
Author Organization [facility] Address [address] [place] [address] Phone Care Team Providers Care Hosiery Looper Name Role Phone Zion Thurman MD Primary Care Provider [phone] Reason for Visit * Reason Onset Date Comments Medication Refill 12/28/2020 Encounter Details Date Type Department Care Team (Late st Contact Info) Description 12/28/2020 Refill [facility] - Family Medicine [facility] [address] [place] [address] Zion Thurman MD [address] [place] [address] Medication Refill Social History Tobacco Use Types [...] CDT Message was sent to patient via [employer]. * Telephone Encounter - Brit Go RN [...] documented as of this encounter Care Teams Hosiery Looper Relationship Specialty Start Date End Date Zion Thurman MD PCP - General Family Medicine 12/14/18 07/28/23 documented as of this encounter
--- OUTSIDE RECORDS SUMMARY | 2024-10-12 07:27 | XMS_ITS | Clinical Summary ---
Author Organization [facility] Address [address] [place] [address] Care Team Providers Care Water Treatment Plant Repairer Name Role Phone Sara Rendon RN Unavailable [phone] Zion Thurman MD Primary Care Provider [phone] Source Comments [facility],non-owned Affiliates and Associated Physician Practices is amultiple site organization consisting of ambulatory clinics and hospital sitesin [place], [place], [place] and [place]. This disclosure is being madepursuant to the Care Everywhere program and may not contain all information available regarding this patient. Last updated 17.[facility] [employer] Allergies Active Allergy Reactions Criticality Noted Date Comments Codeine Other Medium 04/13/2014 Rash Rash Tramadol Itching Low 04/13/2014 Not sure Not sure Medications * Be aware that medications may not be up to date on this document. Alwaysverify current medications with the patient. 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 Gender Identity Not on file Sexual Orientation [...] FLEX SIG - COLON CA SCREENING 1965 Opioid Medication Agreement - Annual 1965 DTAP/TDAP/TD VACCINES (1 - Tdap) 10/05/1983 HEPATITIS B VACCINE (1 of 3 - 19+ 3-dose series) 10/05/1983 PNEUMOCOCCAL VACCINE 50+ (1 of 2 - PCV) 10/05/1983 ZOSTER VACCINE (1 of 2) 2014 SCREENING FOR DIABETES 09/22/2022 , 08/24/2019, 06/28/2019, Additional history exists COVID-19 VACCINE ( - season) 2023 DEPRESSION SCREENING 04/07/2024 MEDICARE AWV CALENDAR YEAR 2024 LIPID TESTING 06/27/2024 06/28/2019 INFLUENZA VACCINE (Season Ended) 2024 HEPATITIS C SCREENING Completed 09/23/2019 , 09/23/2019, 09/23/2019, Additional history exists HIV SCREENING Completed 09/23/2019 HIB VACCINE Aged Out No longer eligi ble based on patient's age to complete this topic HPV VACCINE Aged Out No longer eligi ble based on patient's age to complete this topic MENINGOCOCCAL (Group B) VACCINE SHARED DECISION-MAKING Aged Out No longer eligible based on patient's age to complete this topic MENINGOCOCCAL GROUPS A/C/Y/W VACCINE Aged Out No longer eligible based on patient's age to complete this topic Goals Goal Patient Goal Type Associated Problems Recent Progress Patient-Stated? Author Mobility General No Natasha Mortensen RN Note: Expected end date: 04/06/21 The goal is to maintain or improve your mobility at the optimum level for you. Interventions: Medical Devices Implanted Type Area Vice President Of Advertising Device Identifier Shelf Expiration Date Model / Serial / Lot Wax Bone Implanted:Qty: 1 on 04/13/2014 by Nikko Gunter DO at [facility] Right: Hip [employer] 01/05/2018 [id number] / / [id number] 3.5 Locking Screw Implanted:Qty: 1 on 04/13/2014 by Nikko Gunter DO at [facility] Right: Foot [id number] 6 / / 3.5 Non Locking Screw Implanted:Qty: 1 on 04/13/2014 by Nikko Gunter DO at [facility] Right: Foot [id number] 7.5 / / Ortholink Standard Plate Implanted:Qty: 1 [facility] / / 4.0 Non Locking Screw Implanted:Qty: 1 on 04/13/2014 by Nikko Gunter DO at [facility] Right: Foot [id number] 75 / / 3.5 Non Locking Screw Implanted:Qty: 1 on 04/13/2014 by Nikko Gunter DO at [facility] Right: Foot [id number] 0 / / Plate Implanted:Qty: 1 on 04/13/2014 by Nikko Gunter DO at [facility] Right: Foot [id number]-001-00 / / 3.5 Locking Screw Implanted:Qty: 1 on 04/13/2014 by Nikko Gunter DO at [facility] Right: Foot [id number]-[id number] 8 / / 3.5 Non Locking Screw Implanted:Qty: 1 on 04/13/2014 by Nikko Gunter DO at [facility] Right: Foot [id number] / / Plate Implanted:Qty: 1 on 04/13/2014 by Nikko Gunter DO at [facility] Right: Foot PHP MYSQL WEB DEVELOPER-002-Y / / 3.5 Locking Screw Implanted:Qty: 1 on 04/13/2014 by Nikko Gunter DO at [facility] Right: Foot [id number] 0 / / 3.5 Non Locking Screw Implanted:Qty: 1 on 04/13/2014 by Nikko Gunter DO at [facility] Right: Foot [id number] 4 / / Explanted Type Area Vice President Of Advertising Device Identifier Shelf Expiration Date Model / Serial / Lot 3.5 Locking Screw Explanted:Qty: 1 on 04/13/2014 at [facility] Right: Foot PHP MYSQL WEB [id number]-[id number] / / 3.5 Locking Screw Implanted:Qty: 1 Explanted:Qty: 1 on 04/13/2014 at [facility] Right: Foot PHP MYSQL WEB [id number]-[id number] / / Procedures Procedure Name Priority Date/Time Associated Diagnosis Comments GLUCOSE - POINT OF CARE Routine 08/24/2019 11:00 AM CDT from Last 3 Months or Most Recently Relevant to Health Maintenance Results * (ABNORMAL) GLUCOSE - POINT OF CARE (08/24/2019 11:00 AM CDT) Glucose WB/POC 159(H) 70 - 115 mg/dL 08/24/2019 11:04 AM CDT [facility] Specimen Type Venous 08/24/2019 11:04 AM CDT [facility] Blood BLOOD SPECIMEN / Unknown 08/24/2019 11:00 AM CDT 08/24/2019 11:04 AM CDT Nikko Gunter DO LAB - POINT OF CARE ORDERABLES Final Result [address] [address], [facility] [phone] from Last 3 Months or Most Recently Relevant to Health Maintenance Insurance [facility] MANAGED MEDICARE [facility] MEDICAID - [place] MEDICAID - OUT OF STATE Member Subscriber Plan / Payer (Ef fective 2019-Present) Name:MesserDamaso Relation to Subscriber:Self Name:MESSERDAMASO Jiang Payer ID:Not on file Group ID:Not on file Type:Medicaid Address: [place] [id number] MANAGED MEDICARE ADV [facility] MANAGED MEDICARE ADV MEDICAID - OUT OF STATE MEDICARE MEDICAID - OUT OF STATE Advance Directives * Full Code (Latest Code Status on File) Date Activated Date Inactivated Comments 04/13/2014 7:24 PM 04/15/2014 5:18 PM Care Teams Water Treatment Plant Repairer Relationship Specialty Start Date End Date Zion Thurman MD PCP - General Family Medicine 12/05/20 Sara Rendon, RN Conveyor Technician 04/14/14
--- OUTSIDE RECORDS SUMMARY | 2024-10-12 07:27 | XMS_ITS | Encounter Summary ---
Author Organization [facility] Address [address] [place] [address] Phone Care Team Providers Care Chief Design Drafter Name Role Phone Zion Thurman MD Primary Care Provider [phone] Reason for Visit * Reason Comments Medication Refill Encounter Details Date Type Department Care Team (Late st Contact Info) Description 05/15/2022 Refill [facility] [address] [place] [address] Zion Thurman MD [address] [place] [address] Medication Refill Social History Tobacco Use Types [...] Marisela Adkins RN - 05/15/2022 9:30 AM DIAGNOSTIC ASSISTANT Needs appointment NOSTIC ASSISTANT documented in this encounter Plan of Treatment Not on file documented as of this encounter Visit Diagnoses Diagnosis Type 2 diabetes mellitus with hyperglycemia, without long-term current use of insulin (HCC) documented in this encounter Additional Health Concerns Assessment Noted Time PHQ-9 Depression Total Score: 0 06/16/19 20 12:48 PM CDT documented as of this encounter Care Teams Chief Design Drafter Relationship Specialty Start Date End Date Zion Thurman MD PCP - General Family Medicine 12/14/18 07/28/23 documented as of this encounter
--- OUTSIDE RECORDS SUMMARY | 2024-10-12 07:27 | XMS_ITS | Continuity of Care Document ---
Author Organization [facility] Address [address] [address] [place] [address] Phone Care Team Providers Care Break Off Worker Name Role Phone Todd Urban MD Unavailable Unavailable Allergies, Adverse Reactions, Alerts Substance Reaction Status Criticality codeine Active No Information tramadol Active No Information Medications Medication Instructions Dosage Effective Dates (start - stop) Status Comments Flippin 10 mg-325 mg tablet take 1 by [...] Diagnoses Date Provider Providers Copied on Encounter [facility], [address], [place], [place], [address], [place] tel:[phone] [facility] No Information 8 Wilmar Brooks. [address], [place], [place], [address] , [place]. tel:[phone] OFFICE/OUTPA TIENT VISIT, EST [facility], [address], [place], [place], [address], [place] tel:[phone] [facility] hep c (chief complaint) glucose1 (chief complaint) thyroid1 (chief complaint) low mcv (chief complaint) cocaine1 (chief complaint) Hepatitis CHyperglycemiaHypot hyroidismOther abnormality of red blood cellsCocaine dependence, uncomplicated 8 Wilmar Brooks. [address], [place], [place], [address] , [place]. tel:[phone] Referring Provider: Todd Urban [address], [place], [place], [address]. tel:[phone] OFFICE/OUTPA TIENT VISIT, [facility], [address], [place], [place], [address], [place] tel:[phone] [facility] chronic pain (chief complaint) GERD1 (chief complaint) Chronic pain syndromeGERD w/o esophagitis 8 Wilmar Brooks. [address], [place], [place], [address] , [place]. tel:[phone] Referring Provider: Todd Urban [address], [place], [place], [address]. tel:[phone] OFFICE/OUTPA TIENT VISIT, [facility], [address], [place], [place], [address], [place] tel:[phone] [facility] Medicine PHysical (chief complaint) Encounter for general adult medical exam w abnormal findingsPolyp of colonGERD w/o esophagitisChronic pain syndrome Sep-0 8 Wilmar Brooks. [address], [place], [place], [address] , [place]. [phone] Referring Provider: Som Swift [address], [place], [place], [address]. tel:[phone] OFFICE/OUTPA TIENT VISIT, EST [facility], [address], [place], [place], [address], [place] [phone] [facility] chronic pain (chief complaint) GERD1 (chief complaint) hyperglyce mia1 (chief complaint) Chronic pain syndromeGERD without esophagitisHypergly cemia 6 Wilmar Pickard [address], [place], [place], [address] , [place]. [phone] Referring Provider: Som Swift [address], [place], [place], [address]. tel:[phone] PREV VISIT, EST, AGE 40-64 [facility], [address], [place], [place], [address], [place] [phone] [facility] PHysical (chief complaint) Encounter for general adult medical exam w abnormal findingsGERD w/o esophagitisHypergly cemiaChronic pain syndrome 6 Wilmar Brooks. [address], [place], [place], [address] , [place]. [phone] Referring Provider: Som Swift [address], [place], [place], [address]. tel:[phone] OFFICE/OUTPA TIENT VISIT, EST [facility], [address], [place], [place], [address], [place] [phone] [facility] hyperglyce mia1 (chief complaint) vitamin D (chief complaint) chronic pain1 (chief complaint) GERD1 (chief complaint) HyperglycemiaChroni c pain syndromeVitamin D deficiency, unspecifiedGERD without esophagitis 6 Wilmar Brooks. [address], [place], [place], [address] , [place]. [phone] Referring Provider: Todd Urban, [address], [place], [place], [address]. tel:[phone] OFFICE/OUTPA TIENT VISIT, [facility], [address], [place], [place], [address], [place] [phone] [facility] foot pain1 (chief complaint) GERD1 (chief complaint) GERD without esophagitisPrimary osteoarthritis, right ankle and foot 5 Wilmar Brooks. [address], [place], [place], [address] , [place]. tel:[phone] Referring Provider: Som Swift [address], [place], [place], [address]. tel:[phone] OFFICE/OUTPA TIENT VISIT, [facility], [address], [place], [place], [address], [place] [phone] [facility] foot pain (chief complaint) Tobacco (chief complaint) HTN (chief complaint) GERD (chief complaint) Unspecified essential hypertensionOther and unspecified hyperlipidemiaPain in joint involving ankle and footEsophageal reflux 5 Wilmar Pickard [address], [place], [place], [address] , [place]. tel:[phone] Referring Provider: Som Swift [address], [place], [place], [address]. tel:[phone] OFFICE/OUTPA TIENT VISIT, [facility], [address], [place], [place], [address], [place] tel:[phone] [facility] foot pain (chief complaint) HLP (chief complaint) Pain in joint involving ankle and footOther and unspecified hyperlipidemia 5 Wilmar Brooks. [address], [place], [place], [address] , [place]. tel: [phone] Referring Provider: Som Swift [address], [place], [place], [address]. tel:[phone] OFFICE/OUTPA TIENT VISIT, [facility], [address], [place], [place], [address], [place] tel:[phone] [facility] chronic pain (chief complaint) HTN (chief complaint) Pain in joint involving ankle and footHypertension, Unspecified 5 5 Wilmar Brooks. [address], [place], [place], [address] , [place]. [phone] Referring Provider: Som Swift [address], [place], [place], [address]. tel:[phone] PREV VISIT, EST, AGE 40-64 [facility], [address], [place], [place], [address], [place] tel:[phone] [facility] Medicine Physical (chief complaint) Routine Medical ExamRoutine Medical Exam 0- 5 Wilmar Brooks. [address], [place], [place], [address] , [place]. [phone] Referring Provider: Som Swift [address], [place], [place], [address]. tel:[phone] OFFICE/OUTPA TIENT VISIT, [facility], [address], [place], [place], [address], [place] tel:[phone] [facility] foot pain (chief complaint) HTN (chief complaint) Hypertension, UnspecifiedPain in joint involving ankle and footOpioid type dependence, unspecified use 5 Wilmar Brooks. [address], [place], [place], [address] , [place]. [phone] Referring Provider: Som Swift [address], [place], [place], [address]. tel:[phone] OFFICE/OUTPA TIENT VISIT, [facility], [address], [place], [place], [address], [place] tel:[phone] [facility] foot pain (chief complaint) tobacco (chief complaint) Tobacco AbusePain in joint involving ankle and foot 5 Wilmar Brooks. [address], [place], [place], [address] , [place]. [phone] Referring Provider: Som Swift [address], [place], [place], [address]. tel:[phone] OFFICE/OUTPA TIENT VISIT, [facility], [address], [place], [place], [address], [place] tel:[phone] [facility] foot pain (chief complaint) abd pain (chief complaint) GERDAbdominal PainPain in joint involving ankle and footTobacco Abuse 4 Wilmar Pickard [address], [place], [place], [address] , [place]. [phone] Referring Provider: Som Swift [address], [place], [place], [address]. tel:[phone] OFFICE/OUTPA TIENT VISIT, [facility], [address], [place], [place], [address], [place] tel:[phone] [facility] GERD (chief complaint) Abdominal PainHemorrhage of rectum and anusGERD 4 Wilmar Pickard [address], [place], [place], [address] , [place]. [phone] Referring Provider: Som Swift [address], [place], [place], [address]. tel:[phone] OFFICE/OUTPA TIENT VISIT, [facility], [address], [place], [place], [address], [place] tel:[phone] [facility] chornic ankle pain (chief complaint) Dietary surveillance and counselingPain in joint involving ankle and foot 0 4 Wilmar Pickard [address], [place], [place], [address] , [place]. tel:[phone] Referring Provider: Som Swift [address], [place], [place], [address]. tel:[phone] OFFICE/OUTPA TIENT VISIT, [facility], [address], [place], [place], [address], [place] [phone] [facility] ankle pain (chief complaint) HLP (chief complaint) Dietary surveillance and counselingPain in joint involving ankle and footOther and unspecified hyperlipidemia 4 Wilmar Brooks. [address], [place], [place], [address] , [place]. tel:[phone] Referring Provider: Som Swift [address], [place], [place], [address]. tel:[phone] OFFICE/OUTPA TIENT VISIT, [facility], [address], [place], [place], [address], [place] tel:[phone] [facility] ankle pain (chief complaint) Pain in joint involving ankle and foot 4 Wilmar Brooks. [address], [place], [place], [address] , [place]. [phone] Referring Provider: Som Swift [address], [place], [place], [address]. tel:[phone] OFFICE/OUTPA TIENT VISIT, [facility], [address], [place], [place], [address], [place] tel:[phone] [facility] ankle pain (chief complaint) HTN (chief complaint) chlamydia (chief complaint) Dietary surveillance and counselingPain in joint involving ankle and footHypertension, UnspecifiedHigh-ris k sexual behavior 4 Wilmar Brooks. [address], [place], [place], [address] , [place]. [phone] Referring Provider: Som Swift [address], [place], [place], [address]. tel:[phone] OFFICE/OUTPA TIENT VISIT, [facility], [address], [place], [place], [address], [place] tel:[phone] [facility] ankle pain (chief complaint) Pain in joint involving ankle and foot 4 Wilmar Brooks. [address], [place], [place], [address] , [place]. tel:[phone] Referring Provider: Todd Urban, [address], [place], [place], [address]. tel:[phone] OFFICE/OUTPA TIENT VISIT, [facility], [address], [place], [place], [address], [place] tel:[phone] [facility] shoulder pain (chief complaint) ankle pain (chief complaint) TG (chief complaint) Pain in joint involving shoulder regionPain in joint involving ankle and footOther and unspecified hyperlipidemia 4 Wilmar Brooks. [address], [place], [place], [address] , [place]. tel:[phone] Referring Provider: Todd Urban, [address], [place], [place], [address]. tel:[phone] OFFICE/OUTPA TIENT VISIT, [facility], [address], [place], [place], [address], [place] tel:[phone] [facility] ankle pain (chief complaint) TG (chief complaint) vitamin D (chief complaint) Pain in joint involving ankle and footOther and unspecified hyperlipidemiaUnspe cified vitamin d deficiency 4 Wilmar Brooks. [address], [place], [place], [address] , [place]. tel:[phone] Referring Provider: Som Swift [address], [place], [place], [address]. tel:[phone] PREV VISIT, NEW, AGE 40-64 [facility], [address], [place], [place], [address], [place] tel:[phone] [facility] Medicine Physical (chief complaint) Routine Medical ExamDietary surveillance and counselingRoutine Medical Exam 4 Wilmar Brooks. [address], [place], [place], [address] , [place]. tel:[phone] Family History Family Member Type Diagnosis Age [...] Of Treatment Date Type Action Status Goal Influenza vaccine. Due on Oc due Goal Depression screening. Due on due Goal Sigmoidoscopy. Due on due Goal Td vaccine. Due on 18 due Goal FOBT. Due on due Goal Lipid panel. Due on due Goal Tdap. Due on due Goal Depression screening. Due on due Goal Influenza vaccine. Due on Oc due Goal Tdap. Due on due Goal Lipid panel. Due on 018 due Goal FOBT. Due on due Goal Td vaccine. Due on 18 due Goal Sigmoidoscopy. Due on due Goal Special diet education compl eted Goal Depression screening. Due on due Goal Influenza vaccine. Due on due Goal Tdap. Due on due Goal Lipid panel. Due on 018 due Goal FOBT. Due on due Goal Td vaccine. Due on 18 due Goal Sigmoidoscopy. Due on due Goal [...] Goal Depression screening. Due on due Goal Depression screening. Due on due Goal Sigmoidoscopy. Due on due Goal Td vaccine. Due on due Goal FOBT. Due on due Goal Influenza vaccine. Due on due Goal Tdap. Due on due Goal Sigmoidoscopy. Due on due Goal Tdap. Due on due Goal Influenza vaccine. Due on due Goal FOBT. Due on due Goal Depression screening. Due on due Goal Td vaccine. Due on 15 due Goal Sigmoidoscopy. Due on due Goal Td vaccine. Due on 15 due Goal Tdap. Due on due Goal Depression screening. Due on due Goal FOBT. Due on due Goal Influenza vaccine. Due on due Goal Tobacco cessation counseling [...] ordered Referral Referred To: Miguel Gunderson [address] [facility] [address] [place], [place] [id number] Ordered: Referrals: Allopathic & Osteopathic Physicians : [...] Date Complaint History Of Prese nt Illness hep c Pt has active he p C. Pt states that he used IV drug when he was back in highschool. glucose1 Pt has mild high glucose Pt denies any polyuria, polydipsia thyroid1 Pt has low thyro id. Pt denies any fatigue low mcv Pt has low MCV P t is not anemic Pt denies any bleeding. cocaine1 Pt has cocaine i n his UDS Pt states that he does not use cocaine chronic pain Pt has chronic r ight foot and ankle pain Pt had multiple surgeries Pt has right foot numbness around the surgery site. pt takes norco PRn for pain Pt denies any worsening pain Pt failed neurontin in the past GERD1 Pt has intermitt ent mild GERD Pt denies any worsening symptoms Pt does not want PPI Pt states that his symptoms is not bad now PHysical Pt needs annual physical. Pt has [...] does not take any heartburn meds now. chronic pain Pt has chronic r ight foot pain. Pt had surgery x 2 but he still c/o persistent pain. Pt states that he can barely walk when he is not wearing shoes. His ortho wants to do more surgery but he does not want to do anymore surgery now. pt denies any swelling GERD1 Pt has chronic G ERD. pt takes omeprazole and doing ok Pt denies any abd apin or any appetite loss hyperglycemia1 Pt has hyperglyc emia Pt denies any polyuria, polydipsia Pt still has not done lab yet PHysical Pt needs annual physical. Pt just [...] doing ok. Pt denies any other complaints hyperglycemia1 Pt has mild hype rglycemia. Pt denies any poluyuria, polydipsia vitamin D Pt has low vitam in D on lab chronic pain1 Pt has chronic r ight foot pain. Pt will surgery tom[facility]orw at [facility] for bone spur GERD1 Pt takes omerpzo le and doing ok with omeprazole. . Pt denies any abd pain or any nausea foot pain1 Pt has chronic r ight [...] foot pain. Pt denies any worsening pain GERD1 Pt has GERD. Pt has been taking omeparzole 40 mg daily Pt denies any GERD symptoms GERD Associated sympt oms include heartburn. Pertinent negatives include blood in stool, constipation, diarrhea, dyspnea, fever, hematuria, rash, vomiting, weight gain and weight loss.Additional information:Pt is out of 40 mg omerpazole and is taking 20 mg and notices more GERD. No abd pain. foot pain Location: foot. Additional information: Pt has chronic right foot pain. Pt had foot surgery but his pain level still persist. pt also has numbness right foot. pt was started by foot surgeon elsie LEBLANC but he has not noticed much improvement. Tobacco Pt still smokes maybe 10 cig per day. Pt is trying to quit HTN Pt has mild HTN today. PT denies any chest pain or headache Instructions Date Instruction Additional Infor gavino Increase [...]
--- OUTSIDE RECORDS SUMMARY | 2024-10-12 07:27 | XMS_ITS | Encounter Summary ---
Author Organization [facility] Address [address] [place] [address] Phone Care Team Providers Care Groundskeeping Maintenance Worker Name Role Phone Zion Thurman MD Primary Care Provider [phone] Reason for Visit * Reason Onset Date Comments Medication Refill 10/20/2020 Encounter Details Date Type Department Care Team (Late st Contact Info) Description 10/20/2020 Refill [facility] - Family Medicine [facility] [address] [place] [address] Zion Thurman MD [address] [place] [address] Medication Refill Social History Tobacco Use Types [...] documented as of this encounter Care Teams Groundskeeping Maintenance Worker Relationship Specialty Start Date End Date Zion Thurman MD PCP - General Family Medicine 12/14/18 07/28/23 documented as of this encounter
--- OUTSIDE RECORDS SUMMARY | 2024-10-12 07:27 | XMS_ITS | Clinical Summary ---
Author Organization [facility] Address [address] [place] [address] Phone Care Team Providers Care Referral Agent Name Role Phone Unavailable Primary Care Provider [...] 90 Lancet 11 1 Active Glucose Blood (Avocado EntertainmentTouch Ultra) StripIndication s:Type 2 diabetes mellitus with hyperglycemia, without long-term current use of insulin ([facility]) USE TO TEST BLOOD SUGAR ONCE [...] Comments Blood Pressure 134/83 05/26/2023 12:57 PM MOBILE HEAVY EQUIPMENT OPERATOR Pulse 111 05/26/2023 12:57 PM MOBILE HEAVY EQUIPMENT OPERATOR Temperature 36.2 C (97.2 F) 05/26/2023 12:57 PM MOBILE HEAVY EQUIPMENT OPERATOR Respiratory Rate 14 05/26/2023 12:57 PM MOBILE HEAVY EQUIPMENT OPERATOR Oxygen Saturation 98% 05/26/2023 12:57 PM MOBILE HEAVY EQUIPMENT OPERATOR Inhaled Oxygen Concentration - - Weight 81.6 kg (180 lb) 05/26/2023 12:57 PM MOBILE HEAVY EQUIPMENT OPERATOR Height 180.3 cm (5' 11) 05/26/2023 12:57 PM MOBILE HEAVY EQUIPMENT OPERATOR Body Mass Index 25.1 05/26/2023 12:57 PM MOBILE HEAVY EQUIPMENT OPERATOR Plan of Treatment Health Maintenance Due Date Last Done Comments Diabetes: Eye Exam 1965 Diabetes: Foot Exam 1965 TdaP Immunization 1965 Pneumococcal Immunization (50+ years) (1 of 2 - PCV) 10/05/1983 Cologuard 2009 Colonoscopy 2009 Colorectal Cancer Screening 2009 Immunochemical Fecal Occult Blood 2009 Zoster Immunization (1 of 2) 2014 Hepatitis B Immunization (2 of 3 - Risk 3-dose series) 11/28/2015 10/31/2015 PSA Discussion 10/05/2019 Diabetes: Hemoglobin A1c 12/17/2019 06/16/2019 Diabetes: Nephropathy Screening 06/27/2020 06/28/2019, 06/28/2019, 06/18/2019, Additional history exists SARS-COV-2 Immunization ( - 2023- season) 2023 Influenza Immunization (#1) 2024 Respiratory Syncytial Virus (RSV) Immunization (Adult) (1 - 1-dose 75+ series) 10/05/2039 Human Papillomavirus (HPV) Immunization Aged Out No longer eligible based on patient's age to complete this topic Meningococcal Immunization (ACWY) Aged Out No longer [...] 144 mmol/L 06/28/2019 5:37 PM CDT [facility] POTASSIUM 4.4 3.5 - 5.1 mmol/L 06/28/2019 5:37 PM [facility] CHLORIDE 103 100 - 110 mmol/L 06/28/2019 5:37 PM [facility] CO2, VENOUS 26 22 - 32 mmol/L 06/28/2019 5:37 PM [facility] ANION GAP 15.4 8.0 - 20.0 mmol/L 06/28/2019 5:37 PM [facility] GLUCOSE 194(H) 70 - 99 mg/dL 06/28/2019 5:[address] [facility] BUN 11 6 - 20 mg/dL 06/28/2019 5:37 PM [facility] CREATININE, BLOOD 0.64(L) 0.80 - 1.30 mg/dL 06/28/2019 5:37 PM [facility] BUN/CREATININE RATIO 17 12 - 20 ratio 06/28/2019 5:37 PM [facility] TOTAL PROTEIN 7.8 6.0 - 8.3 g/dL 06/28/2019 5:[address] [facility] ALBUMIN 4.3 3.5 - 5.2 g/dL 06/28/2019 5:37 PM [facility] Comment: The colormetric methods used for the determination of Albumin may lead to falsely elevated test results in patients suffering from renal failure or insufficiency due to interference with other proteins. A/G RATIO 1.2 1.0 - 2.0 06/28/2019 5:37 PM [facility] CALCIUM 10.0 8.9 - 10.3 mg/dL 06/28/2019 5:37 PM [facility] T BILI <=0.2 <=1.2 mg/dL 06/28/2019 5:[address] [facility] SGOT (AST) 21 <=40 U/L 06/28/2019 5:37 PM [facility] SGPT (ALT) 30 <=41 U/L 06/28/2019 5:[address] [facility] ALKALINE PHOSPHATASE 68 40 - 130 U/L 06/28/2019 5:37 PM CDT [facility] GFR, EST. NONAFRICAN >60 >=60 06/28/2019 5:37 PM CDT [facility] GFR, EST. >60 >=60 020 5:37 PM CDT [facility] Comment: Creatinine Clearance is the preferred criteria for selecting drug dose adjustments in renally impaired patients. The GFR is provided as additional pertinent clinical information. GFR is reported in mL/min/1.73 sq m. Blood specimen (specimen) Venipuncture / Unknown 06/28/2019 10:58 AM CDT 06/28/2019 10:58 AM CDT us Rachna Lyons PAC CHEMISTRY ORDERABLES Fin al Result [facility] [address] [place] [address] * (ABNORMAL) POCT GLYCOSYLATED HEMOGLOBIN (06/16/2019 1:00 PM CDT) HGB-A1C 13.5(A) 4 - 6 06/16/2019 1:00 PM CDT us Viki Ferguson APRN, CASE LOADER OPERATOR POINT OF CARE TESTIN G (MANUAL) Final Result from Last 3 Months or Most Recently Relevant to Health Maintenance Insurance MEDICARE MEDICARE C [facility] [id number]
--- OUTSIDE RECORDS SUMMARY | 2024-10-12 07:27 | XMS_ITS | Clinical Summary ---
Author Organization [facility] Address [facility] [place] [address] Care Team Providers Care Rn Wound Care Name Role Phone Unavailable Primary Care Provider Unavailabl e Social History Tobacco Use Types Packs/Day Years Used Date Smoking Tobacco: Never Assessed Sex and Gender Information Value Date Recorded Sex Assigned at Not on file Legal Sex Male 8:19 PM CDT Gender Identity Not on file Sexual Orientation Not on file Plan of Treatment Health Maintenance Due Date Last Done Comments Colorectal Cancer Screening Colonoscopy (10 Years) 1964 Annual Physical 10/05/1967 Hepatitis C 1982 DTaP, Tdap and Td Vaccines ( 1 - Tdap) 10/05/1983 Pneumococcal Vaccine: 50+ Ye ars (1 of 1 - PCV) 2014 Zoster Vaccines (1 of 2) 2014 COVID-19 Vaccine ( - 2023-2 5 season) 2023 RSV Immunization or 60+ Years (1 - 1-dose 75+ series) 10/05/2039 Meningococcal B Vaccine Aged Out No l onger eligible based on patient's age to complete this topic Meningococcal Vaccine Aged Out No arnold venessa eligible based on patient's age to complete this topic RSV Immunizations Under 20 Months Aged Out No longer eligible based on patient's age to complete this topic
== END 2024-10-12 07:24 | disposition home or self-care (01) ==
LOC: ANHAUDIO 07:25
PROVIDERS: PCP Internal Medicine; Visit Provider Internal Medicine
DX: H90.3 Sensorineural hearing loss, bilateral (principal)
CPT/HCPCS: 92557; 92567

== ENCOUNTER 2024-11-01 14:17 | Outpatient (CLI) | payer MEDICARE, MEDICAID, SELFPAY ==
--- OUTSIDE RECORDS SUMMARY | 2024-11-01 14:20 | XMS_ITS | Continuity of Care Document ---
Author Organization [facility] Address [address] [place] [address] [place] [address] Phone Care Team Providers Care Jewelry Salesperson Name Role Phone Todd Urban MD Unavailable Unavailable Allergies, Adverse Reactions, Alerts Substance Reaction Status Criticality codeine Active No Information tramadol Active No Information Medications Medication Instructions Dosage Effective Dates (start - stop) Status Comments [place] 10 mg-325 mg tablet take 1 by [...] Diagnoses Date Provider Providers Copied on Encounter [facility], [address], [place], [place], [address], [place] tel:[phone] [facility] No Information 8 Wilmar Brooks. [address], [place], [place], [address] , [place]. tel:[phone] OFFICE/OUTPA TIENT VISIT, EST [facility], [address], [place], [place], [address], [place] tel:[phone] [facility] hep c (chief complaint) glucose1 (chief complaint) thyroid1 (chief complaint) low mcv (chief complaint) cocaine1 (chief complaint) Hepatitis CHyperglycemiaHypot hyroidismOther abnormality of red blood cellsCocaine dependence, uncomplicated 8 Wilmar Brooks. [address], [place], [place], [address] , [place]. tel:[phone] Referring Provider: Todd Urban [address], [place], [place], [address]. tel:[phone] OFFICE/OUTPA TIENT VISIT, [facility], [address], [place], [place], [address], [place] tel:[phone] [facility] chronic pain (chief complaint) GERD1 (chief complaint) Chronic pain syndromeGERD w/o esophagitis 8 Wilmar Brooks. [address], [place], [place], [address] , [place]. tel:[phone] Referring Provider: Todd Urban [address], [place], [place], [address]. tel:[phone] OFFICE/OUTPA TIENT VISIT, [facility], [address], [place], [place], [address], [place] tel:[phone] [facility] Medicine PHysical (chief complaint) Encounter for general adult medical exam w abnormal findingsPolyp of colonGERD w/o esophagitisChronic pain syndrome Sep-0 8 Wilmar Brooks. [address], [place], [place], [address] , [place]. [phone] Referring Provider: Som Swift [address], [place], [place], [address]. tel:[phone] OFFICE/OUTPA TIENT VISIT, EST [facility], [address], [place], [place], [address], [place] [phone] [facility] chronic pain (chief complaint) GERD1 (chief complaint) hyperglyce mia1 (chief complaint) Chronic pain syndromeGERD without esophagitisHypergly cemia 6 Wilmar Pickard [address], [place], [place], [address] , [place]. tel:[phone] Referring Provider: Som [address], [place], [place], [address]. tel:[phone] PREV VISIT, EST, AGE 40-64 [facility], [address], [place], [place], [address], [place] [phone] [facility] PHysical (chief complaint) Encounter for general adult medical exam w abnormal findingsGERD w/o esophagitisHypergly cemiaChronic pain syndrome 6 Wilmar Brooks. [address], [place], [place], [address] , [place]. [phone] Referring Provider: Som Swift [address], [place], [place], [address]. tel:[phone] OFFICE/OUTPA TIENT VISIT, EST [facility], [address], [place], [place], [address], [place] [phone] [facility] hyperglyce mia1 (chief complaint) vitamin D (chief complaint) chronic pain1 (chief complaint) GERD1 (chief complaint) HyperglycemiaChroni c pain syndromeVitamin D deficiency, unspecifiedGERD without esophagitis 6 Wilmar Brooks. [address], [place], [place], [address] , [place]. [phone] Referring Provider: Todd Urban, [address], [place], [place], [address]. tel:[phone] OFFICE/OUTPA TIENT VISIT, [facility], [address], [place], [place], [address], [place] [phone] [facility] foot pain1 (chief complaint) GERD1 (chief complaint) GERD without esophagitisPrimary osteoarthritis, right ankle and foot 5 Wilmar Brooks. [address], [place], [place], [address] , [place]. tel:[phone] Referring Provider: Som Swift [address], [place], [place], [address]. tel:[phone] OFFICE/OUTPA TIENT VISIT, [facility], [address], [place], [place], [address], [place] [phone] [facility] foot pain (chief complaint) Tobacco (chief complaint) HTN (chief complaint) GERD (chief complaint) Unspecified essential hypertensionOther and unspecified hyperlipidemiaPain in joint involving ankle and footEsophageal reflux 5 Wilmar Pickard [address], [place], [place], [address] , [place]. tel:[phone] Referring Provider: Som Swift [address], [place], [place], [address]. tel:[phone] OFFICE/OUTPA TIENT VISIT, [facility], [address], [place], [place], [address], [place] tel:[phone] [facility] foot pain (chief complaint) HLP (chief complaint) Pain in joint involving ankle and footOther and unspecified hyperlipidemia 5 Wilmar Brooks. [address], [place], [place], [address] , [place]. [phone] Referring Provider: Som Swift [address], [place], [place], [address]. tel:[phone] OFFICE/OUTPA TIENT VISIT, [facility], [address], [place], [place], [address], [place] tel:[phone] [facility] chronic pain (chief complaint) HTN (chief complaint) Pain in joint involving ankle and footHypertension, Unspecified 5 5 Wilmar Brooks. [address], [place], [place], [address] , [place]. [phone] Referring Provider: Som Swift [address], [place], [place], [address]. tel:[phone] PREV VISIT, EST, AGE 40-64 [facility], [address], [place], [place], [address], [place] tel:[phone] [facility] Medicine Physical (chief complaint) Routine Medical ExamRoutine Medical Exam 0- 5 Wilmar Brooks. [address], [place], [place], [address] , [place]. [phone] Referring Provider: Som Swift [address], [place], [place], [address]. tel:[phone] OFFICE/OUTPA TIENT VISIT, [facility], [address], [place], [place], [address], [place] tel:[phone] [facility] foot pain (chief complaint) HTN (chief complaint) Hypertension, UnspecifiedPain in joint involving ankle and footOpioid type dependence, unspecified use 5 Wilmar Brooks. [address], [place], [place], [address] , [place]. [phone] Referring Provider: Som Swift [address], [place], [place], [address]. tel:[phone] OFFICE/OUTPA TIENT VISIT, [facility], [address], [place], [place], [address], [place] tel:[phone] [facility] foot pain (chief complaint) tobacco (chief complaint) Tobacco AbusePain in joint involving ankle and foot 5 Wilmar Brooks. [address], [place], [place], [address] , [place]. [phone] Referring Provider: Som Swift [address], [place], [place], [address]. tel:[phone] OFFICE/OUTPA TIENT VISIT, [facility], [address], [place], [place], [address], [place] tel:[phone] [facility] foot pain (chief complaint) abd pain (chief complaint) GERDAbdominal PainPain in joint involving ankle and footTobacco Abuse 4 Wilmar Pickard [address], [place], [place], [address] , [place]. [phone] Referring Provider: Som Swift [address], [place], [place], [address]. tel:[phone] OFFICE/OUTPA TIENT VISIT, [facility], [address], [place], [place], [address], [place] tel:[phone] [facility] GERD (chief complaint) Abdominal PainHemorrhage of rectum and anusGERD 4 Wilmar Pickard [address], [place], [place], [address] , [place]. [phone] Referring Provider: Som Swift [address], [place], [place], [address]. tel:[phone] OFFICE/OUTPA TIENT VISIT, [facility], [address], [place], [place], [address], [place] tel:[phone] [facility] chornic ankle pain (chief complaint) Dietary surveillance and counselingPain in joint involving ankle and foot 0 4 Wilmar Pickard [address], [place], [place], [address] , [place]. tel:[phone] Referring Provider: Som Swift [address], [place], [place], [address]. tel:[phone] OFFICE/OUTPA TIENT VISIT, [facility], [address], [place], [place], [address], [place] [phone] [facility] ankle pain (chief complaint) HLP (chief complaint) Dietary surveillance and counselingPain in joint involving ankle and footOther and unspecified hyperlipidemia 4 Wilmar Brooks. [address], [place], [place], [address] , [place]. tel:[phone] Referring Provider: Som Swift [address], [place], [place], [address]. tel:[phone] OFFICE/OUTPA TIENT VISIT, [facility], [address], [place], [place], [address], [place] tel:[phone] [facility] ankle pain (chief complaint) Pain in joint involving ankle and foot 4 Wilmar Brooks. [address], [place], [place], [address] , [place]. [phone] Referring Provider: Som Swift [address], [place], [place], [address]. tel:[phone] OFFICE/OUTPA TIENT VISIT, [facility], [address], [place], [place], [address], [place] tel:[phone] [facility] ankle pain (chief complaint) HTN (chief complaint) chlamydia (chief complaint) Dietary surveillance and counselingPain in joint involving ankle and footHypertension, UnspecifiedHigh-ris k sexual behavior 4 Wilmar Brooks. [address], [place], [place], [address] , [place]. [phone] Referring Provider: Som Swift [address], [place], [place], [address]. tel:[phone] OFFICE/OUTPA TIENT VISIT, [facility], [address], [place], [place], [address], [place] tel:[phone] [facility] ankle pain (chief complaint) Pain in joint involving ankle and foot 4 Wilmar Brooks. [address], [place], [place], [address] , [place]. tel:[phone] Referring Provider: Todd Urban, [address], [place], [place], [address]. tel:[phone] OFFICE/OUTPA TIENT VISIT, [facility], [address], [place], [place], [address], [place] tel:[phone] [facility] shoulder pain (chief complaint) ankle pain (chief complaint) TG (chief complaint) Pain in joint involving shoulder regionPain in joint involving ankle and footOther and unspecified hyperlipidemia 4 Wilmar Brooks. [address], [place], [place], [address] , [place]. tel:[phone] Referring Provider: Todd Urban, [address], [place], [place], [address]. tel:[phone] OFFICE/OUTPA TIENT VISIT, [facility], [address], [place], [place], [address], [place] tel:[phone] [facility] ankle pain (chief complaint) TG (chief complaint) vitamin D (chief complaint) Pain in joint involving ankle and footOther and unspecified hyperlipidemiaUnspe cified vitamin d deficiency 4 Wilmar Brooks. [address], [place], [place], [address] , [place]. tel:[phone] Referring Provider: Som Swift [address], [place], [place], [address]. tel:[phone] PREV VISIT, NEW, AGE 40-64 [facility], [address], [place], [place], [address], [place] tel:[phone] [facility] Medicine Physical (chief complaint) Routine Medical ExamDietary surveillance and counselingRoutine Medical Exam 4 Wilmar Brooks. [address], [place], [place], [address] , [place]. tel:[phone] Family History Family Member Type Diagnosis Age At Onset Brother Problem (finding) Alive and well Mother Problem (finding) Alive and well Father Problem (finding) Alive and well Payers Payer name Insurance type Covered democrat ID Authoriza tion(s) No Information Social History [...] ordered Referral Referred To: Miguel Gunderson [address] [facility]
[address] [phone] Ordered: Referrals: Allopathic & Osteopathic Physicians : [...] foot pain. Pt will surgery [facility] at [facility] for bone spur GERD1 Pt takes [...]
--- OUTSIDE RECORDS SUMMARY | 2024-11-01 14:20 | XMS_ITS | Clinical Summary ---
Author Organization [facility] Address [address] [place] [address] Care Team Providers Care Junior Media Buyer Name Role Phone Sara Rendon RN Unavailable [phone] Zion Thurman MD Primary Care Provider [phone] Source Comments [facility],non-owned Affiliates and Associated Physician Practices is amultiple site organization consisting of ambulatory clinics and hospital sitesin [place], [place], [place] and [place]. This disclosure is being madepursuant to the Care Everywhere program and may not contain all information available regarding this patient. 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 Gender Identity Not on file Sexual Orientation [...] 1964 DTAP/TDAP/TD VACCINES (1 - Tdap) 10/05/1983 PNEUMOCOCCAL VACCINE 50+ (1 of 2 - PCV) 10/05/1983 ZOSTER VACCINE (1 of 2) 2014 SCREENING FOR DIABETES 09/22/2022 0, 08/24/2019, 06/28/2019, Additional history exists COVID-19 VACCINE ( - 2023- season) 2023 DEPRESSION SCREENING 04/07/2024 MEDICARE AWV CALENDAR YEAR 2024 LIPID TESTING 06/27/2024 06/28/2019 INFLUENZA VACCINE (#1) 2024 Respiratory Syncytial Virus (RSV) Vaccine Pt: or over 60 yrs (1 - 1-dose 75+ series) 10/05/2039 HEPATITIS C SCREENING Completed 09/23/2019 , 09/23/2019, 09/23/2019, Additional history exists HIV SCREENING Completed 09/23/2019 HEPATITIS B VACCINE Aged Out No longe r eligible based on patient's age to complete this topic HIB VACCINE Aged Out No longer eligi [...] Problems Recent Progress Patient-Stated? Author Mobility General Natasha Amado RN Note: Expected end date: 04/06/21 The goal is to maintain or improve your mobility at the optimum level for you. Interventions: Medical Devices Implanted Type Area Vp Cardiovascular Service Line Device Identifier Shelf Expiration Date Model / Serial / Lot Wax Bone Implanted:Qty: 1 on 04/13/2014 by Nikko Gunter DO at [facility] Right: Hip [employer] 01/05/2018 [id number] / / [id number] 3.5 Locking Screw Implanted:Qty: 1 on 04/13/2014 by Nikko Gunter DO at [facility] Right: Foot [id number]-507-10-1 6 / / 3.5 Non Locking Screw Implanted:Qty: 1 on 04/13/2014 by Nikko Gunter DO at [facility] Right: Foot MSM-973-15-3 7.5 / / Ortholink Standard Plate Implanted:Qty: 1 on 04/13/2014 by Nikko Gunter DO at [facility] GLASSBLOWER-002-PM / / 4.0 Non Locking Screw Implanted:Qty: 1 on 04/13/2014 by Nikok Gunter DO at [facility] Right: Foot XAV-900-69-4 75 / / 3.5 Non Locking Screw Implanted:Qty: 1 on 04/13/2014 by Nikko Gunter DO at [facility] Right: Foot DID-383-31-3 0 / / Plate Implanted:Qty: 1 on 04/13/2014 by Nikko Gunter DO at [facility] Right: Foot EDL-001-00 / / 3.5 Locking Screw Implanted:Qty: 1 on 04/13/2014 by Nikko Gunter DO at [facility] Right: Foot ELW-377-68-2 8 / / 3.5 Non Locking Screw Implanted:Qty: 1 on 04/13/2014 by Nikko Gunter DO at [facility] Right: Foot [id number] 5 / / Plate Implanted:Qty: 1 on 04/13/2014 by Nikko Gunter DO at [facility] Right: Foot GLASSBLOWER-002-Y / / 3.5 Locking Screw Implanted:Qty: 1 on 04/13/2014 by Nikko Gunter DO at [facility] Right: Foot NLL-192-72-2 0 / / 3.5 Non Locking Screw Implanted:Qty: 1 on 04/13/2014 by Nikko Gunter DO at [facility] Right: Foot JFD-670-34-2 4 / / Explanted Type Area Vp Cardiovascular Service Line Device Identifier Shelf Expiration Date Model / Serial / Lot 3.5 Locking Screw Explanted:Qty: 1 on 04/13/2014 at [facility] Right: Foot GLASSBLOWER-021-35- 325 / / 3.5 Locking Screw Implanted:Qty: 1 Explanted:Qty: 1 on 04/13/2014 at [facility] Right: Foot GLASSBLOWER-021-35- 22 / / Procedures Procedure Name Priority Date/Time Associated Diagnosis [facility] - POINT OF CARE Routine 08/24/2019 11:00 AM CDT from Last 3 Months or Most Recently Relevant to Health Maintenance Results * (ABNORMAL) GLUCOSE - POINT OF CARE (08/24/2019 11:00 AM CDT) Glucose WB/POC 159(H) 70 - 115 mg/dL 08/24/2019 11:04 AM CDT [facility] Specimen Type Venous 08/24/2019 11:04 AM CDT [facility] Blood BLOOD SPECIMEN / Unknown 08/24/2019 11:00 AM CDT 08/24/2019 11:04 AM CDT Nikko Gunter DO LAB - POINT OF CARE ORDERABLES Final Result [address] [address], [facility] [phone] from Last 3 Months or Most Recently Relevant to Health Maintenance Insurance [facility] MANAGED MEDICARE [facility] MEDICAID - [place] MEDICAID - OUT OF STATE [employer] MANAGED MEDICARE ADV [facility] MANAGED MEDICARE ADV MEDICARE Member Subscriber Plan / Payer (Ef fective 2017-Present) Name:Damaso Messer Member ID:[id number] Relation to Subscriber:Self Name:DAMASO MESSER JR Subscriber ID:[id number] Payer ID:Not on file Group ID:Not on file Type:Medicare Address: [place] [id number] MEDICAID - OUT OF STATE MEDICARE Member Subscriber Plan / Payer ( fective 2017-Present) Name:Damaso Messer Member ID:[id number] Relation to Subscriber:Self Name:DAMASO MESSER JR Subscriber ID:[id number] Payer ID:Not on file Group ID:Not on file Type:Medicare Address: [place] [id number] MEDICAID - OUT OF STATE Advance Directives * Full Code (Latest Code Status on File) Date Activated Date Inactivated Comments 04/13/2014 7:24 PM 04/15/2014 5:18 PM Care Teams Junior Media Buyer Relationship Specialty Start Date End Date Zion Thurman MD PCP - General Family Medicine 12/05/20 Sara Rendon, RN Bat Boy/Girl 04/14/14
--- OUTSIDE RECORDS SUMMARY | 2024-11-01 14:20 | XMS_ITS | Encounter Summary ---
Author Organization [facility] Address [address] [place] [address] Phone Care Team Providers Care Strapper Operator Name Role Phone Zion Thurman MD Primary Care Provider [phone] Reason for Visit * Reason Onset Date Comments Medication Refill 10/20/2020 Encounter Details Date Type Department Care Team (Late st Contact Info) Description 10/20/2020 Refill [facility] - Family Medicine [facility] [address] [place] [address] Zion Thurman MD [address] [place] [address] Medication Refill Social History Tobacco Use Types [...] documented as of this encounter Care Teams Strapper Operator Relationship Specialty Start Date End Date Zion Thurman MD PCP - General Family Medicine 12/14/18 07/28/23 documented as of this encounter
--- OUTSIDE RECORDS SUMMARY | 2024-11-01 14:20 | XMS_ITS | Encounter Summary ---
Author Organization [facility] Address [address] [place] [address] Phone Care Team Providers Care Parliamentary Counsel Name Role Phone Zion Thurman MD Primary Care Provider [phone] Reason for Visit * Reason Comments Medication Refill Encounter Details Date Type Department Care Team (Late st Contact Info) Description 05/15/2022 Refill [facility] [address] [place] [address] Zion Thurman MD [address] [place] [address] Medication Refill Social History Tobacco Use Types [...] Marisela Adkins RN - 05/15/2022 9:30 AM HISTORY TEACHER Needs appointment ORY TEACHER documented in this encounter Plan of Treatment Not on file documented as of this encounter Visit Diagnoses Diagnosis Type 2 diabetes mellitus with hyperglycemia, without long-term current use of insulin (HCC) documented in this encounter Additional Health Concerns Assessment Noted Time PHQ-9 Depression Total Score: 0 06/16/19 20 12:48 PM CDT documented as of this encounter Care Teams Parliamentary Counsel Relationship Specialty Start Date End Date Zion Thurman MD PCP - General Family Medicine 12/14/18 07/28/23 documented as of this encounter
--- OUTSIDE RECORDS SUMMARY | 2024-11-01 14:20 | XMS_ITS | Clinical Summary ---
Author Organization [facility] Address [address] [place] [address] Phone Care Team Providers Care Director Digital Marketing Name Role Phone Unavailable Primary Care Provider [...] 90 Lancet 11 1 Active Glucose Blood (CrowdtapTouch Ultra) StripIndication s:Type 2 diabetes mellitus with hyperglycemia, without long-term current use of insulin ([facility]) USE TO TEST BLOOD SUGAR ONCE DAILY [...] Comments Blood Pressure 134/83 05/26/2023 12:57 PM PRODUCTION ARTIST Pulse 111 05/26/2023 12:57 PM PRODUCTION ARTIST Temperature 36.2 C (97.2 F) 05/26/2023 12:57 PM PRODUCTION ARTIST Respiratory Rate 14 05/26/2023 12:57 PM PRODUCTION ARTIST Oxygen Saturation 98% 05/26/2023 12:57 PM PRODUCTION ARTIST Inhaled Oxygen Concentration - - Weight 81.6 kg (180 lb) 05/26/2023 12:57 PM PRODUCTION ARTIST Height 180.3 cm (5' 11) 05/26/2023 12:57 PM PRODUCTION ARTIST Body Mass Index 25.1 05/26/2023 12:57 PM PRODUCTION ARTIST Plan of Treatment Health Maintenance Due Date [...] 144 mmol/L 06/28/2019 5:37 PM CDT [facility] POTASSIUM 4.4 3.5 - 5.1 mmol/L 06/28/2019 5:37 PM [facility] CHLORIDE 103 100 - 110 mmol/L 06/28/2019 5:37 PM [facility] CO2, VENOUS 26 22 - 32 mmol/L 06/28/2019 5:37 PM [facility] ANION GAP 15.4 8.0 - 20.0 mmol/L 06/28/2019 5:37 PM [facility] GLUCOSE 194(H) 70 - 99 mg/dL 06/28/2019 5:[address] [facility] BUN 11 6 - 20 mg/dL 06/28/2019 5:37 PM [facility] CREATININE, BLOOD 0.64(L) 0.80 - 1.30 mg/dL 06/28/2019 5:37 PM [facility] BUN/CREATININE RATIO 17 12 - 20 ratio 06/28/2019 5:37 PM [facility] TOTAL PROTEIN 7.8 6.0 - 8.3 g/dL 06/28/2019 5:[address] [facility] ALBUMIN 4.3 3.5 - 5.2 g/dL 06/28/2019 5:37 PM [facility] Comment: The colormetric methods used for the determination of Albumin may lead to falsely elevated test results in patients suffering from renal failure or insufficiency due to interference with other proteins. A/G RATIO 1.2 1.0 - 2.0 06/28/2019 5:37 PM [facility] CALCIUM 10.0 8.9 - 10.3 mg/dL 06/28/2019 5:37 PM [facility] T BILI <=0.2 <=1.2 mg/dL 06/28/2019 5:[address] [facility] SGOT (AST) 21 <=40 U/L 06/28/2019 5:37 PM [facility] SGPT (ALT) 30 <=41 U/L 06/28/2019 5:[address] [facility] ALKALINE PHOSPHATASE 68 40 - 130 U/L 06/28/2019 5:37 PM CDT [facility] GFR, EST. NONAFRICAN >60 >=60 06/28/2019 5:37 PM CDT [facility] GFR, EST. >60 >=60 020 5:37 PM CDT [facility] Comment: Creatinine Clearance is the preferred criteria for selecting drug dose adjustments in renally impaired patients. The GFR is provided as additional pertinent clinical information. GFR is reported in mL/min/1.73 sq m. Blood specimen (specimen) Venipuncture / Unknown 06/28/2019 10:58 AM CDT 06/28/2019 10:58 AM CDT us Rachna Lyons PAC CHEMISTRY ORDERABLES Fin al Result [facility] [address] [place] [address] * (ABNORMAL) POCT GLYCOSYLATED HEMOGLOBIN (06/16/2019 1:00 PM CDT) HGB-A1C 13.5(A) 4 - 6 06/16/2019 1:00 PM CDT us Viki Ferguson APRN, AGENCY CASHIER POINT OF CARE TESTIN G (MANUAL) Final Result from Last 3 Months or Most Recently Relevant to Health Maintenance Insurance MEDICARE MEDICARE C [facility] [place] [id number]
--- OUTSIDE RECORDS SUMMARY | 2024-11-01 14:20 | XMS_ITS | Clinical Summary ---
Author Organization [facility] Address [facility] [place] [address] Care Team Providers Care Agent Based Modeler Name Role Phone Unavailable Primary Care Provider [...]
--- OUTSIDE RECORDS SUMMARY | 2024-11-01 14:20 | XMS_ITS | Encounter Summary ---
Author Organization [facility] Address [address] [place] [address] Phone Care Team Providers Care Component Lab Tech Name Role Phone Zion Thurman MD Primary Care Provider [phone] Reason for Visit * Reason Onset Date Comments Medication Refill 12/28/2020 Encounter Details Date Type Department Care Team (Late st Contact Info) Description 12/28/2020 Refill [facility] - Family Medicine [facility] [address] [place] [address] Zion Thurman MD [address] [place] [address] Medication Refill Social History Tobacco Use Types [...] CDT Message was sent to patient via [employer]. * Telephone Encounter - Brit Go RN [...] documented as of this encounter Care Teams Component Lab Tech Relationship Specialty Start Date End Date Zion Thurman MD PCP - General Family Medicine 12/14/18 07/28/23 documented as of this encounter
[2024-11-01 18:45] LABS: Hematocrit 42.2 % (42.0-52.0); Hemoglobin 12.8 g/dL (14.0-18.0); Immature Granulocyte Percent A 0.3 % (0-0.5); Lymphocytes Absolute Auto 4.83 K/mm3 (0.9-3.2); Mean Corpuscular HGB Conc 30.3 g/dl (32-36); Mean Corpuscular Hemoglobin 25.0 pg (26-34); Mean Corpuscular Volume 82.6 fl (80-100); Nucleated Red Blood Cells Absolute Auto 0.000 K/mm3 (0.0-0.012); Nucleated Red Blood Cells Perc 0.0 % (0.0-0.2); Platelet Count Result 307 k/mm3 (150-375); Red Blood Count 5.11 M/mm3 (4.6-6.20); White Blood Count 11.7 K/mm3 (4.5-10.0)
[2024-11-01 19:12] LABS: Hemoglobin A1C 7.0 % (<5.7)
[2024-11-01 19:26] LABS: Ferritin 70.90 ng/mL (11.1-264)
[2024-11-01 19:27] LABS: Alanine Aminotransferase 20 U/L (6-50); Albumin Level 4.4 g/dL (3.5-5.1); Alkaline Phosphatase 88 U/L (38-126); Anion Gap 10 mmol/L (4-12); Aspartate Amino Transferase 44 U/L (17-59); Bilirubin,Total 0.4 mg/dL (0.2-1.3); Blood Urea Nitrogen 11 mg/dL (9-20); Calcium 9.4 mg/dL (8.4-10.2); Carbon Dioxide 26 mmol/L (22-30); Chloride 98 mmol/L (98-107); Estimated Glomerular Filt Rate > 60; Glucose 110 mg/dL (65-110); Potassium 4.4 mmol/L (3.4-5.0); Sodium 134 mmol/L (137-145); Total Protein 8.6 g/dL (6.3-8.2)
[2024-11-01 19:50] LABS: Add Urine Microscopic? YES; Appearance Urine Clear (Clear); Glucose Urine UA 3+ mg/dL (Negative); Leukocyte Esterase Ur Trace LEU/UL (Negative); Nitrate Urine Negative (Negative); Non Pathogenic Casts 0-2; Specific Grav Ur 1.010 (1.001-1.035)
[2024-11-01 21:57] LABS: Vitamin B12 352.0 pg/mL (239-931)
== END 2024-11-01 14:18 | disposition home or self-care (01) ==
LOC: ANHGOSHLAB 14:18
PROVIDERS: PCP Internal Medicine; Visit Provider Internal Medicine
DX: E11.65 Type 2 diabetes mellitus with hyperglycemia (principal); Z86.19 Personal history of other infectious and parasitic diseases; D64.9 Anemia, unspecified; Z59.00 Homelessness unspecified; S39.91XA Unspecified injury of abdomen, initial encounter; R31.0 Gross hematuria; X58.XXXA Exposure to other specified factors, initial encounter
CPT/HCPCS: 36415; 80053; 81001; 82607; 82728; 82746; 83036; 85025; 87522

== ENCOUNTER 2025-02-01 08:22 | Outpatient (CLI) | payer MEDICARE, MEDICAID, SELFPAY ==
--- NOTE | ~2025-02-01 | XR_ITS ---
EXAMINATION: XR shoulder LT min 2V, 02/01/2025 8:25 CDT HISTORY: lt shoudler pain in jt x 2 months, limited ROM COMPARISON: No comparisons available. Findings: No acute fracture or malalignment. No significant degenerative changes. Soft tissues unremarkable. Impression: No acute fracture or malalignment. Reviewed, dictated and finalized at location P. Impression: No acute fracture or malalignment.
--- OUTSIDE RECORDS SUMMARY | 2025-02-01 08:40 | XMS_ITS | Clinical Summary ---
Author Organization [facility] Address [address] [place] [address] Care Team Providers Care Special Needs Teacher Name Role Phone Unavailable Primary Care Provider [...] of 2) 2014 COVID-19 Vaccine ( - 2024-2 6 season) 2024 Influenza Adult (#1) 2025 RSV Immunization or 60+ Years (1 - 1-dose 75+ series) 10/05/2039 Hepatitis A Vaccines Aged Out No long er eligible based on patient's age to complete this topic Meningococcal B Vaccine Aged Out No l onger eligible based on patient's age to complete this topic Meningococcal Vaccine Aged Out No arnold venessa eligible based on patient's age to complete this topic RSV Immunizations Under 20 Months Aged Out No longer eligible based on patient's age to complete this topic
--- OUTSIDE RECORDS SUMMARY | 2025-02-01 08:40 | XMS_ITS | Encounter Summary ---
Author Organization [facility] Address [address] [place] [address] Phone Care Team Providers Care Order Editor Name Role Phone Zion Thurman MD Primary Care Provider [phone] Reason for Visit * Reason Onset Date Comments Medication Refill 12/28/2020 Encounter Details Date Type Department Care Team (Late st Contact Info) Description 12/28/2020 Refill [facility] - Family Medicine [facility] [address] [place] [address] Zion Thurman MD [address] [place] [address] Medication Refill Social History Tobacco Use Types [...] CDT Message was sent to patient via [employer]. * Telephone Encounter - Brit Go RN [...] hyperglycemia, without long-term current use of insulin documented in this encounter Additional Health Concerns Infection Onset Date Last Indicated Resolved Time COVID - 19 Confirmed 10/18/2021 10/18/2021 022 12:16 AM CDT Assessment Noted Time PHQ-9 Depression Total Score: 0 06/16/19 20 12:48 PM CDT documented as of this encounter Care Teams Order Editor Relationship Specialty Start Date End Date Zion Thurman MD PCP - General Family Medicine 12/14/18 07/28/23 documented as of this encounter
--- OUTSIDE RECORDS SUMMARY | 2025-02-01 08:41 | XMS_ITS | Encounter Summary ---
Author Organization [facility] Address [address] [place] [address] Phone Care Team Providers Care Grid Molder Name Role Phone Zion Thurman MD Primary Care Provider [phone] Reason for Visit * Reason Onset Date Comments Medication Refill 10/20/2020 Encounter Details Date Type Department Care Team (Late st Contact Info) Description 10/20/2020 Refill [facility] - Family Medicine [facility] [address] [place] [address] Zion Thurman MD [address] [place] [address] Medication Refill Social History Tobacco Use Types [...] documented as of this encounter Care Teams Grid Molder Relationship Specialty Start Date End Date Zion Thurman MD PCP - General Family Medicine 12/14/18 07/28/23 documented as of this encounter
--- OUTSIDE RECORDS SUMMARY | 2025-02-01 08:41 | XMS_ITS | Clinical Summary ---
Author Organization [facility] Address [address] [place] [address] Phone Care Team Providers Care Violent Crimes Detective Name Role Phone Unavailable Primary Care Provider [...] hyperglycemia, without long-term current use of insulin Take 1 Tablet by mouth 2 times daily (with meals). 180 Tablet 3 1 Active Lancets MiscIndications :Type 2 diabetes mellitus with hyperglycemia, without long-term current use of insulin Use as directed 90 Lancet 11 1 Active Glucose Blood (Loctronixuch Ultra) StripIndication s:Type 2 diabetes mellitus with hyperglycemia, without long-term current use of insulin USE TO TEST BLOOD SUGAR ONCE DAILY [...] Comments Blood Pressure 134/83 05/26/2023 12:57 PM FULL STACK NET DEVELOPER Pulse 111 05/26/2023 12:57 PM FULL STACK NET DEVELOPER Temperature 36.2 C (97.2 F) 05/26/2023 12:57 PM FULL STACK NET DEVELOPER Respiratory Rate 14 05/26/2023 12:57 PM FULL STACK NET DEVELOPER Oxygen Saturation 98% 05/26/2023 12:57 PM FULL STACK NET DEVELOPER Inhaled Oxygen Concentration - - Weight 81.6 kg (180 lb) 05/26/2023 12:57 PM FULL STACK NET DEVELOPER Height 180.3 cm (5' 11) 05/26/2023 12:57 PM FULL STACK NET DEVELOPER Body Mass Index 25.1 05/26/2023 12:57 PM FULL STACK NET DEVELOPER Plan of Treatment Health Maintenance Due Date Last Done Comments Diabetes: Eye Exam 1965 Diabetes: Foot Exam 1965 TdaP Immunization 1965 Pneumococcal Immunization (50+ years) (1 of 2 - PCV) 10/05/1983 Cologuard 2009 Colonoscopy 2009 Colorectal Cancer Screening 2009 Immunochemical Fecal Occult Blood 2009 Zoster Immunization (1 of 2) 2014 Hepatitis B Immunization (2 of 3 - Risk 3-dose series) 11/28/2015 10/31/2015 Medicare Initial AWV [id number] 03/07/2018 PSA Discussion 10/05/2019 Diabetes: Hemoglobin A1c 12/17/2019 06/16/2019 Diabetes: Nephropathy Screening 06/27/2020 06/28/2019, 06/28/2019, 06/18/2019, Additional history exists Influenza Immunization (#1) 2024 SARS-COV-2 Immunization ( - season) 2024 Respiratory Syncytial Virus (RSV) Immunization (Adult) [...] 144 mmol/L 06/28/2019 5:[address] [facility] POTASSIUM 4.4 3.5 - 5.1 mmol/L 06/28/2019 5:37 PM CDT [facility] CHLORIDE 103 100 - 110 mmol/L 06/28/2019 5:37 PM [facility] CO2, VENOUS 26 22 - 32 mmol/L 06/28/2019 5:37 PM [facility] ANION GAP 15.4 8.0 - 20.0 mmol/L 06/28/2019 5:37 PM [facility] GLUCOSE 194(H) 70 - 99 mg/dL 06/28/2019 5:37 PM [facility] BUN 11 6 - 20 mg/dL 06/28/2019 5:37 PM [facility] CREATININE, BLOOD 0.64(L) 0.80 - 1.30 mg/dL 06/28/2019 5:37 PM [facility] BUN/CREATININE RATIO 17 12 - 20 ratio 06/28/2019 5:37 PM [facility] TOTAL PROTEIN 7.8 6.0 - 8.3 g/dL 06/28/2019 5:37 PM [facility] ALBUMIN 4.3 3.5 - 5.2 g/dL 06/28/2019 5:37 PM [facility] Comment: The colormetric methods used for the determination of Albumin may lead to falsely elevated test results in patients suffering from renal failure or insufficiency due to interference with other proteins. A/G RATIO 1.2 1.0 - 2.0 06/28/2019 5:37 PM [facility] CALCIUM 10.0 8.9 - 10.3 mg/dL 06/28/2019 5:37 PM [facility] T BILI <=0.2 <=1.2 mg/dL 06/28/2019 5:37 PM [facility] SGOT (AST) 21 <=40 U/L 06/28/2019 5:37 PM [facility] SGPT (ALT) 30 <=41 U/L 06/28/2019 5:37 PM [facility] ALKALINE PHOSPHATASE 68 40 - 130 U/L 06/28/2019 5:[address] [facility] GFR, EST. NONAFRICAN >60 >=60 06/28/2019 5:[address] [facility] GFR, EST. >60 >=60 020 5:[address] [facility] Comment: Creatinine Clearance is the preferred criteria for selecting drug dose adjustments in renally impaired patients. The GFR is provided as additional pertinent clinical information. GFR is reported in mL/min/1.73 sq m. Blood specimen (specimen) Venipuncture / Unknown 06/28/2019 10:58 AM CDT 06/28/2019 10:58 AM CDT us Rachna Lyons PAC CHEMISTRY ORDERABLES Fin al Result [facility] [address] [place] [address] * (ABNORMAL) POCT GLYCOSYLATED HEMOGLOBIN (06/16/2019 1:00 PM CDT) HGB-A1C 13.5(A) 4 - 6 06/16/2019 1:00 PM CDT us Viki Ferguson DESIGN LEADER, MAILING SPECIALIST POINT OF CARE TEST ING (MANUAL) Final Result from Last 3 Months or Most Recently Relevant to Health Maintenance Insurance MEDICARE MEDICARE C [facility]
--- OUTSIDE RECORDS SUMMARY | 2025-02-01 08:41 | XMS_ITS | Encounter Summary ---
Author Organization [facility] Address [address] [place] [address] Phone Care Team Providers Care Tarper Name Role Phone Zion Thurman MD Primary Care Provider [phone] Reason for Visit * Reason Comments Medication Refill Encounter Details Date Type Department Care Team (Late st Contact Info) Description 05/15/2022 Refill [facility] [address] [place] [address] Zion Thurman MD [address] [place] [address] Medication Refill Social History Tobacco Use Types [...] Marisela Adkins RN - 05/15/2022 9:30 AM CHAIN SALES CONSULTANT Needs appointment N SALES CONSULTANT documented in this encounter Plan of Treatment Not on file documented as of this encounter Visit Diagnoses Diagnosis Type 2 diabetes mellitus with hyperglycemia, without long-term current use of insulin documented in this encounter Additional Health Concerns Assessment Noted Time PHQ-9 Depression Total Score: 0 06/16/19 20 12:48 PM CDT documented as of this encounter Care Teams Tarper Relationship Specialty Start Date End Date Zion Thurman MD PCP - General Family Medicine 12/14/18 07/28/23 documented as of this encounter
--- OUTSIDE RECORDS SUMMARY | 2025-02-01 08:41 | XMS_ITS | Clinical Summary ---
Author Organization [facility] Address [address] [place] [address] Care Team Providers Care Integration Technician Name Role Phone Sara Rendon RN Unavailable [phone] Zion Thurman MD Primary Care Provider [phone] Source Comments [facility],non-owned Affiliates and Associated Physician Practices is amultiple site organization consisting of ambulatory clinics and hospital sitesin [place], [place], [place] and [place]. This disclosure is being madepursuant to the Care Everywhere program and may not contain all information available regarding this patient. Last updated 17.[facility] CommitChange Allergies Active Allergy Reactions Criticality Noted Date [...] on file Legal Sex Male 2:39 PM PSYCHOLOGIST RESEARCH ASSISTANT Gender Identity Not on file Sexual Orientation [...] 08/23/2022 0, 04/17/2017, 04/16/2017, Additional history exists DEPRESSION SCREENING 04/07/2024 MEDICARE AWV CALENDAR YEAR 2024 COVID-19 VACCINE ( - season) 2024 INFLUENZA VACCINE (#1) 2024 Respiratory Syncytial Virus (RSV) Vaccine Pt: or over 60 yrs (1 - 1-dose 75+ series) 10/05/2039 HEPATITIS C SCREENING Completed 09/23/2019, 020 HIV SCREENING Completed 09/23/2019 HEPATITIS B VACCINE [...] Recent Progress Patient-Stated? Author Mobility General No Natasah Mortensen RN Note: Expected end date: 04/06/21 The goal is to maintain or improve your mobility at the optimum level for you. Interventions: Medical Devices Implanted Type Area Dial Brusher Device Identifier Shelf Expiration Date Model / Serial / Lot Wax Bone Implanted:Qty: 1 on 04/13/2014 by Nikko Gunter DO at [facility] Right: Hip [employer] 01/05/2018 [id number] / / [id number] 3.5 Locking Screw Implanted:Qty: 1 on 04/13/2014 by Nikko Gunter DO at [facility] Right: Foot [id number] 6 / / 3.5 Non Locking Screw Implanted:Qty: 1 on 04/13/2014 by Nikko Gunter DO at [facility] Right: Foot [id number] 7.5 / / Ortholink Standard Plate Implanted:Qty: 1 [facility] / / 4.0 Non Locking Screw Implanted:Qty: 1 on 04/13/2014 by Nikko Gunter DO at [facility] Right: Foot [id number] 75 / / 3.5 Non Locking Screw Implanted:Qty: 1 on 04/13/2014 by Nikko Gunter DO at [facility] Right: Foot [id number] 0 / / Plate Implanted:Qty: 1 on 04/13/2014 by Nikko Gunter DO at [facility] Right: Foot [id number]-001-00 / / 3.5 Locking Screw Implanted:Qty: 1 on 04/13/2014 by Nikko Gunter DO at [facility] Right: Foot [id number] 8 / / 3.5 Non Locking Screw Implanted:Qty: 1 on 04/13/2014 by Nikko Gunter DO at [facility] Right: Foot [id number] / / Plate Implanted:Qty: 1 on 04/13/2014 by Nikko Gunter DO at [facility] Right: Foot PSYCHIATRIC SECRETARY-002-Y / / 3.5 Locking Screw Implanted:Qty: 1 on 04/13/2014 by Nikko Gunter DO at [facility] Right: Foot [id number] 0 / / 3.5 Non Locking Screw Implanted:Qty: 1 on 04/13/2014 by Nikko Gunter DO at [facility] Right: Foot [id number] 4 / / Explanted Type Area Dial Brusher Device Identifier Shelf Expiration Date Model / Serial / Lot 3.5 Locking Screw Explanted:Qty: 1 on 04/13/2014 at [facility] Right: Foot PSYCHIATRIC SECRETARY-021-35- 325 / / 3.5 Locking Screw Implanted:Qty: 1 Explanted:Qty: 1 on 04/13/2014 at [facility] Right: Foot PSYCHIATRIC SECRETARY-021-35- 22 / / Procedures Procedure Name Priority Date/Time Associated Diagnosis Comments GLUCOSE - POINT OF CARE Routine 08/24/2019 11:00 AM CDT from Last 3 Months or Most Recently Relevant to Health Maintenance Results * (ABNORMAL) GLUCOSE - POINT OF CARE (08/24/2019 11:00 AM CDT) Glucose WB/POC 159(H) 70 - 115 mg/dL 08/24/2019 11:04 AM CDT [facility] Specimen Type Venous 08/24/2019 11:04 AM CDT [facility] Blood BLOOD SPECIMEN / Unknown 08/24/2019 11:00 AM CDT 08/24/2019 11:04 AM CDT Nikko Gunter DO LAB - POINT OF CARE ORDERABLES Final Result [address] [address], [facility] [phone] from Last 3 Months or Most Recently Relevant to Health Maintenance Insurance [facility] MANAGED MEDICARE ADV [place]ICAID - [place] * Guarantor: DAMASO MESSER JR. Account Type Relation to Patient Date of Phone Billing Address Personal/Family 1965 [address] [place] [id number] MEDICAID - OUT OF STATE [employer] MANAGED MEDICARE ADV Member Subscriber Plan / Payer (Ef fective 2017-Present) Name:Damaso Messer Member ID:[id number] Relation to Subscriber:Self Name:DAMASO MESSER JR Subscriber ID:[id number] Payer ID:Not on file Group ID:Not on file Type:Medicare Address: [place] [id number] MEDICAID - OUT OF STATE MEDICARE Member Subscriber Plan / Payer ( fective 2017-Present) Name:Damaso Messer Member ID:[id number] Relation to Subscriber:Self Name:DAMASO MESSER JR Subscriber ID:[id number] Payer ID:Not on file Group ID:Not on file Type:Medicare Address: [place] [id number] MEDICAID - OUT OF STATE Advance Directives * Full Code (Latest Code Status on File) Date Activated Date Inactivated Comments 04/13/2014 7:24 PM 04/15/2014 5:18 PM Care Teams Integration Technician Relationship Specialty Start Date End Date Zion Thurman MD PCP - General Family Medicine 12/05/20 Sara Rendon, RN Manager Money 04/14/14
== END 2025-02-01 08:23 | disposition home or self-care (01) ==
LOC: ANHASCIMG 08:23
PROVIDERS: PCP Internal Medicine; Visit Provider Internal Medicine
DX: M25.512 Pain in left shoulder (principal)
CPT/HCPCS: 73030